=== PATIENT | female | born 1950 | race Caucasian/White ===

== ENCOUNTER 2022-03-20 07:29 | Emergency (ER) | payer MEDICARE, BC ==
--- NOTE | 2022-03-20 08:08 | ED Physician Documentation ---
PD HPI HEAD INJURY - Stated complaint Stated Complaint: HEAD INJ - Chief complaint Chief Complaint: Trauma Hd/Nk - History obtained from History obtained from: Patient, Family - History of Present Illness Mechanism of head injury: Fell Where head injury occurred: [place] Timing - onset: Today Location of injury: Left, Front Quality of pain: Pain Associated symptoms: AMS. No: LOC, Amnesia, Nausea / vomiting, Neck pain, Paresthesias, Seizures, Ear drainage, Nasal drainage Symptoms improve with: Rest Symptoms worsen with: Palpation Contributing factors: No: Anticoagulated, Intoxicated Similar symptoms before: Diagnosis (laceration) Recently seen: Not recently seen - Additional information Additional information: 72-year-old female with a history of hypertension who is on lisinopril and hydrochlorothiazide has had a fall this morning while she was walking her dog and playing a video game on her telephone. She tripped and fell forward striking the left side of her forehead. Her was with her and states that he felt that she was a little bit disoriented for a bit right when this happened. The patient denies any disorientation now and denies any nausea, difficulty concentrating, headache or dizziness. She has had a similar laceration to the left side of her forehead after tripping over her dog a number of years ago. Review of Systems Constitutional: denies: Fever Eyes: denies: Decreased vision Ears: denies: Ear pain Nose: denies: Congestion Throat: denies: Sore throat Respiratory: denies: Cough GI: denies: Nausea, Vomiting, Diarrhea PD PAST MEDICAL HISTORY - Allergies Allergies/Adverse Reactions: Allergies Allergy/AdvReac Type Severity Reaction Status Date / Time No Known Drug Allergies Allergy Verified 03/20/22 07:40 PD ED PE NORMAL - Vitals Vital signs reviewed: Yes - General General: Alert and oriented X 3, No acute distress, Well developed/nourished - HEENT HEENT: PERRL, EOMI, Other (4 cm laceration above the left eye in the forehead without involvement of deeper structures and no foreign material in the wound.) - Neck Neck: Supple, no meningeal sign, No bony TTP - Respiratory Respiratory: No respiratory distress - Derm Derm: Normal color, Warm and dry, No rash - Extremities Extremities: No deformity, No edema - Neuro Neuro: Alert and oriented X 3, tombstone erector 2-12 intact, No motor deficit, No sensory deficit, Normal speech Eye Opening: Spontaneous Motor: Obeys Commands Verbal: Oriented GCS Score: 15 - Psych Psych: Normal mood, Normal affect Results - Vitals Vitals: Vital Signs - 24 hr 03/20/22 07:31 Temperature 36 C L Heart Rate 70 Respiratory 14 Rate Blood Pressure 129/71 O2 Saturation 100 Oxygen O2 Source Room air Procedures - Laceration (location) forehead Length in cm: 4 Wound type: Linear, Clean Neurovascular status: Sensory intact, Motor intact, Vascular intact Anesthesia: Lidocaine 1% Wound preparation: Hibiclens, Irrigated copiously NS, Wound explored, To the base Skin layer closure: Nylon, Interrupted, Size #-0 - enter number (5-0), Sutures - enter # (8) Other: Patient tolerated well, Neurovascular intact, Dressing applied, Tetanus UTD (2016) PD MEDICAL DECISION MAKING - ED course Complexity details: considered differential, d/w patient, d/w family ED course: 72-year-old Ela Ramírez with a laceration above her left eye and a mild concussion has repair of the laceration and will need to have sutures removed in about 5 days. Departure - Departure Disposition: 01 Home, Self Care Clinical Impression: Concussion Qualifiers: Encounter type: initial encounter Loss of consciousness presence/duration: without LOC Qualified Code(s): S06.0X0A - Concussion without loss of consciousness, initial encounter Forehead laceration Qualifiers: Encounter type: initial encounter Qualified Code(s): S01.81XA - Laceration without foreign body of other part of head, initial encounter Condition: Stable Instructions: ED Concussion, ED Laceration Facial Sutr Tape Follow-Up: Kareem Sanchez ARNP [Primary Care Provider] - Comments: Ela, today it looks like you have had a mild concussion and we are expecting of complete recovery in regards to the concussion. The laceration will need to have sutures removed in about 5 days.
[2022-03-20] MEDS: lidocaine 1% 20 ML MDV SUBQ ONE (08:18)
[2022-03-20 09:26] VITALS: BP 115/67
== END 2022-03-20 09:24 | disposition home or self-care (01) ==
LOC: ED 07:29
DX: S01.81XA Laceration without foreign body of other part of head, initial encounter (principal); S06.0X0A Concussion without loss of consciousness, initial encounter; W01.10XA Fall on same level from slipping, tripping and stumbling with subsequent striking against unspecified object, initial encounter; Y93.K1 Activity, walking an animal; Y92.830 Public park as the place of occurrence of the external cause
CPT/HCPCS: 12013; 99281

== ENCOUNTER 2022-12-24 10:04 | Observation (INO) | payer MEDICARE, BC ==
--- OUTSIDE RECORDS SUMMARY | 2022-12-24 10:53 | EXTERNAL MEDICAL SUMMARY RPT | Continuity of Care Document ---
:1950 Author Organization [facility] Address [address] [place] [address] Phone Care Team Providers Name Role Phone Kareem Sanchez Unavailable Unavailable Allergies No information. Encounters No information. Functional Status No information. Immunizations No information. 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 Results/Labs test date author facility value unit interpret ation Result panel 1 (unknown) (no date) (unknown[facility] Result panel 2 (unknown) (no date) (unknown[facility]) Result panel 3 (unknown) (no date) (unknown[facility]) Result panel 4 (unknown) (no date) (unknown[facility]) Result panel 5 (unknown) (no date) (unknown[facility]) Result panel 6 (unknown) (no date) (unknown[facility]) Result panel 7 (unknown) (no date) (unknown[facility]) Result panel 8 (unknown) (no date) (unknown[facility]) Result panel 9 (unknown) (no date) (unknown[facility]) Result panel 10 (unknown) (no date) (unknown[facility]) Result panel 11 (unknown) (no date) (unknown[facility]) Result panel 12 (unknown) (no date) (unknown[facility]) Result panel 13 (unknown) (no date) (unknown[facility]) Result panel 14 (unknown) (no date) (unknown[facility]) Result panel 15 (unknown) (no date) (unknown[facility]) Result panel 16 (unknown) (no date) (unknown[facility]) Result panel 17 (unknown) (no date) (unknown[facility]) Result panel 18 (unknown) (no date) (unknown[facility]) Result panel 19 (unknown) (no date) (unknown[facility]) Result panel 20 (unknown) (no date) (unknown[facility]) Result panel 21 (unknown) (no date) (unknown[facility]) Result panel 22 (unknown) (no date) (unknown[facility]) Result panel 23 (unknown) (no date) (unknown[facility] Result panel 24 (unknown) (no date) (unknown) (unknown) 12.6 % (unkn own) (unknown) (no date) (unknown) (unknown) 13.0 g/dl (unkn own) (unknown) (no date) (unknown) (unknown) 286 x10 3/ul (unkn own) (unknown) (no date) (unknown) (unknown) 3.8 x10 3/ul (unkn own) (unknown) (no date) (unknown) (unknown) 31.4 pg (unkn own) (unknown) (no date) (unknown) (unknown) 33.9 % (unkn own) (unknown) (no date) (unknown) (unknown) 38.3 % (unkn own) (unknown) (no date) (unknown) (unknown) 4.12 x10 6/ul (unkn own) (unknown) (no date) (unknown) (unknown) 92.8 fl (unkn own) Result panel 25 (unknown) (no date) (unknown) (unknown) > 60 ml/min (unkn own) (unknown) (no date) (unknown) (unknown) > 60 ml/min (unkn own) (unknown) (no date) (unknown) (unknown) 0.67 mg/dl (unkn own) (unknown) (no date) (unknown) (unknown) 1.3 mg/dl (unkn own) (unknown) (no date) (unknown) (unknown) 1.5 (units unknown) (unknown) (unknown) (no date) (unknown) (unknown) 100 mmol/l (unkn own) (unknown) (no date) (unknown) (unknown) 137 mmol/l (unkn own) (unknown) (no date) (unknown) (unknown) 156 mg/dl (unkn own) (unknown) (no date) (unknown) (unknown) 156 mg/dl (unkn own) (unknown) (no date) (unknown) (unknown) 18 mg/dl (unkn own) (unknown) (no date) (unknown) (unknown) 2.8 g/dl (unkn own) (unknown) (no date) (unknown) (unknown) 26.9 (units unknown) (unknown) (unknown) (no date) (unknown) (unknown) 31 mmol/l (unkn own) (unknown) (no date) (unknown) (unknown) 35 iu/l (unkn own) (unknown) (no date) (unknown) (unknown) 36 iu/l (unkn own) (unknown) (no date) (unknown) (unknown) 4.0 mmol/l (unkn own) (unknown) (no date) (unknown) (unknown) 4.3 g/dl (unkn own) (unknown) (no date) (unknown) (unknown) 45 u/l (unkn own) (unknown) (no date) (unknown) (unknown) 61 mg/dl (unkn own) (unknown) (no date) (unknown) (unknown) 61 mg/dl (unkn own) (unknown) (no date) (unknown) (unknown) 67 mg/dl (unkn own) (unknown) (no date) (unknown) (unknown) 67 mg/dl (unkn own) (unknown) (no date) (unknown) (unknown) 7.1 g/dl (unkn own) (unknown) (no date) (unknown) (unknown) 82 mg/dl (unkn own) (unknown) (no date) (unknown) (unknown) 82 mg/dl (unkn own) (unknown) (no date) (unknown) (unknown) 87 mg/dl (unkn own) (unknown) (no date) (unknown) (unknown) 87 mg/dl (unkn own) (unknown) (no date) (unknown) (unknown) 9.3 mg/dl (unkn own) Result panel 26 (unknown) (no date) (unknown) (unknown) 0.80 uiu/ml (unkn own) Result panel 27 (unknown) (no (unknown) (unknown) (no value) (units (unk nown) date) unknown) (unknown) (no (unknown) (unknown) [id number] (units (unkn own) date) unknown) (unknown) (no (unknown) (unknown) 09/01/22 (units (unkno wn) date) unknown) (unknown) (no (unknown) (unknown) 72-year-old (units (un known) date) female presents unknown) for annual visit to follow-up on lab work and (unknown) (no (unknown) (unknown) Age/Sex: 72 / F (units (unknown) date) Date of Service: unknown) (unknown) (no (unknown) (unknown) Allergies (units (unkn own) date) unknown) (unknown) (no (unknown) (unknown) [place], [place] (units ( unknown) date) [id number] unknown) (unknown) (no (unknown) (unknown) Anesthesia (units (unk nown) date) unknown) (unknown) (no (unknown) (unknown) Asthma (units (unkno wn) date) unknown) (unknown) (no (unknown) (unknown) Attending Dr: (units ( unknown) date) Kareem ERIC unknown) (unknown) (no (unknown) (unknown) Brother Age: 64 (units (unknown) date) Hypertension unknown) (unknown) (no (unknown) (unknown) Brother Age: 69 (units (unknown) date) Alcoholic unknown) (unknown) (no (unknown) (unknown) Chicken pox (units (un known) date) (-1960) unknown) (unknown) (no (unknown) (unknown) Chief Complaint (units (unknown) date) unknown) (unknown) (no (unknown) (unknown) Chief Complaint: (units (unknown) date) Follow-up lab unknown) work/chronic conditions (unknown) (no (unknown) (unknown) : 1950 (units (unknown) date) Acct:[id number] unknown) (unknown) (no (unknown) (unknown) Dept at (units (unkno wn) date) . unknown) (unknown) (no (unknown) (unknown) Details: (units (unkno wn) date) unknown) (unknown) (no (unknown) (unknown) Documented By: (units (unknown) date) Kareem Sanchez unknown) 12/01/22 0743 (unknown) (no (unknown) (unknown) Draft (units (unkno wn) date) unknown) (unknown) (no (unknown) (unknown) Dyslipidemia (units (u nknown) date) unknown) (unknown) (no (unknown) (unknown) Family History (units (unknown) date) (Reviewed 11/26/21 unknown) @ 10:48 by JEANETH Calvin) (unknown) (no (unknown) (unknown) Family Practice (units (unknown) date) Office Visit unknown) (unknown) (no (unknown) (unknown) Father (units (unknown) date) Cancer unknown) (unknown) (no (unknown) (unknown) [facility]) (unknown) (no (unknown) (unknown) Fractures (units (unkn own) date) unknown) (unknown) (no (unknown) (unknown) 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 (units (unkno wn) date) unknown) (unknown) (no (unknown) (unknown) Grandfather (units (un known) date) Heart unknown) disease (unknown) (no (unknown) (unknown) Grandmother (units (un known) date) Heart unknown) disease (unknown) (no (unknown) (unknown) HPI (units (unkno wn) date) unknown) (unknown) (no (unknown) (unknown) Heart disease (units ( unknown) date) unknown) (unknown) (no (unknown) (unknown) High cholesterol (units (unknown) date) unknown) (unknown) (no (unknown) (unknown) History of (units (unk nown) date) tonsillectomy unknown) (-1953) (unknown) (no (unknown) (unknown) Hyperlipidemia (units (unknown) date) unknown) (unknown) (no (unknown) (unknown) Hypertension (units (u nknown) date) () unknown) (unknown) (no (unknown) (unknown) Hypertension (units (u nknown) date) unknown) (unknown) (no (unknown) (unknown) Hyperthyroidism (units (unknown) date) unknown) (unknown) (no (unknown) (unknown) Hypochondria (units (u nknown) date) unknown) (unknown) (no (unknown) (unknown) Intake (units (unkno wn) date) unknown) (unknown) (no (unknown) (unknown) Last Menstural (units (unknown) date) Cycle + Details unknown) (unknown) (no (unknown) (unknown) Loc: [facility] (units (unkno wn) date) unknown) (unknown) (no (unknown) (unknown) [facility] (-1960) (units (unknown) date) unknown) (unknown) (no (unknown) (unknown) Medical History (units (unknown) date) (Updated 11/26/21 unknown) @ 10:52 by JEANETH Calvin) (unknown) (no (unknown) (unknown) Mother (units (unknown) date) Diabetes mellitus unknown) (unknown) (no (unknown) (unknown) NEEDS LABS (units (unk nown) date) ORDERED AND unknown) COMPLETED. DUE FOR MAMMOGRAM AND COLORECTAL CANCER (unknown) (no (unknown) (unknown) Osteopenia (units (unk nown) date) unknown) (unknown) (no (unknown) (unknown) Osteoporosis (units (u nknown) date) () unknown) (unknown) (no (unknown) (unknown) Other Menstrual (units (unknown) date) Period: unknown) Postmenopausal (unknown) (no (unknown) (unknown) Ovarian cyst (units (u nknown) date) () unknown) (unknown) (no (unknown) (unknown) PFSH (units (unkno wn) date) unknown) (unknown) (no (unknown) (unknown) Patient completed (units (unknown) date) COVID-19 vaccine unknown) series and booster as well as her yearly flu (unknown) (no (unknown) (unknown) Patient is (units (unk nown) date) up-to-date on unknown) mammogram. She declines colonoscopy but does agree to (unknown) (no (unknown) (unknown) Patient reports (units (unknown) date) that she has been unknown) doing well. She is staying active working in (unknown) (no (unknown) (unknown) Patient: (units (unkno wn) date) Ela Ramírez unknown) MR#: M (unknown) (no (unknown) (unknown) Reason For Visit (units (unknown) date) unknown) (unknown) (no (unknown) (unknown) SCREENING. SHE (units (unknown) date) NEVER GOT HER DEXA unknown) SCAN DONE ORDERED LAST YEAR. (unknown) (no (unknown) (unknown) Signed By: (units (unk nown) date) unknown) (unknown) (no (unknown) (unknown) Sister Age: 54 (units (unknown) date) History of unknown) hysterectomy (unknown) (no (unknown) (unknown) Sister Age: 65 (units (unknown) date) History of unknown) hysterectomy (unknown) (no (unknown) (unknown) Smoking Status: (units (unknown) date) Never smoker unknown) (unknown) (no (unknown) (unknown) Status post knee (units (unknown) date) surgery (02/22/06) unknown) (unknown) (no (unknown) (unknown) Status post knee (units (unknown) date) surgery (10/07/07) unknown) (unknown) (no (unknown) (unknown) Status post (units (un known) date) ovarian cystectomy unknown) (-1974) (unknown) (no (unknown) (unknown) Status post tubal (units (unknown) date) ligation (-1982) unknown) (unknown) (no (unknown) (unknown) Stroke (units (unkno wn) date) unknown) (unknown) (no (unknown) (unknown) Surgical History (units (unknown) date) (Reviewed 11/26/21 unknown) @ 10:48 by JEANETH Calvin) (unknown) (no (unknown) (unknown) This note may (units ( unknown) date) have been all or unknown) partially generated using voice recognition (unknown) (no (unknown) (unknown) Tinnitus (-2011) (units (unknown) date) unknown) (unknown) (no (unknown) (unknown) Tobacco + (units (unkn own) date) Substance Use unknown) (unknown) (no (unknown) (unknown) Tobacco Status (units (unknown) date) unknown) (unknown) (no (unknown) (unknown) Visit Reasons: (units (unknown) date) Annual physical unknown) (unknown) (no (unknown) (unknown) We saw the (units (unk nown) date) patient last about unknown) 1 year ago. At that time labs and blood pressure (unknown) (no (unknown) (unknown) chronic (units (unkno wn) date) conditions/update unknown) medications. She has not had any recent lab work. (unknown) (no (unknown) (unknown) fairly healthy (units (unknown) date) diet overall. She unknown) underwent cataract surgery bilaterally over (unknown) (no (unknown) (unknown) fit test. She has (units (unknown) date) a history of unknown) osteopenia, last DEXA was in 2018. (unknown) (no (unknown) (unknown) have occurred. If (units (unknown) date) there are any unknown) questions, please contact the Medical Records (unknown) (no (unknown) (unknown) her yd and doing (units (unknown) date) a lot of walking unknown) in the park. She reports that she eats a (unknown) (no (unknown) (unknown) may occur. (units (unk nown) date) Occasional unknown) wrong-word or 'sound-alike' substitutions may have (unknown) (no (unknown) (unknown) occasionally; she (units (unknown) date) uses a THC balm as unknown) needed which helps this. (unknown) (no (unknown) (unknown) occurred due to (units (unknown) date) the inherent unknown) limitations of voice recognition software. Please (unknown) (no (unknown) (unknown) penicillin G (units (u nknown) date) [PENICILLIN G] unknown) Allergy (Unknown, Verified 11/26/21 09:56) (unknown) (no (unknown) (unknown) read the note (units ( unknown) date) carefully and unknown) recognize, using context, where these substitutions (unknown) (no (unknown) (unknown) software. 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 Her left knee pain returns (unknown) (no (unknown) (unknown) vaccine. (units (unkno wn) date) unknown) (unknown) (no (unknown) (unknown) were stable and (units (unknown) date) we maintained her unknown) regimen as it was. Result panel 28 (unknown) (no (unknown) (unknown) (no value) (units (unk nown) date) unknown) (unknown) (no (unknown) (unknown) (PF)) 0.5 ml IM (units (unknown) date) ONCE #1 ea unknown) 11/26/21 [Rx Confirmed 12/01/22] (unknown) (no (unknown) (unknown) .COMPLEX #90 tabs (units (unknown) date) 08/26/22 [Rx unknown) Confirmed 12/01/22] (unknown) (no (unknown) (unknown) [id number] (units (unkn own) date) unknown) (unknown) (no (unknown) (unknown) 12/01/22 (units (unkno wn) date) unknown) (unknown) (no (unknown) (unknown) 12/01/22] (units (unkn own) date) unknown) (unknown) (no (unknown) (unknown) 11:13 (units (unkno wn) date) unknown) (unknown) (no (unknown) (unknown) 72 yo female (units (u nknown) date) presents today for unknown) annual Medical Well[facility]. (unknown) (no (unknown) (unknown) 72-year-old (units (un known) date) female presents unknown) for annual visit to follow-up on lab work and (unknown) (no (unknown) (unknown) Age/Sex: 72 / F (units (unknown) date) Date of Service: unknown) (unknown) (no (unknown) (unknown) Allergies (units (unkn own) date) unknown) (unknown) (no (unknown) (unknown) [place], [place] (units ( unknown) date) [id number] unknown) (unknown) (no (unknown) (unknown) Anesthesia (units (unk nown) date) unknown) (unknown) (no (unknown) (unknown) Asthma (units (unkno wn) date) unknown) (unknown) (no (unknown) (unknown) Attending Dr: (units ( unknown) date) Kareem ERIC unknown) (unknown) (no (unknown) (unknown) BMI 22.8 (units (unkno wn) date) unknown) (unknown) (no (unknown) (unknown) BP 120/80 (units (unkn own) date) unknown) (unknown) (no (unknown) (unknown) Blood Pressure (units (unknown) date) Location Lt unknown) brachial (unknown) (no (unknown) (unknown) Brother Age: 64 (units (unknown) date) Hypertension unknown) (unknown) (no (unknown) (unknown) Brother Age: 69 (units (unknown) date) Alcoholic unknown) (unknown) (no (unknown) (unknown) Chicken pox (units (un known) date) (-1960) unknown) (unknown) (no (unknown) (unknown) Chief Complaint (units (unknown) date) unknown) (unknown) (no (unknown) (unknown) Chief Complaint: (units (unknown) date) Follow-up lab unknown) work/chronic conditions (unknown) (no (unknown) (unknown) : 1950 (units (unknown) date) Acct:[id number] unknown) (unknown) (no (unknown) (unknown) Dept at (units (unkno wn) date) . unknown) (unknown) (no (unknown) (unknown) Details: (units (unkno wn) date) unknown) (unknown) (no (unknown) (unknown) Documented By: (units (unknown) date) Kareem Sanchez unknown) 12/01/22 0743 (unknown) (no (unknown) (unknown) Draft (units (unkno wn) date) unknown) (unknown) (no (unknown) (unknown) Dyslipidemia (units (u nknown) date) unknown) (unknown) (no (unknown) (unknown) Family History (units (unknown) date) (Reviewed 11/26/21 unknown) @ 10:48 by JEANETH Calvin) (unknown) (no (unknown) (unknown) Family Practice (units (unknown) date) Office Visit unknown) (unknown) (no (unknown) (unknown) Father (units (unknown) date) Cancer unknown) (unknown) (no (unknown) (unknown) [facility] unknown) (unknown) (no (unknown) (unknown) Fractures (units (unkn own) date) unknown) (unknown) (no (unknown) (unknown) GI UPSET (units (unkno wn) date) unknown) (unknown) (no (unknown) (unknown) Grandfather (units (un known) date) Heart unknown) disease (unknown) (no (unknown) (unknown) Grandmother (units (un known) date) Heart unknown) disease (unknown) (no (unknown) (unknown) HPI (units (unkno wn) date) unknown) (unknown) (no (unknown) (unknown) Heart disease (units ( unknown) date) unknown) (unknown) (no (unknown) (unknown) Height 5 ft 6.5 (units (unknown) date) in unknown) (unknown) (no (unknown) (unknown) High cholesterol (units (unknown) date) unknown) (unknown) (no (unknown) (unknown) History of (units (unk nown) date) tonsillectomy unknown) (-1953) (unknown) (no (unknown) (unknown) Hyperlipidemia (units (unknown) date) unknown) (unknown) (no (unknown) (unknown) Hypertension (units (u nknown) date) (-1977) unknown) (unknown) (no (unknown) (unknown) Hypertension (units (u nknown) date) unknown) (unknown) (no (unknown) (unknown) Hyperthyroidism (units (unknown) date) unknown) (unknown) (no (unknown) (unknown) Hypochondria (units (u nknown) date) unknown) (unknown) (no (unknown) (unknown) Intake Note: (units (u nknown) date) unknown) (unknown) (no (unknown) (unknown) Intake performed (units (unknown) date) by: Sara Meyer unknown) (unknown) (no (unknown) (unknown) Intake (units (unkno wn) date) unknown) (unknown) (no (unknown) (unknown) Intake- Clincial (units (unknown) date) 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 unknown) (unknown) (no (unknown) (unknown) Last Menstural (units (unknown) date) Cycle + Details unknown) (unknown) (no (unknown) (unknown) Loc: [facility] (units (unkno wn) date) unknown) (unknown) (no (unknown) (unknown) [facility] (-1960) (units (unknown) date) unknown) (unknown) (no (unknown) (unknown) Medical History (units (unknown) date) (Updated 11/26/21 unknown) @ 10:52 by JEANETH Calvin) (unknown) (no (unknown) (unknown) Medications (units (un known) date) unknown) (unknown) (no (unknown) (unknown) Mother (units (unknown) date) Diabetes mellitus unknown) (unknown) (no (unknown) (unknown) NEEDS LABS (units (unk nown) date) ORDERED AND unknown) COMPLETED. DUE FOR MAMMOGRAM AND COLORECTAL CANCER (unknown) (no (unknown) (unknown) Osteopenia (units (unk nown) date) unknown) (unknown) (no (unknown) (unknown) Osteoporosis (units (u nknown) date) () unknown) (unknown) (no (unknown) (unknown) Other Menstrual (units (unknown) date) Period: unknown) Postmenopausal (unknown) (no (unknown) (unknown) Ovarian cyst (units (u nknown) date) (-1975) unknown) (unknown) (no (unknown) (unknown) Oxygen Delivery (units (unknown) date) Method room air unknown) (unknown) (no (unknown) (unknown) PFSH (units (unkno wn) date) unknown) (unknown) (no (unknown) (unknown) Patient completed (units (unknown) date) COVID-19 vaccine unknown) series and booster as well as her yearly flu (unknown) (no (unknown) (unknown) Patient is (units (unk nown) date) up-to-date on unknown) mammogram. She declines colonoscopy but does agree to (unknown) (no (unknown) (unknown) Patient reports (units (unknown) date) that she has been unknown) doing well. She is staying active working in (unknown) (no (unknown) (unknown) Patient: (units (unkno wn) date) Ela Ramírez unknown) MR#: M (unknown) (no (unknown) (unknown) Position Sitting (units (unknown) date) unknown) (unknown) (no (unknown) (unknown) Pulse 66 (units (unkno wn) date) unknown) (unknown) (no (unknown) (unknown) Pulse Oximetry (units (unknown) date) (%) 99 unknown) (unknown) (no (unknown) (unknown) Pulse Source (units (u nknown) date) Monitor unknown) (unknown) (no (unknown) (unknown) Reason For Visit (units (unknown) date) unknown) (unknown) (no (unknown) (unknown) Respiration 16 (units (unknown) date) unknown) (unknown) (no (unknown) (unknown) SCREENING. SHE (units (unknown) date) NEVER GOT HER DEXA unknown) SCAN DONE ORDERED LAST YEAR. (unknown) (no (unknown) (unknown) Signed By: (units (unk nown) date) unknown) (unknown) (no (unknown) (unknown) Sister Age: 54 (units (unknown) date) History of unknown) hysterectomy (unknown) (no (unknown) (unknown) Sister Age: 65 (units (unknown) date) History of unknown) hysterectomy (unknown) (no (unknown) (unknown) Smoking Status: (units (unknown) date) Never smoker unknown) (unknown) (no (unknown) (unknown) Status post knee (units (unknown) date) surgery (02/22/06) unknown) (unknown) (no (unknown) (unknown) Status post knee (units (unknown) date) surgery (10/07/07) unknown) (unknown) (no (unknown) (unknown) Status post (units (un known) date) ovarian cystectomy unknown) (-1974) (unknown) (no (unknown) (unknown) Status post tubal (units (unknown) date) ligation () unknown) (unknown) (no (unknown) (unknown) Stroke (units (unkno wn) date) unknown) (unknown) (no (unknown) (unknown) Surgical History (units (unknown) date) (Reviewed 11/26/21 unknown) @ 10:48 by JEANETH Calvin) (unknown) (no (unknown) (unknown) This note may (units ( unknown) date) have been all or unknown) partially generated using voice recognition (unknown) (no (unknown) (unknown) Tinnitus (-2011) (units (unknown) date) unknown) (unknown) (no (unknown) (unknown) Tobacco + (units (unkn own) date) Substance Use unknown) (unknown) (no (unknown) (unknown) Tobacco Status (units (unknown) date) unknown) (unknown) (no (unknown) (unknown) Visit Reasons: (units (unknown) date) Annual physical unknown) (unknown) (no (unknown) (unknown) Vitals (units (unkno wn) date) unknown) (unknown) (no (unknown) (unknown) We saw the (units (unk nown) date) patient last about unknown) 1 year ago. At that time labs and blood pressure (unknown) (no (unknown) (unknown) Weight 144 lb (units ( unknown) date) unknown) (unknown) (no (unknown) (unknown) [Rx Confirmed (units ( unknown) date) 12/01/22] unknown) (unknown) (no (unknown) (unknown) atorvastatin 10 (units (unknown) date) mg tablet unknown) (Lipitor) 10 mg PO HS #90 tabs 08/26/22 [Rx Confirmed (unknown) (no (unknown) (unknown) chronic (units (unkno wn) date) conditions/update unknown) medications. She has not had any recent lab work. (unknown) (no (unknown) (unknown) fairly healthy (units (unknown) date) diet overall. She unknown) underwent cataract surgery bilaterally over (unknown) (no (unknown) (unknown) fit test. She has (units (unknown) date) a history of unknown) osteopenia, last DEXA was in 2018. (unknown) (no (unknown) (unknown) have occurred. If (units (unknown) date) there are any unknown) questions, please contact the Medical Records (unknown) (no (unknown) (unknown) her yd and doing (units (unknown) date) a lot of walking unknown) in the park. She reports that she eats a (unknown) (no (unknown) (unknown) levothyroxine 112 (units (unknown) date) mcg tablet unknown) (Synthroid) See Rx Instructions .Route .COMPLEX #90 (unknown) (no (unknown) (unknown) lisinopril 10 mg (units (unknown) date) tablet See Rx unknown) Instructions .Route .COMPLEX #90 tabs 11/17/22 (unknown) (no (unknown) (unknown) may occur. (units (unk nown) date) Occasional unknown) wrong-word or 'sound-alike' substitutions may have (unknown) (no (unknown) (unknown) occasionally; she (units (unknown) date) uses a THC balm as unknown) needed which helps this. (unknown) (no (unknown) (unknown) occurred due to (units (unknown) date) the inherent unknown) limitations of voice recognition software. Please (unknown) (no (unknown) (unknown) penicillin G (units (u nknown) date) [PENICILLIN G] unknown) Allergy (Unknown, Verified 12/01/22 11:12) (unknown) (no (unknown) (unknown) read the note (units ( unknown) date) carefully and unknown) recognize, using context, where these substitutions (unknown) (no (unknown) (unknown) software. 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 Her left knee pain returns (unknown) (no (unknown) (unknown) triamterene 75 (units (unknown) date) mg-hydrochlorothia unknown) zide 50 mg tablet See Rx Instructions .Route (unknown) (no (unknown) (unknown) vaccine. (units (unkno wn) date) unknown) (unknown) (no (unknown) (unknown) varicella-zoster (units (unknown) date) glycoE vacc-AS01B unknown) adj(PF) 50 mcg/0.5 mL IM susp, kit (Shingrix (unknown) (no (unknown) (unknown) were stable and (units (unknown) date) we maintained her unknown) regimen as it was. Result panel 29 (unknown) (no (unknown) (unknown) (no value) (units (unk nown) date) unknown) (unknown) (no (unknown) (unknown) (PF)) 0.5 ml IM (units (unknown) date) ONCE #1 ea unknown) 11/26/21 [Rx Confirmed 12/01/22] (unknown) (no (unknown) (unknown) .COMPLEX #90 tabs (units (unknown) date) 08/26/22 [Rx unknown) Confirmed 12/01/22] (unknown) (no (unknown) (unknown) [id number] (units (unkn own) date) unknown) (unknown) (no (unknown) (unknown) 12/01/22 (units (unkno wn) date) unknown) (unknown) (no (unknown) (unknown) 12/01/22] (units (unkn own) date) unknown) (unknown) (no (unknown) (unknown) 11:13 (units (unkno wn) date) unknown) (unknown) (no (unknown) (unknown) 72 yo female (units (u nknown) date) presents today for unknown) annual Medical Wellness. (unknown) (no (unknown) (unknown) 72-year-old (units (un known) date) female presents unknown) for annual visit to follow-up on lab work and (unknown) (no (unknown) (unknown) Age/Sex: 72 / F (units (unknown) date) Date of Service: unknown) (unknown) (no (unknown) (unknown) Allergies (units (unkn own) date) unknown) (unknown) (no (unknown) (unknown) [place], [place] (units ( unknown) date) [id number] unknown) (unknown) (no (unknown) (unknown) Anesthesia (units (unk nown) date) unknown) (unknown) (no (unknown) (unknown) Asthma (units (unkno wn) date) unknown) (unknown) (no (unknown) (unknown) Attending Dr: (units ( unknown) date) Kareem ERIC unknown) (unknown) (no (unknown) (unknown) BMI 22.8 (units (unkno wn) date) unknown) (unknown) (no (unknown) (unknown) BP 120/80 (units (unkn own) date) unknown) (unknown) (no (unknown) (unknown) Blood Pressure (units (unknown) date) Location Lt unknown) brachial (unknown) (no (unknown) (unknown) Brother Age: 64 (units (unknown) date) Hypertension unknown) (unknown) (no (unknown) (unknown) Brother Age: 69 (units (unknown) date) Alcoholic unknown) (unknown) (no (unknown) (unknown) Chicken pox (units (un known) date) (-1960) unknown) (unknown) (no (unknown) (unknown) Chief Complaint (units (unknown) date) unknown) (unknown) (no (unknown) (unknown) Chief Complaint: (units (unknown) date) Follow-up lab unknown) work/chronic conditions (unknown) (no (unknown) (unknown) : 1950 (units (unknown) date) Acct:[id number] unknown) (unknown) (no (unknown) (unknown) Dept at (units (unkno wn) date) . unknown) (unknown) (no (unknown) (unknown) Details: (units (unkno wn) date) unknown) (unknown) (no (unknown) (unknown) Documented By: (units (unknown) date) Kareem Sanchez unknown) 12/01/22 0743 (unknown) (no (unknown) (unknown) Draft (units (unkno wn) date) unknown) (unknown) (no (unknown) (unknown) Dyslipidemia (units (u nknown) date) unknown) (unknown) (no (unknown) (unknown) Family History (units (unknown) date) (Reviewed 11/26/21 unknown) @ 10:48 by JEANETH Calvin) (unknown) (no (unknown) (unknown) Family Practice (units (unknown) date) Office Visit unknown) (unknown) (no (unknown) (unknown) Father (units (unknown) date) Cancer unknown) (unknown) (no (unknown) (unknown) [facility]) (unknown) (no (unknown) (unknown) Fractures (units (unkn own) date) unknown) (unknown) (no (unknown) (unknown) GI UPSET (units (unkno wn) date) unknown) (unknown) (no (unknown) (unknown) Grandfather (units (un known) date) Heart unknown) disease (unknown) (no (unknown) (unknown) Grandmother (units (un known) date) Heart unknown) disease (unknown) (no (unknown) (unknown) HPI (units (unkno wn) date) unknown) (unknown) (no (unknown) (unknown) Heart disease (units ( unknown) date) unknown) (unknown) (no (unknown) (unknown) Height 168.91 cm (units (unknown) date) unknown) (unknown) (no (unknown) (unknown) High cholesterol (units (unknown) date) unknown) (unknown) (no (unknown) (unknown) History of (units (unk nown) date) tonsillectomy unknown) (-1953) (unknown) (no (unknown) (unknown) Hyperlipidemia (units (unknown) date) unknown) (unknown) (no (unknown) (unknown) Hypertension (units (u nknown) date) (-1977) unknown) (unknown) (no (unknown) (unknown) Hypertension (units (u nknown) date) unknown) (unknown) (no (unknown) (unknown) Hyperthyroidism (units (unknown) date) unknown) (unknown) (no (unknown) (unknown) Hypochondria (units (u nknown) date) unknown) (unknown) (no (unknown) (unknown) Intake Note: (units (u nknown) date) unknown) (unknown) (no (unknown) (unknown) Intake performed (units (unknown) date) by: Sara Meyer unknown) (unknown) (no (unknown) (unknown) Intake (units (unkno wn) date) unknown) (unknown) (no (unknown) (unknown) Intake- Clincial (units (unknown) date) Staff unknown) (unknown) (no (unknown) (unknown) Last Menstural (units (unknown) date) Cycle + Details unknown) (unknown) (no (unknown) (unknown) Loc: [facility] (units (unkno wn) date) unknown) (unknown) (no (unknown) (unknown) Measles (-1960) (units (unknown) date) unknown) (unknown) (no (unknown) (unknown) Medical History (units (unknown) date) (Updated 11/26/21 unknown) @ 10:52 by JEANETH Calvin) (unknown) (no (unknown) (unknown) Medications (units (un known) date) unknown) (unknown) (no (unknown) (unknown) Mother (units (unknown) date) Diabetes mellitus unknown) (unknown) (no (unknown) (unknown) NEEDS LABS (units (unk nown) date) ORDERED AND unknown) COMPLETED. DUE FOR MAMMOGRAM AND COLORECTAL CANCER (unknown) (no (unknown) (unknown) Osteopenia (units (unk nown) date) unknown) (unknown) (no (unknown) (unknown) Osteoporosis (units (u nknown) date) () unknown) (unknown) (no (unknown) (unknown) Other Menstrual (units (unknown) date) Period: unknown) Postmenopausal (unknown) (no (unknown) (unknown) Ovarian cyst (units (u nknown) date) (-1974) unknown) (unknown) (no (unknown) (unknown) Oxygen Delivery (units (unknown) date) Method room air unknown) (unknown) (no (unknown) (unknown) PFSH (units (unkno wn) date) unknown) (unknown) (no (unknown) (unknown) Patient completed (units (unknown) date) COVID-19 vaccine unknown) series and booster as well as her yearly flu (unknown) (no (unknown) (unknown) Patient is (units (unk nown) date) up-to-date on unknown) mammogram. She declines colonoscopy but does agree to (unknown) (no (unknown) (unknown) Patient reports (units (unknown) date) that she has been unknown) doing well. She is staying active working in (unknown) (no (unknown) (unknown) Patient: (units (unkno wn) date) Ela Ramírez unknown) MR#: M (unknown) (no (unknown) (unknown) Position Sitting (units (unknown) date) unknown) (unknown) (no (unknown) (unknown) Pulse 66 (units (unkno wn) date) unknown) (unknown) (no (unknown) (unknown) Pulse Oximetry (units (unknown) date) (%) 99 unknown) (unknown) (no (unknown) (unknown) Pulse Source (units (u nknown) date) Monitor unknown) (unknown) (no (unknown) (unknown) Reason For Visit (units (unknown) date) unknown) (unknown) (no (unknown) (unknown) Respiration 16 (units (unknown) date) unknown) (unknown) (no (unknown) (unknown) SCREENING. SHE (units (unknown) date) NEVER GOT HER DEXA unknown) SCAN DONE ORDERED LAST YEAR. (unknown) (no (unknown) (unknown) Signed By: (units (unk nown) date) unknown) (unknown) (no (unknown) (unknown) Sister Age: 54 (units (unknown) date) History of unknown) hysterectomy (unknown) (no (unknown) (unknown) Sister Age: 65 (units (unknown) date) History of unknown) hysterectomy (unknown) (no (unknown) (unknown) Smoking Status: (units (unknown) date) Never smoker unknown) (unknown) (no (unknown) (unknown) Status post knee (units (unknown) date) surgery (02/22/06) unknown) (unknown) (no (unknown) (unknown) Status post knee (units (unknown) date) surgery (10/07/07) unknown) (unknown) (no (unknown) (unknown) Status post (units (un known) date) ovarian cystectomy unknown) () (unknown) (no (unknown) (unknown) Status post tubal (units (unknown) date) ligation () unknown) (unknown) (no (unknown) (unknown) Stroke (units (unkno wn) date) unknown) (unknown) (no (unknown) (unknown) Surgical History (units (unknown) date) (Reviewed 11/26/21 unknown) @ 10:48 by JEANETH Calvin) (unknown) (no (unknown) (unknown) This note may (units ( unknown) date) have been all or unknown) partially generated using voice recognition (unknown) (no (unknown) (unknown) Tinnitus (-2011) (units (unknown) date) unknown) (unknown) (no (unknown) (unknown) Tobacco + (units (unkn own) date) Substance Use unknown) (unknown) (no (unknown) (unknown) Tobacco Status (units (unknown) date) unknown) (unknown) (no (unknown) (unknown) Visit Reasons: (units (unknown) date) Annual physical unknown) (unknown) (no (unknown) (unknown) Vitals (units (unkno wn) date) unknown) (unknown) (no (unknown) (unknown) We saw the (units (unk nown) date) patient last about unknown) 1 year ago. At that time labs and blood pressure (unknown) (no (unknown) (unknown) Weight 65.317 kg (units (unknown) date) unknown) (unknown) (no (unknown) (unknown) [Rx Confirmed (units ( unknown) date) 12/01/22] unknown) (unknown) (no (unknown) (unknown) atorvastatin 10 (units (unknown) date) mg tablet unknown) (Lipitor) 10 mg PO HS #90 tabs 08/26/22 [Rx Confirmed (unknown) (no (unknown) (unknown) chronic (units (unkno wn) date) conditions/update unknown) medications. She has not had any recent lab work. (unknown) (no (unknown) (unknown) fairly healthy (units (unknown) date) diet overall. She unknown) underwent cataract surgery bilaterally over (unknown) (no (unknown) (unknown) fit test. She has (units (unknown) date) a history of unknown) osteopenia, last DEXA was in 2018. (unknown) (no (unknown) (unknown) have occurred. If (units (unknown) date) there are any unknown) questions, please contact the Medical Records (unknown) (no (unknown) (unknown) her yd and doing (units (unknown) date) a lot of walking unknown) in the park. She reports that she eats a (unknown) (no (unknown) (unknown) levothyroxine 112 (units (unknown) date) mcg tablet unknown) (Synthroid) See Rx Instructions .Route .COMPLEX #90 (unknown) (no (unknown) (unknown) lisinopril 10 mg (units (unknown) date) tablet See Rx unknown) Instructions .Route .COMPLEX #90 tabs 11/17/22 (unknown) (no (unknown) (unknown) may occur. (units (unk nown) date) Occasional unknown) wrong-word or 'sound-alike' substitutions may have (unknown) (no (unknown) (unknown) new puppy (units (unkn own) date) dachsund. walking unknown) a lot on beach. (unknown) (no (unknown) (unknown) occasionally; she (units (unknown) date) uses a THC balm as unknown) needed which helps this. (unknown) (no (unknown) (unknown) occurred due to (units (unknown) date) the inherent unknown) limitations of voice recognition software. Please (unknown) (no (unknown) (unknown) penicillin G (units (u nknown) date) [PENICILLIN G] unknown) Allergy (Unknown, Verified 12/01/22 11:12) (unknown) (no (unknown) (unknown) read the note (units ( unknown) date) carefully and unknown) recognize, using context, where these substitutions (unknown) (no (unknown) (unknown) software. 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 Her left knee pain returns (unknown) (no (unknown) (unknown) triamterene 75 (units (unknown) date) mg-hydrochlorothia unknown) zide 50 mg tablet See Rx Instructions .Route (unknown) (no (unknown) (unknown) vaccine. (units (unkno wn) date) unknown) (unknown) (no (unknown) (unknown) varicella-zoster (units (unknown) date) glycoE vacc-AS01B unknown) adj(PF) 50 mcg/0.5 mL IM susp, kit (Shingrix (unknown) (no (unknown) (unknown) were stable and (units (unknown) date) we maintained her unknown) regimen as it was. Result panel 30 (unknown) (no (unknown) (unknown) (no value) (units (unk nown) date) unknown) (unknown) (no (unknown) (unknown) (PF)) 0.5 ml IM (units (unknown) date) ONCE #1 ea unknown) 11/26/21 [Rx Confirmed 12/01/22] (unknown) (no (unknown) (unknown) .COMPLEX #90 tabs (units (unknown) date) 08/26/22 [Rx unknown) Confirmed 12/01/22] (unknown) (no (unknown) (unknown) [id number] (units (unkn own) date) unknown) (unknown) (no (unknown) (unknown) 12/01/22 (units (unkno wn) date) unknown) (unknown) (no (unknown) (unknown) 12/01/22] (units (unkn own) date) unknown) (unknown) (no (unknown) (unknown) 11:13 (units (unkno wn) date) unknown) (unknown) (no (unknown) (unknown) 72 yo female (units (u nknown) date) presents today for unknown) annual Medical Wellness. (unknown) (no (unknown) (unknown) 72-year-old (units (un known) date) female presents unknown) for annual visit to follow-up on lab work and (unknown) (no (unknown) (unknown) Age/Sex: 72 / F (units (unknown) date) Date of Service: unknown) (unknown) (no (unknown) (unknown) Allergies (units (unkn own) date) unknown) (unknown) (no (unknown) (unknown) [place], [place] (units ( unknown) date) [id number] unknown) (unknown) (no (unknown) (unknown) Anesthesia (units (unk nown) date) unknown) (unknown) (no (unknown) (unknown) Asthma (units (unkno wn) date) unknown) (unknown) (no (unknown) (unknown) Attending Dr: (units ( unknown) date) Kareem ERIC unknown) (unknown) (no (unknown) (unknown) BMI 22.8 (units (unkno wn) date) unknown) (unknown) (no (unknown) (unknown) BP 120/80 (units (unkn own) date) unknown) (unknown) (no (unknown) (unknown) Blood Pressure (units (unknown) date) Location Lt unknown) brachial (unknown) (no (unknown) (unknown) Brother Age: 64 (units (unknown) date) Hypertension unknown) (unknown) (no (unknown) (unknown) Brother Age: 69 (units (unknown) date) Alcoholic unknown) (unknown) (no (unknown) (unknown) Chicken pox (units (un known) date) (-1959) unknown) (unknown) (no (unknown) (unknown) Chief Complaint (units (unknown) date) unknown) (unknown) (no (unknown) (unknown) Chief Complaint: (units (unknown) date) Follow-up lab unknown) work/chronic conditions (unknown) (no (unknown) (unknown) : 1950 (units (unknown) date) Acct:[id number] unknown) (unknown) (no (unknown) (unknown) DONE ORDERED (units (unknown) date) LAST YEAR. unknown) (unknown) (no (unknown) (unknown) DUE FOR MAMMOGRAM (units (unknown) date) AND COLORECTAL unknown) CANCER SCREENING. SHE NEVER GOT HER DEXA SCAN (unknown) (no (unknown) (unknown) Dept at (units (unkno wn) date) . unknown) (unknown) (no (unknown) (unknown) Details: (units (unkno wn) date) unknown) (unknown) (no (unknown) (unknown) Documented By: (units (unknown) date) Kareem Sanchez unknown) 12/01/22 0743 (unknown) (no (unknown) (unknown) Draft (units (unkno wn) date) unknown) (unknown) (no (unknown) (unknown) Dyslipidemia (units (u nknown) date) unknown) (unknown) (no (unknown) (unknown) Family History (units (unknown) date) (Reviewed 11/26/21 unknown) @ 10:48 by JEANETH Calvin) (unknown) (no (unknown) (unknown) Family Practice (units (unknown) date) Office Visit unknown) (unknown) (no (unknown) (unknown) Father (units (unknown) date) Cancer unknown) (unknown) (no (unknown) (unknown) [facility] unknown) (unknown) (no (unknown) (unknown) Fractures (units (unkn own) date) unknown) (unknown) (no (unknown) (unknown) GI UPSET (units (unkno wn) date) unknown) (unknown) (no (unknown) (unknown) Grandfather (units (un known) date) Heart unknown) disease (unknown) (no (unknown) (unknown) Grandmother (units (un known) date) Heart unknown) disease (unknown) (no (unknown) (unknown) HPI (units (unkno wn) date) unknown) (unknown) (no (unknown) (unknown) Heart disease (units ( unknown) date) unknown) (unknown) (no (unknown) (unknown) Height 168.91 cm (units (unknown) date) unknown) (unknown) (no (unknown) (unknown) High cholesterol (units (unknown) date) unknown) (unknown) (no (unknown) (unknown) History of (units (unk nown) date) tonsillectomy unknown) (-1953) (unknown) (no (unknown) (unknown) Hyperlipidemia (units (unknown) date) unknown) (unknown) (no (unknown) (unknown) Hypertension (units (u nknown) date) () unknown) (unknown) (no (unknown) (unknown) Hypertension (units (u nknown) date) unknown) (unknown) (no (unknown) (unknown) Hyperthyroidism (units (unknown) date) unknown) (unknown) (no (unknown) (unknown) Hypochondria (units (u nknown) date) unknown) (unknown) (no (unknown) (unknown) Intake Note: (units (u nknown) date) unknown) (unknown) (no (unknown) (unknown) Intake performed (units (unknown) date) by: Sidney,Sara L unknown) (unknown) (no (unknown) (unknown) Intake (units (unkno wn) date) unknown) (unknown) (no (unknown) (unknown) Intake- Clincial (units (unknown) date) Staff unknown) (unknown) (no (unknown) (unknown) Last Menstural (units (unknown) date) Cycle + Details unknown) (unknown) (no (unknown) (unknown) Loc: [facility] (units (unkno wn) date) unknown) (unknown) (no (unknown) (unknown) [facility] (-1960) (units (unknown) date) unknown) (unknown) (no (unknown) (unknown) Medical History (units (unknown) date) (Updated 11/26/21 unknown) @ 10:52 by JEANETH Calvin) (unknown) (no (unknown) (unknown) Medications (units (un known) date) unknown) (unknown) (no (unknown) (unknown) Mother (units (unknown) date) Diabetes mellitus unknown) (unknown) (no (unknown) (unknown) Osteopenia (units (unk nown) date) unknown) (unknown) (no (unknown) (unknown) Osteoporosis (units (u nknown) date) () unknown) (unknown) (no (unknown) (unknown) Other Menstrual (units (unknown) date) Period: unknown) Postmenopausal (unknown) (no (unknown) (unknown) Ovarian cyst (units (u nknown) date) () unknown) (unknown) (no (unknown) (unknown) Oxygen Delivery (units (unknown) date) Method room air unknown) (unknown) (no (unknown) (unknown) PFSH (units (unkno wn) date) unknown) (unknown) (no (unknown) (unknown) Patient completed (units (unknown) date) COVID-19 vaccine unknown) series and booster as well as her yearly flu (unknown) (no (unknown) (unknown) Patient is (units (unk nown) date) up-to-date on unknown) mammogram. She declines colonoscopy but does agree to (unknown) (no (unknown) (unknown) Patient reports (units (unknown) date) that she has been unknown) doing well. She is staying active working in (unknown) (no (unknown) (unknown) Patient: (units (unkno wn) date) Ela Ramírez unknown) MR#: M (unknown) (no (unknown) (unknown) Position Sitting (units (unknown) date) unknown) (unknown) (no (unknown) (unknown) Pulse 66 (units (unkno wn) date) unknown) (unknown) (no (unknown) (unknown) Pulse Oximetry (units (unknown) date) (%) 99 unknown) (unknown) (no (unknown) (unknown) Pulse Source (units (u nknown) date) Monitor unknown) (unknown) (no (unknown) (unknown) Reason For Visit (units (unknown) date) unknown) (unknown) (no (unknown) (unknown) Respiration 16 (units (unknown) date) unknown) (unknown) (no (unknown) (unknown) Signed By: (units (unk nown) date) unknown) (unknown) (no (unknown) (unknown) Sister Age: 54 (units (unknown) date) History of unknown) hysterectomy (unknown) (no (unknown) (unknown) Sister Age: 65 (units (unknown) date) History of unknown) hysterectomy (unknown) (no (unknown) (unknown) Smoking Status: (units (unknown) date) Never smoker unknown) (unknown) (no (unknown) (unknown) Status post knee (units (unknown) date) surgery (02/22/06) unknown) (unknown) (no (unknown) (unknown) Status post knee (units (unknown) date) surgery (10/07/07) unknown) (unknown) (no (unknown) (unknown) Status post (units (un known) date) ovarian cystectomy unknown) () (unknown) (no (unknown) (unknown) Status post tubal (units (unknown) date) ligation () unknown) (unknown) (no (unknown) (unknown) Stroke (units (unkno wn) date) unknown) (unknown) (no (unknown) (unknown) Surgical History (units (unknown) date) (Reviewed 11/26/21 unknown) @ 10:48 by JEANETH Calvin) (unknown) (no (unknown) (unknown) This note may (units ( unknown) date) have been all or unknown) partially generated using voice recognition (unknown) (no (unknown) (unknown) Tinnitus (-2012) (units (unknown) date) unknown) (unknown) (no (unknown) (unknown) Tobacco + (units (unkn own) date) Substance Use unknown) (unknown) (no (unknown) (unknown) Tobacco Status (units (unknown) date) unknown) (unknown) (no (unknown) (unknown) Visit Reasons: (units (unknown) date) Annual physical unknown) (unknown) (no (unknown) (unknown) Vitals (units (unkno wn) date) unknown) (unknown) (no (unknown) (unknown) We saw the (units (unk nown) date) patient last about unknown) 1 year ago. At that time labs and blood pressure (unknown) (no (unknown) (unknown) Weight 65.317 kg (units (unknown) date) unknown) (unknown) (no (unknown) (unknown) [Rx Confirmed (units ( unknown) date) 12/01/22] unknown) (unknown) (no (unknown) (unknown) atorvastatin 10 (units (unknown) date) mg tablet unknown) (Lipitor) 10 mg PO HS #90 tabs 08/26/22 [Rx Confirmed (unknown) (no (unknown) (unknown) chronic (units (unkno wn) date) conditions/update unknown) medications. She has not had any recent lab work. (unknown) (no (unknown) (unknown) fairly healthy (units (unknown) date) diet overall. She unknown) underwent cataract surgery bilaterally over (unknown) (no (unknown) (unknown) fit test. She has (units (unknown) date) a history of unknown) osteopenia, last DEXA was in 2018. (unknown) (no (unknown) (unknown) has a gentleman (units (unknown) date) friend. unknown) (unknown) (no (unknown) (unknown) have occurred. If (units (unknown) date) there are any unknown) questions, please contact the Medical Records (unknown) (no (unknown) (unknown) her yd and doing (units (unknown) date) a lot of walking unknown) in the park. She reports that she eats a (unknown) (no (unknown) (unknown) knee pain has (units ( unknown) date) been better d/t unknown) collagen supplement. (unknown) (no (unknown) (unknown) levothyroxine 112 (units (unknown) date) mcg tablet unknown) (Synthroid) See Rx Instructions .Route .COMPLEX #90 (unknown) (no (unknown) (unknown) lisinopril 10 mg (units (unknown) date) tablet See Rx unknown) Instructions .Route .COMPLEX #90 tabs 11/17/22 (unknown) (no (unknown) (unknown) may occur. (units (unk nown) date) Occasional unknown) wrong-word or 'sound-alike' substitutions may have (unknown) (no (unknown) (unknown) new puppy (units (unkn own) date) dachsund. walking unknown) a lot on beach. (unknown) (no (unknown) (unknown) occasionally; she (units (unknown) date) uses a THC balm as unknown) needed which helps this. (unknown) (no (unknown) (unknown) occurred due to (units (unknown) date) the inherent unknown) limitations of voice recognition software. Please (unknown) (no (unknown) (unknown) penicillin G (units (u nknown) date) [PENICILLIN G] unknown) Allergy (Unknown, Verified 12/01/22 11:12) (unknown) (no (unknown) (unknown) read the note (units ( unknown) date) carefully and unknown) recognize, using context, where these substitutions (unknown) (no (unknown) (unknown) software. 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 Her left knee pain returns (unknown) (no (unknown) (unknown) triamterene 75 (units (unknown) date) mg-hydrochlorothia unknown) zide 50 mg tablet See Rx Instructions .Route (unknown) (no (unknown) (unknown) vaccine. (units (unkno wn) date) unknown) (unknown) (no (unknown) (unknown) varicella-zoster (units (unknown) date) glycoE vacc-AS01B unknown) adj(PF) 50 mcg/0.5 mL IM susp, kit (Shingrix (unknown) (no (unknown) (unknown) were stable and (units (unknown) date) we maintained her unknown) regimen as it was. Result panel 31 (unknown) (no (unknown) (unknown) (no value) (units (unk nown) date) unknown) (unknown) (no (unknown) (unknown) (PF)) 0.5 ml IM (units (unknown) date) ONCE #1 ea unknown) 11/26/21 [Rx Confirmed 12/01/22] (unknown) (no (unknown) (unknown) .COMPLEX #90 tabs (units (unknown) date) 08/26/22 [Rx unknown) Confirmed 12/01/22] (unknown) (no (unknown) (unknown) [id number] (units (unkn own) date) unknown) (unknown) (no (unknown) (unknown) 12/01/22 (units (unkno wn) date) unknown) (unknown) (no (unknown) (unknown) 12/01/22] (units (unkn own) date) unknown) (unknown) (no (unknown) (unknown) 11:13 (units (unkno wn) date) unknown) (unknown) (no (unknown) (unknown) 72 yo female (units (u nknown) date) presents today for unknown) annual Medical Wellness. (unknown) (no (unknown) (unknown) 72-year-old (units (un known) date) female presents unknown) for annual visit to follow-up on lab work and (unknown) (no (unknown) (unknown) Age/Sex: 72 / F (units (unknown) date) Date of Service: unknown) (unknown) (no (unknown) (unknown) Allergies (units (unkn own) date) unknown) (unknown) (no (unknown) (unknown) [place], [place] (units ( unknown) date) [id number] unknown) (unknown) (no (unknown) (unknown) Anesthesia (units (unk nown) date) unknown) (unknown) (no (unknown) (unknown) Asthma (units (unkno wn) date) unknown) (unknown) (no (unknown) (unknown) Attending Dr: (units ( unknown) date) Kareem ERIC unknown) (unknown) (no (unknown) (unknown) BMI 22.8 (units (unkno wn) date) unknown) (unknown) (no (unknown) (unknown) BP 120/80 (units (unkn own) date) unknown) (unknown) (no (unknown) (unknown) Blood Pressure (units (unknown) date) Location Lt unknown) brachial (unknown) (no (unknown) (unknown) Brother Age: 64 (units (unknown) date) Hypertension unknown) (unknown) (no (unknown) (unknown) Brother Age: 69 (units (unknown) date) Alcoholic unknown) (unknown) (no (unknown) (unknown) Chicken pox (units (un known) date) (-1959) unknown) (unknown) (no (unknown) (unknown) Chief Complaint (units (unknown) date) unknown) (unknown) (no (unknown) (unknown) Chief Complaint: (units (unknown) date) Follow-up lab unknown) work/chronic conditions (unknown) (no (unknown) (unknown) : 1950 (units (unknown) date) Acct:[id number] unknown) (unknown) (no (unknown) (unknown) DONE ORDERED (units (unknown) date) LAST YEAR. unknown) (unknown) (no (unknown) (unknown) DUE FOR MAMMOGRAM (units (unknown) date) AND COLORECTAL unknown) CANCER SCREENING. SHE NEVER GOT HER DEXA SCAN (unknown) (no (unknown) (unknown) Dept at (units (unkno wn) date) . unknown) (unknown) (no (unknown) (unknown) Details: (units (unkno wn) date) unknown) (unknown) (no (unknown) (unknown) Documented By: (units (unknown) date) Kareem Sanchez unknown) 12/01/22 0743 (unknown) (no (unknown) (unknown) Draft (units (unkno wn) date) unknown) (unknown) (no (unknown) (unknown) Dyslipidemia (units (u nknown) date) unknown) (unknown) (no (unknown) (unknown) Family History (units (unknown) date) (Reviewed 11/26/21 unknown) @ 10:48 by JEANETH Calvin) (unknown) (no (unknown) (unknown) Family Practice (units (unknown) date) Office Visit unknown) (unknown) (no (unknown) (unknown) Father (units (unknown) date) Cancer unknown) (unknown) (no (unknown) (unknown) [facility]) (unknown) (no (unknown) (unknown) Fractures (units (unkn own) date) unknown) (unknown) (no (unknown) (unknown) GI UPSET (units (unkno wn) date) unknown) (unknown) (no (unknown) (unknown) Grandfather (units (un known) date) Heart unknown) disease (unknown) (no (unknown) (unknown) Grandmother (units (un known) date) Heart unknown) disease (unknown) (no (unknown) (unknown) HPI (units (unkno wn) date) unknown) (unknown) (no (unknown) (unknown) Heart disease (units ( unknown) date) unknown) (unknown) (no (unknown) (unknown) Height 168.91 cm (units (unknown) date) unknown) (unknown) (no (unknown) (unknown) High cholesterol (units (unknown) date) unknown) (unknown) (no (unknown) (unknown) History of (units (unk nown) date) tonsillectomy unknown) (-1953) (unknown) (no (unknown) (unknown) Hyperlipidemia (units (unknown) date) unknown) (unknown) (no (unknown) (unknown) Hypertension (units (u nknown) date) () unknown) (unknown) (no (unknown) (unknown) Hypertension (units (u nknown) date) unknown) (unknown) (no (unknown) (unknown) Hyperthyroidism (units (unknown) date) unknown) (unknown) (no (unknown) (unknown) Hypochondria (units (u nknown) date) unknown) (unknown) (no (unknown) (unknown) Intake Note: (units (u nknown) date) unknown) (unknown) (no (unknown) (unknown) Intake performed (units (unknown) date) by: Sara Meyer unknown) (unknown) (no (unknown) (unknown) Intake (units (unkno wn) date) unknown) (unknown) (no (unknown) (unknown) Intake- Clincial (units (unknown) date) Staff unknown) (unknown) (no (unknown) (unknown) Last Menstural (units (unknown) date) Cycle + Details unknown) (unknown) (no (unknown) (unknown) Loc: [facility] (units (unkno wn) date) unknown) (unknown) (no (unknown) (unknown) [facility] (-1960) (units (unknown) date) unknown) (unknown) (no (unknown) (unknown) Medical History (units (unknown) date) (Updated 11/26/21 unknown) @ 10:52 by JEANETH Calvin) (unknown) (no (unknown) (unknown) Medications (units (un known) date) unknown) (unknown) (no (unknown) (unknown) Mother (units (unknown) date) Diabetes mellitus unknown) (unknown) (no (unknown) (unknown) Osteopenia (units (unk nown) date) unknown) (unknown) (no (unknown) (unknown) Osteoporosis (units (u nknown) date) () unknown) (unknown) (no (unknown) (unknown) Other Menstrual (units (unknown) date) Period: unknown) Postmenopausal (unknown) (no (unknown) (unknown) Ovarian cyst (units (u nknown) date) () unknown) (unknown) (no (unknown) (unknown) Oxygen Delivery (units (unknown) date) Method room air unknown) (unknown) (no (unknown) (unknown) PFSH (units (unkno wn) date) unknown) (unknown) (no (unknown) (unknown) Patient completed (units (unknown) date) COVID-19 vaccine unknown) series and booster as well as her yearly flu (unknown) (no (unknown) (unknown) Patient is (units (unk nown) date) up-to-date on unknown) mammogram. She declines colonoscopy but does agree to (unknown) (no (unknown) (unknown) Patient reports (units (unknown) date) that she has been unknown) doing well. She is staying active working in (unknown) (no (unknown) (unknown) Patient: (units (unkno wn) date) Ela Ramírez L unknown) MR#: M (unknown) (no (unknown) (unknown) Position Sitting (units (unknown) date) unknown) (unknown) (no (unknown) (unknown) Pulse 66 (units (unkno wn) date) unknown) (unknown) (no (unknown) (unknown) Pulse Oximetry (units (unknown) date) (%) 99 unknown) (unknown) (no (unknown) (unknown) Pulse Source (units (u nknown) date) Monitor unknown) (unknown) (no (unknown) (unknown) Reason For Visit (units (unknown) date) unknown) (unknown) (no (unknown) (unknown) Respiration 16 (units (unknown) date) unknown) (unknown) (no (unknown) (unknown) Signed By: (units (unk nown) date) unknown) (unknown) (no (unknown) (unknown) Sister Age: 54 (units (unknown) date) History of unknown) hysterectomy (unknown) (no (unknown) (unknown) Sister Age: 65 (units (unknown) date) History of unknown) hysterectomy (unknown) (no (unknown) (unknown) Smoking Status: (units (unknown) date) Never smoker unknown) (unknown) (no (unknown) (unknown) Status post knee (units (unknown) date) surgery (02/22/06) unknown) (unknown) (no (unknown) (unknown) Status post knee (units (unknown) date) surgery (10/07/07) unknown) (unknown) (no (unknown) (unknown) Status post (units (un known) date) ovarian cystectomy unknown) (-1974) (unknown) (no (unknown) (unknown) Status post tubal (units (unknown) date) ligation () unknown) (unknown) (no (unknown) (unknown) Stroke (units (unkno wn) date) unknown) (unknown) (no (unknown) (unknown) Surgical History (units (unknown) date) (Reviewed 11/26/21 unknown) @ 10:48 by JEANETH Calvin) (unknown) (no (unknown) (unknown) This note may (units ( unknown) date) have been all or unknown) partially generated using voice recognition (unknown) (no (unknown) (unknown) Tinnitus (-2012) (units (unknown) date) unknown) (unknown) (no (unknown) (unknown) Tobacco + (units (unkn own) date) Substance Use unknown) (unknown) (no (unknown) (unknown) Tobacco Status (units (unknown) date) unknown) (unknown) (no (unknown) (unknown) Visit Reasons: (units (unknown) date) Annual physical unknown) (unknown) (no (unknown) (unknown) Vitals (units (unkno wn) date) unknown) (unknown) (no (unknown) (unknown) We saw the (units (unk nown) date) patient last about unknown) 1 year ago. At that time labs and blood pressure (unknown) (no (unknown) (unknown) Weight 65.317 kg (units (unknown) date) unknown) (unknown) (no (unknown) (unknown) [Rx Confirmed (units ( unknown) date) 12/01/22] unknown) (unknown) (no (unknown) (unknown) atorvastatin 10 (units (unknown) date) mg tablet unknown) (Lipitor) 10 mg PO HS #90 tabs 08/26/22 [Rx Confirmed (unknown) (no (unknown) (unknown) chronic (units (unkno wn) date) conditions/update unknown) medications. She has not had any recent lab work. (unknown) (no (unknown) (unknown) fairly healthy (units (unknown) date) diet overall. She unknown) underwent cataract surgery bilaterally over (unknown) (no (unknown) (unknown) fit test. She has (units (unknown) date) a history of unknown) osteopenia, last DEXA was in 2018. (unknown) (no (unknown) (unknown) has a gentleman (units (unknown) date) friend. unknown) (unknown) (no (unknown) (unknown) have occurred. If (units (unknown) date) there are any unknown) questions, please contact the Medical Records (unknown) (no (unknown) (unknown) her yd and doing (units (unknown) date) a lot of walking unknown) in the park. She reports that she eats a (unknown) (no (unknown) (unknown) knee pain has (units ( unknown) date) been better d/t unknown) collagen supplement. (unknown) (no (unknown) (unknown) labs reviewed, NO (units (unknown) date) changes needed. unknown) (unknown) (no (unknown) (unknown) levothyroxine 112 (units (unknown) date) mcg tablet unknown) (Synthroid) See Rx Instructions .Route .COMPLEX #90 (unknown) (no (unknown) (unknown) lisinopril 10 mg (units (unknown) date) tablet See Rx unknown) Instructions .Route .COMPLEX #90 tabs 11/17/22 (unknown) (no (unknown) (unknown) may occur. (units (unk nown) date) Occasional unknown) wrong-word or 'sound-alike' substitutions may have (unknown) (no (unknown) (unknown) new puppy (units (unkn own) date) dachsund. walking unknown) [place]. (unknown) (no (unknown) (unknown) occasionally; she (units (unknown) date) uses a THC balm as unknown) needed which helps this. (unknown) (no (unknown) (unknown) occurred due to (units (unknown) date) the inherent unknown) limitations of voice recognition software. Please (unknown) (no (unknown) (unknown) penicillin G (units (u nknown) date) [PENICILLIN G] unknown) Allergy (Unknown, Verified 12/01/22 11:12) (unknown) (no (unknown) (unknown) read the note (units ( unknown) date) carefully and unknown) recognize, using context, where these substitutions (unknown) (no (unknown) (unknown) software. 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 Her left knee pain returns (unknown) (no (unknown) (unknown) triamterene 75 (units (unknown) date) mg-hydrochlorothia unknown) zide 50 mg tablet See Rx Instructions .Route (unknown) (no (unknown) (unknown) vaccine. (units (unkno wn) date) unknown) (unknown) (no (unknown) (unknown) varicella-zoster (units (unknown) date) glycoE vacc-AS01B unknown) adj(PF) 50 mcg/0.5 mL IM susp, kit (Shingrix (unknown) (no (unknown) (unknown) were stable and (units (unknown) date) we maintained her unknown) regimen as it was. Result panel 32 (unknown) (no (unknown) (unknown) (no value) (units (unk nown) date) unknown) (unknown) (no (unknown) (unknown) (PF)) 0.5 ml IM (units (unknown) date) ONCE #1 ea unknown) 11/26/21 [Rx Confirmed 12/01/22] (unknown) (no (unknown) (unknown) .COMPLEX #90 tabs (units (unknown) date) 12/01/22 [Rx unknown) Confirmed 12/01/22] (unknown) (no (unknown) (unknown) [id number] (units (unkn own) date) unknown) (unknown) (no (unknown) (unknown) 12/01/22 (units (unkno wn) date) unknown) (unknown) (no (unknown) (unknown) 12/01/22] (units (unkn own) date) unknown) (unknown) (no (unknown) (unknown) 11:13 (units (unkno wn) date) unknown) (unknown) (no (unknown) (unknown) 72 yo female (units (u nknown) date) presents today for unknown) annual Medical Wellness. (unknown) (no (unknown) (unknown) 72-year-old (units (un known) date) female presents unknown) for annual visit to follow-up on lab work and (unknown) (no (unknown) (unknown) Age/Sex: 72 / F (units (unknown) date) Date of Service: unknown) (unknown) (no (unknown) (unknown) Allergies (units (unkn own) date) unknown) (unknown) (no (unknown) (unknown) IFEANYI [place]aur (units ( unknown) date) [id number] unknown) (unknown) (no (unknown) (unknown) Anesthesia (units (unk nown) date) unknown) (unknown) (no (unknown) (unknown) Assessment + Plan (units (unknown) date) unknown) (unknown) (no (unknown) (unknown) Asthma (units (unkno wn) date) unknown) (unknown) (no (unknown) (unknown) Attending Dr: (units ( unknown) date) Kareem ERIC unknown) (unknown) (no (unknown) (unknown) BMI 22.8 (units (unkno wn) date) unknown) (unknown) (no (unknown) (unknown) BP 120/80 (units (unkn own) date) unknown) (unknown) (no (unknown) (unknown) Blood Pressure (units (unknown) date) Location Lt unknown) brachial (unknown) (no (unknown) (unknown) Brother Age: 64 (units (unknown) date) Hypertension unknown) (unknown) (no (unknown) (unknown) Brother Age: 69 (units (unknown) date) Alcoholic unknown) (unknown) (no (unknown) (unknown) Changed (units (unkno wn) date) unknown) (unknown) (no (unknown) (unknown) Chicken pox (units (un known) date) (-1959) unknown) (unknown) (no (unknown) (unknown) Chief Complaint (units (unknown) date) unknown) (unknown) (no (unknown) (unknown) Chief Complaint: (units (unknown) date) Follow-up lab unknown) work/chronic conditions (unknown) (no (unknown) (unknown) : 1950 (units (unknown) date) Acct:[id number] unknown) (unknown) (no (unknown) (unknown) DONE ORDERED (units (unknown) date) LAST YEAR. unknown) (unknown) (no (unknown) (unknown) DUE FOR MAMMOGRAM (units (unknown) date) AND COLORECTAL unknown) CANCER SCREENING. SHE NEVER GOT HER DEXA SCAN (unknown) (no (unknown) (unknown) Dept at (units (unkno wn) date) . unknown) (unknown) (no (unknown) (unknown) Details: (units (unkno wn) date) unknown) (unknown) (no (unknown) (unknown) Documented By: (units (unknown) date) Kareem Sanchez unknown) 12/01/22 0743 (unknown) (no (unknown) (unknown) Draft (units (unkno wn) date) unknown) (unknown) (no (unknown) (unknown) Dyslipidemia (units (u nknown) date) unknown) (unknown) (no (unknown) (unknown) Family History (units (unknown) date) (Reviewed 11/26/21 unknown) @ 10:48 by JEANETH Calvin) (unknown) (no (unknown) (unknown) Family Practice (units (unknown) date) Office Visit unknown) (unknown) (no (unknown) (unknown) Father (units (unknown) date) Cancer unknown) (unknown) (no (unknown) (unknown) [facility]) (unknown) (no (unknown) (unknown) Fractures (units (unkn own) date) unknown) (unknown) (no (unknown) (unknown) From lisinopril (units (unknown) date) TAKE 1 TABLET unknown) DAILY 90 tabs 0RF (unknown) (no (unknown) (unknown) GI UPSET (units (unkno wn) date) unknown) (unknown) (no (unknown) (unknown) Grandfather (units (un known) date) Heart unknown) disease (unknown) (no (unknown) (unknown) Grandmother (units (un known) date) Heart unknown) disease (unknown) (no (unknown) (unknown) HPI (units (unkno wn) date) unknown) (unknown) (no (unknown) (unknown) Heart disease (units ( unknown) date) unknown) (unknown) (no (unknown) (unknown) Height 168.91 cm (units (unknown) date) unknown) (unknown) (no (unknown) (unknown) High cholesterol (units (unknown) date) unknown) (unknown) (no (unknown) (unknown) History of (units (unk nown) date) tonsillectomy unknown) (-1953) (unknown) (no (unknown) (unknown) Hyperlipidemia (units (unknown) date) unknown) (unknown) (no (unknown) (unknown) Hypertension (units (u nknown) date) () unknown) (unknown) (no (unknown) (unknown) Hypertension (units (u nknown) date) unknown) (unknown) (no (unknown) (unknown) Hyperthyroidism (units (unknown) date) unknown) (unknown) (no (unknown) (unknown) Hypochondria (units (u nknown) date) unknown) (unknown) (no (unknown) (unknown) Intake Note: (units (u nknown) date) unknown) (unknown) (no (unknown) (unknown) Intake performed (units (unknown) date) by: Sara Meyer unknown) (unknown) (no (unknown) (unknown) Intake (units (unkno wn) date) unknown) (unknown) (no (unknown) (unknown) Intake- Clincial (units (unknown) date) Staff unknown) (unknown) (no (unknown) (unknown) Last Menstural (units (unknown) date) Cycle + Details unknown) (unknown) (no (unknown) (unknown) Loc: [facility] (units (unkno wn) date) unknown) (unknown) (no (unknown) (unknown) [facility] (-1960) (units (unknown) date) unknown) (unknown) (no (unknown) (unknown) Medical History (units (unknown) date) (Updated 11/26/21 unknown) @ 10:52 by JEANETH Calvin) (unknown) (no (unknown) (unknown) Medications (units (un known) date) unknown) (unknown) (no (unknown) (unknown) Medications: (units (u nknown) date) unknown) (unknown) (no (unknown) (unknown) Mother (units (unknown) date) Diabetes mellitus unknown) (unknown) (no (unknown) (unknown) Osteopenia (units (unk nown) date) unknown) (unknown) (no (unknown) (unknown) Osteoporosis (units (u nknown) date) () unknown) (unknown) (no (unknown) (unknown) Other Menstrual (units (unknown) date) Period: unknown) Postmenopausal (unknown) (no (unknown) (unknown) Ovarian cyst (units (u nknown) date) () unknown) (unknown) (no (unknown) (unknown) Oxygen Delivery (units (unknown) date) Method room air unknown) (unknown) (no (unknown) (unknown) PFSH (units (unkno wn) date) unknown) (unknown) (no (unknown) (unknown) Patient completed (units (unknown) date) COVID-19 vaccine unknown) series and booster as well as her yearly flu (unknown) (no (unknown) (unknown) Patient is (units (unk nown) date) up-to-date on unknown) mammogram. She declines colonoscopy but does agree to (unknown) (no (unknown) (unknown) Patient reports (units (unknown) date) that she has been unknown) doing well. She is staying active working in (unknown) (no (unknown) (unknown) Patient: (units (unkno wn) date) Ela Ramírez unknown) MR#: M (unknown) (no (unknown) (unknown) Position Sitting (units (unknown) date) unknown) (unknown) (no (unknown) (unknown) Pulse 66 (units (unkno wn) date) unknown) (unknown) (no (unknown) (unknown) Pulse Oximetry (units (unknown) date) (%) 99 unknown) (unknown) (no (unknown) (unknown) Pulse Source (units (u nknown) date) Monitor unknown) (unknown) (no (unknown) (unknown) Reason For Visit (units (unknown) date) unknown) (unknown) (no (unknown) (unknown) Refilled (units (unkno wn) date) unknown) (unknown) (no (unknown) (unknown) Respiration 16 (units (unknown) date) unknown) (unknown) (no (unknown) (unknown) Signed By: (units (unk nown) date) unknown) (unknown) (no (unknown) (unknown) Sister Age: 54 (units (unknown) date) History of unknown) hysterectomy (unknown) (no (unknown) (unknown) Sister Age: 65 (units (unknown) date) History of unknown) hysterectomy (unknown) (no (unknown) (unknown) Smoking Status: (units (unknown) date) Never smoker unknown) (unknown) (no (unknown) (unknown) Status post knee (units (unknown) date) surgery (02/22/06) unknown) (unknown) (no (unknown) (unknown) Status post knee (units (unknown) date) surgery (10/07/07) unknown) (unknown) (no (unknown) (unknown) Status post (units (un known) date) ovarian cystectomy unknown) (-1974) (unknown) (no (unknown) (unknown) Status post tubal (units (unknown) date) ligation () unknown) (unknown) (no (unknown) (unknown) Stroke (units (unkno wn) date) unknown) (unknown) (no (unknown) (unknown) Surgical History (units (unknown) date) (Reviewed 11/26/21 unknown) @ 10:48 by JEANETH Calvin) (unknown) (no (unknown) (unknown) This note may (units ( unknown) date) have been all or unknown) partially generated using voice recognition (unknown) (no (unknown) (unknown) Tinnitus (-2011) (units (unknown) date) unknown) (unknown) (no (unknown) (unknown) To lisinopril 10 (units (unknown) date) mg PO DAILY 90 unknown) tabs 3RF (unknown) (no (unknown) (unknown) Tobacco + (units (unkn own) date) Substance Use unknown) (unknown) (no (unknown) (unknown) Tobacco Status (units (unknown) date) unknown) (unknown) (no (unknown) (unknown) Visit Reasons: (units (unknown) date) Annual physical unknown) (unknown) (no (unknown) (unknown) Vitals (units (unkno wn) date) unknown) (unknown) (no (unknown) (unknown) We saw the (units (unk nown) date) patient last about unknown) 1 year ago. At that time labs and blood pressure (unknown) (no (unknown) (unknown) Weight 65.317 kg (units (unknown) date) unknown) (unknown) (no (unknown) (unknown) atorvastatin (units (u nknown) date) (Lipitor) 10 mg PO unknown) HS 90 tabs 3RF (unknown) (no (unknown) (unknown) atorvastatin 10 (units (unknown) date) mg tablet unknown) (Lipitor) 10 mg PO HS #90 tabs 12/01/22 [Rx Confirmed (unknown) (no (unknown) (unknown) chronic (units (unkno wn) date) conditions/update unknown) medications. She has not had any recent lab work. (unknown) (no (unknown) (unknown) fairly healthy (units (unknown) date) diet overall. She unknown) underwent cataract surgery bilaterally over (unknown) (no (unknown) (unknown) fit test. She has (units (unknown) date) a history of unknown) osteopenia, last DEXA was in 2018. (unknown) (no (unknown) (unknown) has a gentleman (units (unknown) date) friend. unknown) (unknown) (no (unknown) (unknown) have occurred. If (units (unknown) date) there are any unknown) questions, please contact the Medical Records (unknown) (no (unknown) (unknown) her yd and doing (units (unknown) date) a lot of walking unknown) in the park. She reports that she eats a (unknown) (no (unknown) (unknown) knee pain has (units ( unknown) date) been better d/t unknown) collagen supplement. (unknown) (no (unknown) (unknown) labs reviewed, NO (units (unknown) date) changes needed. unknown) (unknown) (no (unknown) (unknown) levothyroxine (units ( unknown) date) (Synthroid) TAKE 1 unknown) TABLET DAILY 90 tabs 3RF (unknown) (no (unknown) (unknown) levothyroxine 112 (units (unknown) date) mcg tablet unknown) (Synthroid) See Rx Instructions .Route .COMPLEX #90 (unknown) (no (unknown) (unknown) lisinopril 10 mg (units (unknown) date) tablet 10 mg PO unknown) DAILY #90 tabs 12/01/22 [Rx Confirmed 12/01/22] (unknown) (no (unknown) (unknown) may occur. (units (unk nown) date) Occasional unknown) wrong-word or 'sound-alike' substitutions may have (unknown) (no (unknown) (unknown) new puppy (units (unkn own) date) dachsund. walking unknown) [place] lot on beach. (unknown) (no (unknown) (unknown) occasionally; she (units (unknown) date) uses a THC balm as unknown) needed which helps this. (unknown) (no (unknown) (unknown) occurred due to (units (unknown) date) the inherent unknown) limitations of voice recognition software. Please (unknown) (no (unknown) (unknown) penicillin G (units (u nknown) date) [PENICILLIN G] unknown) Allergy (Unknown, Verified 12/01/22 11:12) (unknown) (no (unknown) (unknown) read the note (units ( unknown) date) carefully and unknown) recognize, using context, where these substitutions (unknown) (no (unknown) (unknown) software. (units (unkn own) date) Although every unknown) effort is made to edit content, boiler/chiller operator errors (unknown) (no (unknown) (unknown) tabs 12/01/22 [Rx (units (unknown) date) Confirmed unknown) 12/01/22] (unknown) (no (unknown) (unknown) the summer and (units (unknown) date) states that this unknown) went well. Her left knee pain returns (unknown) (no (unknown) (unknown) triamterene 75 (units (unknown) date) mg-hydrochlorothia unknown) zide 50 mg tablet See Rx Instructions .Route (unknown) (no (unknown) (unknown) triamterene-hydro (units (unknown) date) chlorothiazid unknown) 75-50 mg TAKE 1 TABLET DAILY 90 tabs 3RF (unknown) (no (unknown) (unknown) vaccine. (units (unkno wn) date) unknown) (unknown) (no (unknown) (unknown) varicella-zoster (units (unknown) date) glycoE vacc-AS01B unknown) adj(PF) 50 mcg/0.5 mL IM susp, kit (Shingrix (unknown) (no (unknown) (unknown) were stable and (units (unknown) date) we maintained her unknown) regimen as it was. Result panel 33 (unknown) (no (unknown) (unknown) (no value) (units (unk nown) date) unknown) (unknown) (no (unknown) (unknown) (1) Osteopenia: (units (unknown) date) unknown) (unknown) (no (unknown) (unknown) (2) Colon cancer (units (unknown) date) screening: unknown) (unknown) (no (unknown) (unknown) (3) Dyslipidemia: (units (unknown) date) unknown) (unknown) (no (unknown) (unknown) (4) (units (unkno wn) date) Hypothyroidism: unknown) (unknown) (no (unknown) (unknown) (5) Essential (units ( unknown) date) hypertension: unknown) (unknown) (no (unknown) (unknown) (PF)) 0.5 ml IM (units (unknown) date) ONCE #1 ea unknown) 11/26/21 [Rx Confirmed 12/01/22] (unknown) (no (unknown) (unknown) .COMPLEX #90 tabs (units (unknown) date) 12/01/22 [Rx unknown) Confirmed 12/01/22] (unknown) (no (unknown) (unknown) [id number] (units (unkn own) date) unknown) (unknown) (no (unknown) (unknown) 12/01/22 (units (unkno wn) date) unknown) (unknown) (no (unknown) (unknown) 12/01/22] (units (unkn own) date) unknown) (unknown) (no (unknown) (unknown) 11:13 (units (unkno wn) date) unknown) (unknown) (no (unknown) (unknown) 72 yo female (units (u nknown) date) presents today for unknown) annual Medical Wellness. (unknown) (no (unknown) (unknown) 72-year-old (units (un known) date) female presents unknown) for annual visit to follow-up on lab work and (unknown) (no (unknown) (unknown) Age/Sex: 72 / F (units (unknown) date) Date of Service: unknown) (unknown) (no (unknown) (unknown) Allergies (units (unkn own) date) unknown) (unknown) (no (unknown) (unknown) [place] (units ( unknown) date) [id number] unknown) (unknown) (no (unknown) (unknown) Anesthesia (units (unk nown) date) unknown) (unknown) (no (unknown) (unknown) Assessment + Plan (units (unknown) date) unknown) (unknown) (no (unknown) (unknown) Asthma (units (unkno wn) date) unknown) (unknown) (no (unknown) (unknown) Attending Dr: (units ( unknown) date) Kareem ERIC unknown) (unknown) (no (unknown) (unknown) BMI 22.8 (units (unkno wn) date) unknown) (unknown) (no (unknown) (unknown) BP 120/80 (units (unkn own) date) unknown) (unknown) (no (unknown) (unknown) Blood Pressure (units (unknown) date) Location Lt unknown) brachial (unknown) (no (unknown) (unknown) Brother Age: 64 (units (unknown) date) Hypertension unknown) (unknown) (no (unknown) (unknown) Brother Age: 69 (units (unknown) date) Alcoholic unknown) (unknown) (no (unknown) (unknown) Changed (units (unkno wn) date) unknown) (unknown) (no (unknown) (unknown) Chicken pox (units (un known) date) (-1960) unknown) (unknown) (no (unknown) (unknown) Chief Complaint (units (unknown) date) unknown) (unknown) (no (unknown) (unknown) Chief Complaint: (units (unknown) date) Follow-up lab unknown) work/chronic conditions (unknown) (no (unknown) (unknown) : 1950 (units (unknown) date) Acct:[id number] unknown) (unknown) (no (unknown) (unknown) DONE ORDERED (units (unknown) date) LAST YEAR. unknown) (unknown) (no (unknown) (unknown) DUE FOR MAMMOGRAM (units (unknown) date) AND COLORECTAL unknown) CANCER SCREENING. SHE NEVER GOT HER DEXA SCAN (unknown) (no (unknown) (unknown) Dept at (units (unkno wn) date) . unknown) (unknown) (no (unknown) (unknown) Details: (units (unkno wn) date) unknown) (unknown) (no (unknown) (unknown) Documented By: (units (unknown) date) Kareem Sanchez unknown) 12/01/22 0743 (unknown) (no (unknown) (unknown) Draft (units (unkno wn) date) unknown) (unknown) (no (unknown) (unknown) Dyslipidemia (units (u nknown) date) unknown) (unknown) (no (unknown) (unknown) Dyslipidemia: (units ( unknown) date) Lipid profile unknown) favorable. Continue regimen and lifestyle (unknown) (no (unknown) (unknown) Family History (units (unknown) date) (Reviewed 11/26/21 unknown) @ 10:48 by JEANETH Calvin) (unknown) (no (unknown) (unknown) Family Practice (units (unknown) date) Office Visit unknown) (unknown) (no (unknown) (unknown) Father (units (unknown) date) Cancer unknown) (unknown) (no (unknown) (unknown) Fecal (units (unkno wn) date) Immunochemical unknown) Test 1 Week Z12.11 - Encounter for screening for malignant (unknown) (no (unknown) (unknown) [facility] unknown) (unknown) (no (unknown) (unknown) Fit test ordered (units (unknown) date) for colon cancer unknown) screening. Shingrix vaccine ordered. Patient (unknown) (no (unknown) (unknown) Fractures (units (unkn own) date) unknown) (unknown) (no (unknown) (unknown) From lisinopril (units (unknown) date) TAKE 1 TABLET unknown) DAILY 90 tabs 0RF (unknown) (no (unknown) (unknown) GI UPSET (units (unkno wn) date) unknown) (unknown) (no (unknown) (unknown) Grandfather (units (un known) date) Heart unknown) disease (unknown) (no (unknown) (unknown) Grandmother (units (un known) date) Heart unknown) disease (unknown) (no (unknown) (unknown) HPI (units (unkno wn) date) unknown) (unknown) (no (unknown) (unknown) Heart disease (units ( unknown) date) unknown) (unknown) (no (unknown) (unknown) Height 168.91 cm (units (unknown) date) unknown) (unknown) (no (unknown) (unknown) High cholesterol (units (unknown) date) unknown) (unknown) (no (unknown) (unknown) History of (units (unk nown) date) tonsillectomy unknown) (-1953) (unknown) (no (unknown) (unknown) Hyperlipidemia (units (unknown) date) unknown) (unknown) (no (unknown) (unknown) Hypertension (units (u nknown) date) () unknown) (unknown) (no (unknown) (unknown) Hypertension (units (u nknown) date) unknown) (unknown) (no (unknown) (unknown) Hypertension: (units ( unknown) date) Blood pressure unknown) excellent. Medication well tolerated. Continue (unknown) (no (unknown) (unknown) Hyperthyroidism (units (unknown) date) unknown) (unknown) (no (unknown) (unknown) Hypochondria (units (u nknown) date) unknown) (unknown) (no (unknown) (unknown) Hypothyroidism (units (unknown) date) type: unspecified unknown) Qualified Code(s): E03.9 (unknown) (no (unknown) (unknown) Hypothyroidism, (units (unknown) date) unspecified unknown) (unknown) (no (unknown) (unknown) Hypothyroidism: (units (unknown) date) TSH within normal unknown) limits. Continue current regimen. (unknown) (no (unknown) (unknown) Intake Note: (units (u nknown) date) unknown) (unknown) (no (unknown) (unknown) Intake performed (units (unknown) date) by: Sara Meyer unknown) (unknown) (no (unknown) (unknown) Intake (units (unkno wn) date) unknown) (unknown) (no (unknown) (unknown) Intake- Clincial (units (unknown) date) Staff unknown) (unknown) (no (unknown) (unknown) Lab work (units (unkno wn) date) otherwise unknown) unremarkable. Next routine lab work due in 1 year, fasting (unknown) (no (unknown) (unknown) Last Menstural (units (unknown) date) Cycle + Details unknown) (unknown) (no (unknown) (unknown) Loc: [facility] (units (unkno wn) date) unknown) (unknown) (no (unknown) (unknown) [place] (-1960) (units (unknown) date) unknown) (unknown) (no (unknown) (unknown) Medical History (units (unknown) date) (Updated 11/26/21 unknown) @ 10:52 by JEANETH Calvin) (unknown) (no (unknown) (unknown) Medications (units (un known) date) unknown) (unknown) (no (unknown) (unknown) Medications: (units (u nknown) date) unknown) (unknown) (no (unknown) (unknown) Mother (units (unknown) date) Diabetes mellitus unknown) (unknown) (no (unknown) (unknown) Orders (units (unkno wn) date) unknown) (unknown) (no (unknown) (unknown) Orders: (units (unkno wn) date) unknown) (unknown) (no (unknown) (unknown) Osteopenia (units (unk nown) date) location: unknown) unspecified Qualified Code(s): M85.80 - Other (unknown) (no (unknown) (unknown) Osteopenia (units (unk nown) date) unknown) (unknown) (no (unknown) (unknown) Osteopenia: We (units (unknown) date) will get updated unknown) DEXA scan. Will contact her with results and (unknown) (no (unknown) (unknown) Osteoporosis (units (u nknown) date) () unknown) (unknown) (no (unknown) (unknown) Other Menstrual (units (unknown) date) Period: unknown) Postmenopausal (unknown) (no (unknown) (unknown) Ovarian cyst (units (u nknown) date) () unknown) (unknown) (no (unknown) (unknown) Oxygen Delivery (units (unknown) date) Method room air unknown) (unknown) (no (unknown) (unknown) PFSH (units (unkno wn) date) unknown) (unknown) (no (unknown) (unknown) Patient completed (units (unknown) date) COVID-19 vaccine unknown) series and booster as well as her yearly flu (unknown) (no (unknown) (unknown) Patient is (units (unk n) date) up-to-date on unknown) mammogram. She declines colonoscopy but does agree to (unknown) (no (unknown) (unknown) Patient reports (units (unknown) date) that she has been unknown) doing well. She is staying active working in (unknown) (no (unknown) (unknown) Patient will (units (u nknown) date) schedule a visit unknown) for review of lab work, focused physical exam as (unknown) (no (unknown) (unknown) Patient: (units (o wn) date) Ela Ramírez unknown) MR#: [id number] (unknown) (no (unknown) (unknown) Plan (units (unkno wn) date) unknown) (unknown) (no (unknown) (unknown) Position Sitting (units (unknown) date) unknown) (unknown) (no (unknown) (unknown) Pulse 66 (units (unkno wn) date) unknown) (unknown) (no (unknown) (unknown) Pulse Oximetry (units (unknown) date) (%) 99 unknown) (unknown) (no (unknown) (unknown) Pulse Source (units (u nknown) date) Monitor unknown) (unknown) (no (unknown) (unknown) Qualifiers: (units (un known) date) unknown) (unknown) (no (unknown) (unknown) Reason For Visit (units (unknown) date) unknown) (unknown) (no (unknown) (unknown) Refilled (units (unkno wn) date) unknown) (unknown) (no (unknown) (unknown) Respiration 16 (units (unknown) date) unknown) (unknown) (no (unknown) (unknown) Signed By: (units (unk nown) date) unknown) (unknown) (no (unknown) (unknown) Sister Age: 54 (units (unknown) date) History of unknown) hysterectomy (unknown) (no (unknown) (unknown) Sister Age: 65 (units (unknown) date) History of unknown) hysterectomy (unknown) (no (unknown) (unknown) Smoking Status: (units (unknown) date) Never smoker unknown) (unknown) (no (unknown) (unknown) Status post knee (units (unknown) date) surgery (02/22/06) unknown) (unknown) (no (unknown) (unknown) Status post knee (units (unknown) date) surgery (10/07/07) unknown) (unknown) (no (unknown) (unknown) Status post (units (un known) date) ovarian cystectomy unknown) (-1974) (unknown) (no (unknown) (unknown) Status post tubal (units (unknown) date) ligation () unknown) (unknown) (no (unknown) (unknown) Status: Acute (units ( unknown) date) unknown) (unknown) (no (unknown) (unknown) Status: None (units (u nknown) date) unknown) (unknown) (no (unknown) (unknown) Stroke (units (unkno wn) date) unknown) (unknown) (no (unknown) (unknown) Surgical History (units (unknown) date) (Reviewed 11/26/21 unknown) @ 10:48 by JEANETH Calvin) (unknown) (no (unknown) (unknown) This note may (units ( unknown) date) have been all or unknown) partially generated using voice recognition (unknown) (no (unknown) (unknown) Tinnitus (-2011) (units (unknown) date) unknown) (unknown) (no (unknown) (unknown) To lisinopril 10 (units (unknown) date) mg PO DAILY 90 unknown) tabs 3RF (unknown) (no (unknown) (unknown) Tobacco + (units (unkn own) date) Substance Use unknown) (unknown) (no (unknown) (unknown) Tobacco Status (units (unknown) date) unknown) (unknown) (no (unknown) (unknown) Visit Reasons: (units (unknown) date) Annual physical unknown) (unknown) (no (unknown) (unknown) Vitals (units (unkno wn) date) unknown) (unknown) (no (unknown) (unknown) We saw the (units (unk nown) date) patient last about unknown) 1 year ago. At that time labs and blood pressure (unknown) (no (unknown) (unknown) Weight 65.317 kg (units (unknown) date) unknown) (unknown) (no (unknown) (unknown) XR DEXA axial (units (u nknown) date) skeleton 1 Week unknown) M85.80 - Other specified disorders of bone density (unknown) (no (unknown) (unknown) and structure, (units (unknown) date) unspecified site unknown) (unknown) (no (unknown) (unknown) appropriate, and (units (unknown) date) follow-up on unknown) chronic conditions/medicat ion review shortly after (unknown) (no (unknown) (unknown) atorvastatin (units (u nknown) date) (Lipitor) 10 mg PO unknown) HS 90 tabs 3RF (unknown) (no (unknown) (unknown) atorvastatin 10 (units (unknown) date) mg tablet unknown) (Lipitor) 10 mg PO HS #90 tabs 12/01/22 [Rx Confirmed (unknown) (no (unknown) (unknown) chronic (units (unkno wn) date) conditions/update unknown) medications. She has not had any recent lab work. (unknown) (no (unknown) (unknown) does not want (units ( unknown) date) shingrix. unknown) (unknown) (no (unknown) (unknown) fairly healthy (units (unknown) date) diet overall. She unknown) underwent cataract surgery bilaterally over (unknown) (no (unknown) (unknown) fit test. She has (units (unknown) date) a history of unknown) osteopenia, last DEXA was in 2018. (unknown) (no (unknown) (unknown) has a gentleman (units (unknown) date) friend. unknown) (unknown) (no (unknown) (unknown) has had Pneumovax (units (unknown) date) 13 and Pneumovax unknown) 23 vaccines completed. (unknown) (no (unknown) (unknown) have occurred. If (units (unknown) date) there are any unknown) questions, please contact the Medical Records (unknown) (no (unknown) (unknown) her yd and doing (units (unknown) date) a lot of walking unknown) in the park. She reports that she eats a (unknown) (no (unknown) (unknown) knee pain has (units ( unknown) date) been better d/t unknown) collagen supplement. (unknown) (no (unknown) (unknown) lab work is done. (units (unknown) date) unknown) (unknown) (no (unknown) (unknown) labs reviewed, NO (units (unknown) date) changes needed. unknown) (unknown) (no (unknown) (unknown) labs which will (units (unknown) date) be: CBC with no unknown) diff, TSH with reflex free T4, lipids, CMP. (unknown) (no (unknown) (unknown) levothyroxine (units ( unknown) date) (Synthroid) TAKE 1 unknown) TABLET DAILY 90 tabs 3RF (unknown) (no (unknown) (unknown) levothyroxine 112 (units (unknown) date) mcg tablet unknown) (Synthroid) See Rx Instructions .Route .COMPLEX #90 (unknown) (no (unknown) (unknown) lisinopril 10 mg (units (unknown) date) tablet 10 mg PO unknown) DAILY #90 tabs 12/01/22 [Rx Confirmed 12/01/22] (unknown) (no (unknown) (unknown) may occur. (units (unk nown) date) Occasional unknown) wrong-word or 'sound-alike' substitutions may have (unknown) (no (unknown) (unknown) measures. (units (unkn own) date) unknown) (unknown) (no (unknown) (unknown) neoplasm of colon (units (unknown) date) unknown) (unknown) (no (unknown) (unknown) new puppy (units (unkn own) date) dachsund. walking unknown) a lot on beach. (unknown) (no (unknown) (unknown) occasionally; she (units (unknown) date) uses a THC balm as unknown) needed which helps this. (unknown) (no (unknown) (unknown) occurred due to (units (unknown) date) the inherent unknown) limitations of voice recognition software. Please (unknown) (no (unknown) (unknown) penicillin G (units (u nknown) date) [PENICILLIN G] unknown) Allergy (Unknown, Verified 12/01/22 11:12) (unknown) (no (unknown) (unknown) read the note (units ( unknown) date) carefully and unknown) recognize, using context, where these substitutions (unknown) (no (unknown) (unknown) recommendations, (units (unknown) date) including unknown) potentially scheduling her for a visit to review (unknown) (no (unknown) (unknown) results in detail (units (unknown) date) if indicated. unknown) (unknown) (no (unknown) (unknown) same. (units (unkno wn) date) unknown) (unknown) (no (unknown) (unknown) software. (units (unkn own) date) Although every unknown) effort is made to edit content, boiler/chiller operator errors (unknown) (no (unknown) (unknown) specified (units (unkn own) date) disorders of bone unknown) density and structure, unspecified site (unknown) (no (unknown) (unknown) tabs 12/01/22 [Rx (units (unknown) date) Confirmed unknown) 12/01/22] (unknown) (no (unknown) (unknown) the summer and (units (unknown) date) states that this unknown) went well. Her left knee pain returns (unknown) (no (unknown) (unknown) triamterene 75 (units (unknown) date) mg-hydrochlorothia unknown) zide 50 mg tablet See Rx Instructions .Route (unknown) (no (unknown) (unknown) triamterene-hydro (units (unknown) date) chlorothiazid unknown) 75-50 mg TAKE 1 TABLET DAILY 90 tabs 3RF (unknown) (no (unknown) (unknown) vaccine. (units (unkno wn) date) unknown) (unknown) (no (unknown) (unknown) varicella-zoster (units (unknown) date) glycoE vacc-AS01B unknown) adj(PF) 50 mcg/0.5 mL IM susp, kit (Shingrix (unknown) (no (unknown) (unknown) were stable and (units (unknown) date) we maintained her unknown) regimen as it was. Result panel 34 (unknown) (no (unknown) (unknown) (no value) (units (unk nown) date) unknown) (unknown) (no (unknown) (unknown) (1) Osteopenia: (units (unknown) date) unknown) (unknown) (no (unknown) (unknown) (2) Colon cancer (units (unknown) date) screening: unknown) (unknown) (no (unknown) (unknown) (3) Dyslipidemia: (units (unknown) date) unknown) (unknown) (no (unknown) (unknown) (4) (units (unkno wn) date) Hypothyroidism: unknown) (unknown) (no (unknown) (unknown) (5) Essential (units ( unknown) date) hypertension: unknown) (unknown) (no (unknown) (unknown) (PF)) 0.5 ml IM (units (unknown) date) ONCE #1 ea unknown) 11/26/21 [Rx Confirmed 12/01/22] (unknown) (no (unknown) (unknown) .COMPLEX #90 tabs (units (unknown) date) 12/01/22 [Rx unknown) Confirmed 12/01/22] (unknown) (no (unknown) (unknown) [id number] (units (unkn own) date) unknown) (unknown) (no (unknown) (unknown) 12/01/22 (units (unkno wn) date) unknown) (unknown) (no (unknown) (unknown) 12/01/22] (units (unkn own) date) unknown) (unknown) (no (unknown) (unknown) 11:13 (units (unkno wn) date) unknown) (unknown) (no (unknown) (unknown) 72 yo female (units (u nknown) date) presents today for unknown) annual Medical Wellness. (unknown) (no (unknown) (unknown) 72-year-old (units (un known) date) female presents unknown) for annual visit to follow-up on lab work and (unknown) (no (unknown) (unknown) Age/Sex: 72 / F (units (unknown) date) Date of Service: unknown) (unknown) (no (unknown) (unknown) Allergies (units (unkn own) date) unknown) (unknown) (no (unknown) (unknown) [place], [place] (units ( unknown) date) [id number] unknown) (unknown) (no (unknown) (unknown) Anesthesia (units (unk nown) date) unknown) (unknown) (no (unknown) (unknown) Assessment + Plan (units (unknown) date) unknown) (unknown) (no (unknown) (unknown) Asthma (units (unkno wn) date) unknown) (unknown) (no (unknown) (unknown) Attending Dr: (units ( unknown) date) Kareem ERIC unknown) (unknown) (no (unknown) (unknown) BMI 22.8 (units (unkno wn) date) unknown) (unknown) (no (unknown) (unknown) BP 120/80 (units (unkn own) date) unknown) (unknown) (no (unknown) (unknown) Blood Pressure (units (unknown) date) Location Lt unknown) brachial (unknown) (no (unknown) (unknown) Brother Age: 64 (units (unknown) date) Hypertension unknown) (unknown) (no (unknown) (unknown) Brother Age: 69 (units (unknown) date) Alcoholic unknown) (unknown) (no (unknown) (unknown) Changed (units (unkno wn) date) unknown) (unknown) (no (unknown) (unknown) Chicken pox (units (un known) date) (-1959) unknown) (unknown) (no (unknown) (unknown) Chief Complaint (units (unknown) date) unknown) (unknown) (no (unknown) (unknown) Chief Complaint: (units (unknown) date) Follow-up lab unknown) work/chronic conditions (unknown) (no (unknown) (unknown) : 1950 (units (unknown) date) Acct:[id number] unknown) (unknown) (no (unknown) (unknown) DONE ORDERED (units (unknown) date) LAST YEAR. unknown) (unknown) (no (unknown) (unknown) DUE FOR MAMMOGRAM (units (unknown) date) AND COLORECTAL unknown) CANCER SCREENING. SHE NEVER GOT HER DEXA SCAN (unknown) (no (unknown) (unknown) Dept at (units (unkno wn) date) . unknown) (unknown) (no (unknown) (unknown) Details: (units (unkno wn) date) unknown) (unknown) (no (unknown) (unknown) Documented By: (units (unknown) date) Kareem Sanchez unknown) 12/01/22 0743 (unknown) (no (unknown) (unknown) Draft (units (unkno wn) date) unknown) (unknown) (no (unknown) (unknown) Dyslipidemia (units (u nknown) date) unknown) (unknown) (no (unknown) (unknown) Dyslipidemia: (units ( unknown) date) Lipid profile unknown) favorable. Continue regimen and lifestyle (unknown) (no (unknown) (unknown) Family History (units (unknown) date) (Reviewed 11/26/21 unknown) @ 10:48 by JEANETH Calvin) (unknown) (no (unknown) (unknown) Family Practice (units (unknown) date) Office Visit unknown) (unknown) (no (unknown) (unknown) Father (units (unknown) date) Cancer unknown) (unknown) (no (unknown) (unknown) Fecal (units (unkno wn) date) Immunochemical unknown) Test 1 Week Z12.11 - Encounter for screening for malignant (unknown) (no (unknown) (unknown) [facility] ([facility] date[facility] unknown) (unknown) (no (unknown) (unknown) Fit test ordered (units (unknown) date) for colon cancer unknown) screening. Shingrix vaccine ordered. Patient (unknown) (no (unknown) (unknown) Fractures (units (unkn own) date) unknown) (unknown) (no (unknown) (unknown) From lisinopril (units (unknown) date) TAKE 1 TABLET unknown) DAILY 90 tabs 0RF (unknown) (no (unknown) (unknown) GI UPSET (units (unkno wn) date) unknown) (unknown) (no (unknown) (unknown) Grandfather (units (un known) date) Heart unknown) disease (unknown) (no (unknown) (unknown) Grandmother (units (un known) date) Heart unknown) disease (unknown) (no (unknown) (unknown) HPI (units (unkno wn) date) unknown) (unknown) (no (unknown) (unknown) Heart disease (units ( unknown) date) unknown) (unknown) (no (unknown) (unknown) Height 168.91 cm (units (unknown) date) unknown) (unknown) (no (unknown) (unknown) High cholesterol (units (unknown) date) unknown) (unknown) (no (unknown) (unknown) History of (units (unk nown) date) tonsillectomy unknown) (-1953) (unknown) (no (unknown) (unknown) Hyperlipidemia (units (unknown) date) unknown) (unknown) (no (unknown) (unknown) Hypertension (units (u nknown) date) () unknown) (unknown) (no (unknown) (unknown) Hypertension (units (u nknown) date) unknown) (unknown) (no (unknown) (unknown) Hypertension: (units ( unknown) date) Blood pressure unknown) excellent. Medication well tolerated. Continue (unknown) (no (unknown) (unknown) Hyperthyroidism (units (unknown) date) unknown) (unknown) (no (unknown) (unknown) Hypochondria (units (u nknown) date) unknown) (unknown) (no (unknown) (unknown) Hypothyroidism (units (unknown) date) type: unspecified unknown) Qualified Code(s): E03.9 (unknown) (no (unknown) (unknown) Hypothyroidism, (units (unknown) date) unspecified unknown) (unknown) (no (unknown) (unknown) Hypothyroidism: (units (unknown) date) TSH within normal unknown) limits. Continue current regimen. (unknown) (no (unknown) (unknown) Intake Note: (units (u nknown) date) unknown) (unknown) (no (unknown) (unknown) Intake performed (units (unknown) date) by: Sara Meyer unknown) (unknown) (no (unknown) (unknown) Intake (units (unkno wn) date) unknown) (unknown) (no (unknown) (unknown) Intake- Clincial (units (unknown) date) Staff unknown) (unknown) (no (unknown) (unknown) Lab work (units (unkno wn) date) otherwise unknown) unremarkable. Next routine lab work due in 1 year, fasting (unknown) (no (unknown) (unknown) Last Menstural (units (unknown) date) Cycle + Details unknown) (unknown) (no (unknown) (unknown) Loc: [facility] (units (unkno wn) date) unknown) (unknown) (no (unknown) (unknown) [place] (-1960) (units (unknown) date) unknown) (unknown) (no (unknown) (unknown) Medical History (units (unknown) date) (Updated 11/26/21 unknown) @ 10:52 by JEANETH Calvin) (unknown) (no (unknown) (unknown) Medications (units (un known) date) unknown) (unknown) (no (unknown) (unknown) Medications: (units (u nknown) date) unknown) (unknown) (no (unknown) (unknown) Mother (units (unknown) date) Diabetes mellitus unknown) (unknown) (no (unknown) (unknown) NORMAL exxam (units (u nknown) date) today. unknown) (unknown) (no (unknown) (unknown) Orders (units (unkno wn) date) unknown) (unknown) (no (unknown) (unknown) Orders: (units (unkno wn) date) unknown) (unknown) (no (unknown) (unknown) Osteopenia (units (unk nown) date) location: unknown) unspecified Qualified Code(s): M85.80 - Other (unknown) (no (unknown) (unknown) Osteopenia (units (unk nown) date) unknown) (unknown) (no (unknown) (unknown) Osteopenia: We (units (unknown) date) will get updated unknown) DEXA scan. Will contact her with results and (unknown) (no (unknown) (unknown) Osteoporosis (units (u nknown) date) (-2009) unknown) (unknown) (no (unknown) (unknown) Other Menstrual (units (unknown) date) Period: unknown) Postmenopausal (unknown) (no (unknown) (unknown) Ovarian cyst (units (u nknown) date) (-1974) unknown) (unknown) (no (unknown) (unknown) Oxygen Delivery (units (unknown) date) Method room air unknown) (unknown) (no (unknown) (unknown) PFSH (units (unkno wn) date) unknown) (unknown) (no (unknown) (unknown) Patient completed (units (unknown) date) COVID-19 vaccine unknown) series and booster as well as her yearly flu (unknown) (no (unknown) (unknown) Patient is (units (unk nown) date) up-to-date on unknown) mammogram. She declines colonoscopy but does agree to (unknown) (no (unknown) (unknown) Patient reports (units (unknown) date) that she has been unknown) doing well. She is staying active working in (unknown) (no (unknown) (unknown) Patient will (units (u nknown) date) schedule a visit unknown) for review of lab work, focused physical exam as (unknown) (no (unknown) (unknown) Patient: (units (unkno wn) date) Ela Ramírez unknown) MR#: M (unknown) (no (unknown) (unknown) Plan (units (unkno wn) date) unknown) (unknown) (no (unknown) (unknown) Position Sitting (units (unknown) date) unknown) (unknown) (no (unknown) (unknown) Pulse 66 (units (unkno wn) date) unknown) (unknown) (no (unknown) (unknown) Pulse Oximetry (units (unknown) date) (%) 99 unknown) (unknown) (no (unknown) (unknown) Pulse Source (units (u nknown) date) Monitor unknown) (unknown) (no (unknown) (unknown) Qualifiers: (units (un known) date) unknown) (unknown) (no (unknown) (unknown) Reason For Visit (units (unknown) date) unknown) (unknown) (no (unknown) (unknown) Refilled (units (unkno wn) date) unknown) (unknown) (no (unknown) (unknown) Respiration 16 (units (unknown) date) unknown) (unknown) (no (unknown) (unknown) Signed By: (units (unk nown) date) unknown) (unknown) (no (unknown) (unknown) Sister Age: 54 (units (unknown) date) History of unknown) hysterectomy (unknown) (no (unknown) (unknown) Sister Age: 65 (units (unknown) date) History of unknown) hysterectomy (unknown) (no (unknown) (unknown) Smoking Status: (units (unknown) date) Never smoker unknown) (unknown) (no (unknown) (unknown) Status post knee (units (unknown) date) surgery (02/22/06) unknown) (unknown) (no (unknown) (unknown) Status post knee (units (unknown) date) surgery (10/07/07) unknown) (unknown) (no (unknown) (unknown) Status post (units (un known) date) ovarian cystectomy unknown) () (unknown) (no (unknown) (unknown) Status post tubal (units (unknown) date) ligation () unknown) (unknown) (no (unknown) (unknown) Status: Acute (units ( unknown) date) unknown) (unknown) (no (unknown) (unknown) Status: None (units (u nknown) date) unknown) (unknown) (no (unknown) (unknown) Stroke (units (unkno wn) date) unknown) (unknown) (no (unknown) (unknown) Surgical History (units (unknown) date) (Reviewed 11/26/21 unknown) @ 10:48 by JEANETH Calvin) (unknown) (no (unknown) (unknown) This note may (units ( unknown) date) have been all or unknown) partially generated using voice recognition (unknown) (no (unknown) (unknown) Tinnitus (-2011) (units (unknown) date) unknown) (unknown) (no (unknown) (unknown) To lisinopril 10 (units (unknown) date) mg PO DAILY 90 unknown) tabs 3RF (unknown) (no (unknown) (unknown) Tobacco + (units (unkn own) date) Substance Use unknown) (unknown) (no (unknown) (unknown) Tobacco Status (units (unknown) date) unknown) (unknown) (no (unknown) (unknown) Visit Reasons: (units (unknown) date) Annual physical unknown) (unknown) (no (unknown) (unknown) Vitals (units (unkno wn) date) unknown) (unknown) (no (unknown) (unknown) We saw the (units (unk nown) date) patient last about unknown) 1 year ago. At that time labs and blood pressure (unknown) (no (unknown) (unknown) Weight 65.317 kg (units (unknown) date) unknown) (unknown) (no (unknown) (unknown) XR DEXA axial (units (u nknown) date) skeleton 1 Week unknown) M85.80 - Other specified disorders of bone density (unknown) (no (unknown) (unknown) and structure, (units (unknown) date) unspecified site unknown) (unknown) (no (unknown) (unknown) appropriate, and (units (unknown) date) follow-up on unknown) chronic conditions/medicat ion review shortly after (unknown) (no (unknown) (unknown) atorvastatin (units (u nknown) date) (Lipitor) 10 mg PO unknown) HS 90 tabs 3RF (unknown) (no (unknown) (unknown) atorvastatin 10 (units (unknown) date) mg tablet unknown) (Lipitor) 10 mg PO HS #90 tabs 12/01/22 [Rx Confirmed (unknown) (no (unknown) (unknown) chronic (units (unkno wn) date) conditions/update unknown) medications. She has not had any recent lab work. (unknown) (no (unknown) (unknown) does not want (units ( unknown) date) shingrix. unknown) (unknown) (no (unknown) (unknown) fairly healthy (units (unknown) date) diet overall. She unknown) underwent cataract surgery bilaterally over (unknown) (no (unknown) (unknown) fit test. She has (units (unknown) date) a history of unknown) osteopenia, last DEXA was in 2018. (unknown) (no (unknown) (unknown) has a gentleman (units (unknown) date) friend. unknown) (unknown) (no (unknown) (unknown) has had Pneumovax (units (unknown) date) 13 and Pneumovax unknown) 23 vaccines completed. (unknown) (no (unknown) (unknown) have occurred. If (units (unknown) date) there are any unknown) questions, please contact the Medical Records (unknown) (no (unknown) (unknown) her yd and doing (units (unknown) date) a lot of walking unknown) in the park. She reports that she eats a (unknown) (no (unknown) (unknown) knee pain has (units ( unknown) date) been better d/t unknown) collagen supplement. (unknown) (no (unknown) (unknown) lab work is done. (units (unknown) date) unknown) (unknown) (no (unknown) (unknown) labs reviewed, NO (units (unknown) date) changes needed. unknown) (unknown) (no (unknown) (unknown) labs which will (units (unknown) date) be: CBC with no unknown) diff, TSH with reflex free T4, lipids, CMP. (unknown) (no (unknown) (unknown) levothyroxine (units ( unknown) date) (Synthroid) TAKE 1 unknown) TABLET DAILY 90 tabs 3RF (unknown) (no (unknown) (unknown) levothyroxine 112 (units (unknown) date) mcg tablet unknown) (Synthroid) See Rx Instructions .Route .COMPLEX #90 (unknown) (no (unknown) (unknown) lisinopril 10 mg (units (unknown) date) tablet 10 mg PO unknown) DAILY #90 tabs 12/01/22 [Rx Confirmed 12/01/22] (unknown) (no (unknown) (unknown) may occur. (units (unk nown) date) Occasional unknown) wrong-word or 'sound-alike' substitutions may have (unknown) (no (unknown) (unknown) measures. (units (unkn own) date) unknown) (unknown) (no (unknown) (unknown) neoplasm of colon (units (unknown) date) unknown) (unknown) (no (unknown) (unknown) new puppy (units (unkn own) date) dachsund. walking unknown) [place] beach. (unknown) (no (unknown) (unknown) occasionally; she (units (unknown) date) uses a THC balm as unknown) needed which helps this. (unknown) (no (unknown) (unknown) occurred due to (units (unknown) date) the inherent unknown) limitations of voice recognition software. Please (unknown) (no (unknown) (unknown) penicillin G (units (u nknown) date) [PENICILLIN G] unknown) Allergy (Unknown, Verified 12/01/22 11:12) (unknown) (no (unknown) (unknown) read the note (units ( unknown) date) carefully and unknown) recognize, using context, where these substitutions (unknown) (no (unknown) (unknown) recommendations, (units (unknown) date) including unknown) potentially scheduling her for a visit to review re (unknown) (no (unknown) (unknown) same. (units (unkno wn) date) unknown) (unknown) (no (unknown) (unknown) software. 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 unknown) (unknown) (no (unknown) (unknown) tabs 12/01/22 [Rx (units (unknown) date) Confirmed unknown) 12/01/22] (unknown) (no (unknown) (unknown) the summer and (units (unknown) date) states that this unknown) went well. Her left knee pain returns (unknown) (no (unknown) (unknown) triamterene 75 (units (unknown) date) mg-hydrochlorothia unknown) zide 50 mg tablet See Rx Instructions .Route (unknown) (no (unknown) (unknown) triamterene-hydro (units (unknown) date) chlorothiazid unknown) 75-50 mg TAKE 1 TABLET DAILY 90 tabs 3RF (unknown) (no (unknown) (unknown) vaccine. (units (unkno wn) date) unknown) (unknown) (no (unknown) (unknown) varicella-zoster (units (unknown) date) glycoE vacc-[id number] unknown) adj(PF) 50 mcg/0.5 mL IM susp, kit (Shingrix (unknown) (no (unknown) (unknown) waiting for last (units (unknown) date) covid booster unknown) since she had covid. (unknown) (no (unknown) (unknown) were stable and (units (unknown) date) we maintained her unknown) regimen as it was. Result panel 35 (unknown) (no (unknown) (unknown) (no value) (units (unk nown) date) unknown) (unknown) (no (unknown) (unknown) (1) Osteopenia: (units (unknown) date) unknown) (unknown) (no (unknown) (unknown) (2) Colon cancer (units (unknown) date) screening: unknown) (unknown) (no (unknown) (unknown) (3) Dyslipidemia: (units (unknown) date) unknown) (unknown) (no (unknown) (unknown) (4) (units (unkno wn) date) Hypothyroidism: unknown) (unknown) (no (unknown) (unknown) (5) Essential (units ( unknown) date) hypertension: unknown) (unknown) (no (unknown) (unknown) (PF)) 0.5 ml IM (units (unknown) date) ONCE #1 ea unknown) 11/26/21 [Rx Confirmed 12/01/22] (unknown) (no (unknown) (unknown) .COMPLEX #90 tabs (units (unknown) date) 12/01/22 [Rx unknown) Confirmed 12/01/22] (unknown) (no (unknown) (unknown) [id number] (units (unkn own) date) unknown) (unknown) (no (unknown) (unknown) 12/01/22 (units (unkno wn) date) unknown) (unknown) (no (unknown) (unknown) 12/01/22] (units (unkn own) date) unknown) (unknown) (no (unknown) (unknown) 11:13 (units (unkno wn) date) unknown) (unknown) (no (unknown) (unknown) 72 yo female (units (u nknown) date) presents today for unknown) annual Medical Wellness. (unknown) (no (unknown) (unknown) 72-year-old (units (un known) date) female presents unknown) for annual visit to follow-up on lab work and (unknown) (no (unknown) (unknown) Age/Sex: 72 / F (units (unknown) date) Date of Service: unknown) (unknown) (no (unknown) (unknown) Allergies (units (unkn own) date) unknown) (unknown) (no (unknown) (unknown) [place], [place] (units ( unknown) date) [id number] unknown) (unknown) (no (unknown) (unknown) Anesthesia (units (unk nown) date) unknown) (unknown) (no (unknown) (unknown) Assessment + Plan (units (unknown) date) unknown) (unknown) (no (unknown) (unknown) Asthma (units (unkno wn) date) unknown) (unknown) (no (unknown) (unknown) Attending Dr: (units ( unknown) date) Kareem ERIC unknown) (unknown) (no (unknown) (unknown) BMI 22.8 (units (unkno wn) date) unknown) (unknown) (no (unknown) (unknown) BP 120/80 (units (unkn own) date) unknown) (unknown) (no (unknown) (unknown) Blood Pressure (units (unknown) date) Location Lt unknown) brachial (unknown) (no (unknown) (unknown) Brother Age: 64 (units (unknown) date) Hypertension unknown) (unknown) (no (unknown) (unknown) Brother Age: 69 (units (unknown) date) Alcoholic unknown) (unknown) (no (unknown) (unknown) Changed (units (unkno wn) date) unknown) (unknown) (no (unknown) (unknown) Chicken pox (units (un known) date) (-1959) unknown) (unknown) (no (unknown) (unknown) Chief Complaint (units (unknown) date) unknown) (unknown) (no (unknown) (unknown) Chief Complaint: (units (unknown) date) Follow-up lab unknown) work/chronic conditions (unknown) (no (unknown) (unknown) : 1950 (units (unknown) date) Acct:[id number] unknown) (unknown) (no (unknown) (unknown) DONE ORDERED (units (unknown) date) LAST YEAR. unknown) (unknown) (no (unknown) (unknown) DUE FOR MAMMOGRAM (units (unknown) date) AND COLORECTAL unknown) CANCER SCREENING. SHE NEVER GOT HER DEXA SCAN (unknown) (no (unknown) (unknown) Denies any major (units (unknown) date) changes in her unknown) health since we saw her last.? States that her (unknown) (no (unknown) (unknown) Dept at (units (unkno wn) date) . unknown) (unknown) (no (unknown) (unknown) Details: (units (unkno wn) date) unknown) (unknown) (no (unknown) (unknown) Documented By: (units (unknown) date) Kareem Sanchez unknown) 12/01/22 0743 (unknown) (no (unknown) (unknown) Draft (units (unkno wn) date) unknown) (unknown) (no (unknown) (unknown) Dyslipidemia (units (u nknown) date) unknown) (unknown) (no (unknown) (unknown) Dyslipidemia: (units ( unknown) date) Lipid profile unknown) favorable. Continue regimen and lifestyle (unknown) (no (unknown) (unknown) Family History (units (unknown) date) (Reviewed 11/26/21 unknown) @ 10:48 by JEANETH Calvin) (unknown) (no (unknown) (unknown) Family Practice (units (unknown) date) Office Visit unknown) (unknown) (no (unknown) (unknown) Father (units (unknown) date) Cancer unknown) (unknown) (no (unknown) (unknown) Fecal (units (unkno wn) date) Immunochemical unknown) Test 1 Week Z12.11 - Encounter for screening for malignant (unknown) (no (unknown) (unknown) [facility]) (unknown) (no (unknown) (unknown) Fit test ordered (units (unknown) date) for colon cancer unknown) screening. Shingrix vaccine ordered. Patient (unknown) (no (unknown) (unknown) Fractures (units (unkn own) date) unknown) (unknown) (no (unknown) (unknown) From lisinopril (units (unknown) date) TAKE 1 TABLET unknown) DAILY 90 tabs 0RF (unknown) (no (unknown) (unknown) GI UPSET (units (unkno wn) date) unknown) (unknown) (no (unknown) (unknown) Grandfather (units (un known) date) Heart unknown) disease (unknown) (no (unknown) (unknown) Grandmother (units (un known) date) Heart unknown) disease (unknown) (no (unknown) (unknown) HPI (units (unkno wn) date) unknown) (unknown) (no (unknown) (unknown) Heart disease (units ( unknown) date) unknown) (unknown) (no (unknown) (unknown) Height 168.91 cm (units (unknown) date) unknown) (unknown) (no (unknown) (unknown) High cholesterol (units (unknown) date) unknown) (unknown) (no (unknown) (unknown) History of (units (unk nown) date) tonsillectomy unknown) (-1953) (unknown) (no (unknown) (unknown) Hyperlipidemia (units (unknown) date) unknown) (unknown) (no (unknown) (unknown) Hypertension (units (u nknown) date) (-1977) unknown) (unknown) (no (unknown) (unknown) Hypertension (units (u nknown) date) unknown) (unknown) (no (unknown) (unknown) Hypertension: (units ( unknown) date) Blood pressure unknown) excellent. Medication well tolerated. Continue (unknown) (no (unknown) (unknown) Hyperthyroidism (units (unknown) date) unknown) (unknown) (no (unknown) (unknown) Hypochondria (units (u nknown) date) unknown) (unknown) (no (unknown) (unknown) Hypothyroidism (units (unknown) date) type: unspecified unknown) Qualified Code(s): E03.9 (unknown) (no (unknown) (unknown) Hypothyroidism, (units (unknown) date) unspecified unknown) (unknown) (no (unknown) (unknown) Hypothyroidism: (units (unknown) date) TSH within normal unknown) limits. Continue current regimen. (unknown) (no (unknown) (unknown) Intake Note: (units (u nknown) date) unknown) (unknown) (no (unknown) (unknown) Intake performed (units (unknown) date) by: Sara Meyer unknown) (unknown) (no (unknown) (unknown) Intake (units (unkno wn) date) unknown) (unknown) (no (unknown) (unknown) Intake- Clincial (units (unknown) date) Staff unknown) (unknown) (no (unknown) (unknown) Lab work (units (unkno wn) date) otherwise unknown) unremarkable. Next routine lab work due in 1 year, fasting (unknown) (no (unknown) (unknown) Last Menstural (units (unknown) date) Cycle + Details unknown) (unknown) (no (unknown) (unknown) Loc: [facility] (units (unkno wn) date) unknown) (unknown) (no (unknown) (unknown) [facility] (-1960) (units (unknown) date) unknown) (unknown) (no (unknown) (unknown) Medical History (units (unknown) date) (Updated 11/26/21 unknown) @ 10:52 by JEANETH Calvin) (unknown) (no (unknown) (unknown) Medications (units (un known) date) unknown) (unknown) (no (unknown) (unknown) Medications: (units (u nknown) date) unknown) (unknown) (no (unknown) (unknown) Mother (units (unknown) date) Diabetes mellitus unknown) (unknown) (no (unknown) (unknown) NORMAL exxam (units (u nknown) date) today. unknown) (unknown) (no (unknown) (unknown) Orders (units (unkno wn) date) unknown) (unknown) (no (unknown) (unknown) Orders: (units (unkno wn) date) unknown) (unknown) (no (unknown) (unknown) Osteopenia (units (unk nown) date) location: unknown) unspecified Qualified Code(s): M85.80 - Other (unknown) (no (unknown) (unknown) Osteopenia (units (unk nown) date) unknown) (unknown) (no (unknown) (unknown) Osteopenia: We (units (unknown) date) will get updated unknown) DEXA scan. Will contact her with results and (unknown) (no (unknown) (unknown) Osteoporosis (units (u nknown) date) () unknown) (unknown) (no (unknown) (unknown) Other Menstrual (units (unknown) date) Period: unknown) Postmenopausal (unknown) (no (unknown) (unknown) Ovarian cyst (units (u nknown) date) () unknown) (unknown) (no (unknown) (unknown) Oxygen Delivery (units (unknown) date) Method room air unknown) (unknown) (no (unknown) (unknown) PFSH (units (unkno wn) date) unknown) (unknown) (no (unknown) (unknown) Patient completed (units (unknown) date) COVID-19 vaccine unknown) series and booster as well as her yearly flu (unknown) (no (unknown) (unknown) Patient is (units (unk nown) date) up-to-date on unknown) mammogram. She declines colonoscopy but does agree to (unknown) (no (unknown) (unknown) Patient tells me (units (unknown) date) that she is doing unknown) fairly well.? She has a gentleman friend with (unknown) (no (unknown) (unknown) Patient will (units (u nknown) date) schedule a visit unknown) for review of lab work, focused physical exam as (unknown) (no (unknown) (unknown) Patient: (units (unkno wn) date) Ela Ramírez unknown) MR#: M (unknown) (no (unknown) (unknown) Plan (units (unkno wn) date) unknown) (unknown) (no (unknown) (unknown) Position Sitting (units (unknown) date) unknown) (unknown) (no (unknown) (unknown) Pulse 66 (units (unkno wn) date) unknown) (unknown) (no (unknown) (unknown) Pulse Oximetry (units (unknown) date) (%) 99 unknown) (unknown) (no (unknown) (unknown) Pulse Source (units (u nknown) date) Monitor unknown) (unknown) (no (unknown) (unknown) Qualifiers: (units (un known) date) unknown) (unknown) (no (unknown) (unknown) Reason For Visit (units (unknown) date) unknown) (unknown) (no (unknown) (unknown) Refilled (units (unkno wn) date) unknown) (unknown) (no (unknown) (unknown) Respiration 16 (units (unknown) date) unknown) (unknown) (no (unknown) (unknown) Signed By: (units (unk nown) date) unknown) (unknown) (no (unknown) (unknown) Sister Age: 54 (units (unknown) date) History of unknown) hysterectomy (unknown) (no (unknown) (unknown) Sister Age: 65 (units (unknown) date) History of unknown) hysterectomy (unknown) (no (unknown) (unknown) Smoking Status: (units (unknown) date) Never smoker unknown) (unknown) (no (unknown) (unknown) Status post knee (units (unknown) date) surgery (02/22/06) unknown) (unknown) (no (unknown) (unknown) Status post knee (units (unknown) date) surgery (10/07/07) unknown) (unknown) (no (unknown) (unknown) Status post (units (un known) date) ovarian cystectomy unknown) () (unknown) (no (unknown) (unknown) Status post tubal (units (unknown) date) ligation () unknown) (unknown) (no (unknown) (unknown) Status: Acute (units ( unknown) date) unknown) (unknown) (no (unknown) (unknown) Status: None (units (u nknown) date) unknown) (unknown) (no (unknown) (unknown) Stroke (units (unkno wn) date) unknown) (unknown) (no (unknown) (unknown) Surgical History (units (unknown) date) (Reviewed 11/26/21 unknown) @ 10:48 by JEANETH Calvin) (unknown) (no (unknown) (unknown) This note may (units ( unknown) date) have been all or unknown) partially generated using voice recognition (unknown) (no (unknown) (unknown) Tinnitus (-2011) (units (unknown) date) unknown) (unknown) (no (unknown) (unknown) To lisinopril 10 (units (unknown) date) mg PO DAILY 90 unknown) tabs 3RF (unknown) (no (unknown) (unknown) Tobacco + (units (unkn own) date) Substance Use unknown) (unknown) (no (unknown) (unknown) Tobacco Status (units (unknown) date) unknown) (unknown) (no (unknown) (unknown) Visit Reasons: (units (unknown) date) Annual physical unknown) (unknown) (no (unknown) (unknown) Vitals (units (unkno wn) date) unknown) (unknown) (no (unknown) (unknown) We saw the (units (unk nown) date) patient last about unknown) 1 year ago. At that time labs and blood pressure (unknown) (no (unknown) (unknown) Weight 65.317 kg (units (unknown) date) unknown) (unknown) (no (unknown) (unknown) XR DEXA axial (units (u nknown) date) skeleton 1 Week unknown) M85.80 - Other specified disorders of bone density (unknown) (no (unknown) (unknown) and structure, (units (unknown) date) unspecified site unknown) (unknown) (no (unknown) (unknown) appropriate, and (units (unknown) date) follow-up on unknown) chronic conditions/medicat ion review shortly after (unknown) (no (unknown) (unknown) atorvastatin (units (u nknown) date) (Lipitor) 10 mg PO unknown) HS 90 tabs 3RF (unknown) (no (unknown) (unknown) atorvastatin 10 (units (unknown) date) mg tablet unknown) (Lipitor) 10 mg PO HS #90 tabs 12/01/22 [Rx Confirmed (unknown) (no (unknown) (unknown) chronic (units (unkno wn) date) conditions/update unknown) medications. She has not had any recent lab work. (unknown) (no (unknown) (unknown) does not want (units ( unknown) date) shingrix. unknown) (unknown) (no (unknown) (unknown) esults in detail (units (unknown) date) if indicated. unknown) (unknown) (no (unknown) (unknown) fit test. She has (units (unknown) date) a history of unknown) osteopenia, last DEXA was in 2018. (unknown) (no (unknown) (unknown) has a gentleman (units (unknown) date) friend. unknown) (unknown) (no (unknown) (unknown) has had Pneumovax (units (unknown) date) 13 and Pneumovax unknown) 23 vaccines completed. (unknown) (no (unknown) (unknown) have occurred. If (units (unknown) date) there are any unknown) questions, please contact the Medical Records (unknown) (no (unknown) (unknown) knee pain has (units ( unknown) date) been better d/t unknown) collagen supplement. (unknown) (no (unknown) (unknown) lab work is done. (units (unknown) date) unknown) (unknown) (no (unknown) (unknown) labs reviewed, NO (units (unknown) date) changes needed. unknown) (unknown) (no (unknown) (unknown) labs which will (units (unknown) date) be: CBC with no unknown) diff, TSH with reflex free T4, lipids, CMP. (unknown) (no (unknown) (unknown) left knee pain (units (unknown) date) seems to be doing unknown) better since she started taking a collagen (unknown) (no (unknown) (unknown) levothyroxine (units ( unknown) date) (Synthroid) TAKE 1 unknown) TABLET DAILY 90 tabs 3RF (unknown) (no (unknown) (unknown) levothyroxine 112 (units (unknown) date) mcg tablet unknown) (Synthroid) See Rx Instructions .Route .COMPLEX #90 (unknown) (no (unknown) (unknown) lisinopril 10 mg (units (unknown) date) tablet 10 mg PO unknown) DAILY #90 tabs 12/01/22 [Rx Confirmed 12/01/22] (unknown) (no (unknown) (unknown) may occur. (units (unk nown) date) Occasional unknown) wrong-word or 'sound-alike' substitutions may have (unknown) (no (unknown) (unknown) measures. (units (unkn own) date) unknown) (unknown) (no (unknown) (unknown) neoplasm of colon (units (unknown) date) unknown) (unknown) (no (unknown) (unknown) new puppy (units (unkn own) date) dachsund. walking unknown) [place]. (unknown) (no (unknown) (unknown) occurred due to (units (unknown) date) the inherent unknown) limitations of voice recognition software. Please (unknown) (no (unknown) (unknown) penicillin G (units (u nknown) date) [PENICILLIN G] unknown) Allergy (Unknown, Verified 12/01/22 11:12) (unknown) (no (unknown) (unknown) read the note (units ( unknown) date) carefully and unknown) recognize, using context, where these substitutions (unknown) (no (unknown) (unknown) recommendations, (units (unknown) date) including unknown) potentially scheduling her for a visit to review r (unknown) (no (unknown) (unknown) same. (units (unkno wn) date) unknown) (unknown) (no (unknown) (unknown) software. 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 (units (un known) date) unknown) (unknown) (no (unknown) (unknown) tabs 12/01/22 [Rx (units (unknown) date) Confirmed unknown) 12/01/22] (unknown) (no (unknown) (unknown) triamterene 75 (units (unknown) date) mg-hydrochlorothia unknown) zide 50 mg tablet See Rx Instructions .Route (unknown) (no (unknown) (unknown) triamterene-hydro (units (unknown) date) chlorothiazid unknown) 75-50 mg TAKE 1 TABLET DAILY 90 tabs 3RF (unknown) (no (unknown) (unknown) vaccine. (units (unkno wn) date) unknown) (unknown) (no (unknown) (unknown) varicella-zoster (units (unknown) date) glycoE vacc-[id number] unknown) adj(PF) 50 mcg/0.5 mL IM susp, kit (Shingrix (unknown) (no (unknown) (unknown) waiting for last (units (unknown) date) covid booster unknown) since she had covid. (unknown) (no (unknown) (unknown) walking on the (units (unknown) date) beach.? unknown) (unknown) (no (unknown) (unknown) were stable and (units (unknown) date) we maintained her unknown) regimen as it was. (unknown) (no (unknown) (unknown) whom she spends (units (unknown) date) time and she unknown) recently got a new puppy.? Spends a lot of time Result panel 36 (unknown) (no (unknown) (unknown) (no value) (units (unk nown) date) unknown) (unknown) (no (unknown) (unknown) (1) Dyslipidemia: (units (unknown) date) unknown) (unknown) (no (unknown) (unknown) (2) Osteopenia: (units (unknown) date) unknown) (unknown) (no (unknown) (unknown) (3) Colon cancer (units (unknown) date) screening: unknown) (unknown) (no (unknown) (unknown) (4) (units (unkno wn) date) Hypothyroidism: unknown) (unknown) (no (unknown) (unknown) (5) Essential (units ( unknown) date) hypertension: unknown) (unknown) (no (unknown) (unknown) (PF)) 0.5 ml IM (units (unknown) date) ONCE #1 ea unknown) 11/26/21 [Rx Confirmed 12/01/22] (unknown) (no (unknown) (unknown) .COMPLEX #90 tabs (units (unknown) date) 12/01/22 [Rx unknown) Confirmed 12/01/22] (unknown) (no (unknown) (unknown) [id number] (units (unkn own) date) unknown) (unknown) (no (unknown) (unknown) 12/01/22 (units (unkno wn) date) unknown) (unknown) (no (unknown) (unknown) 12/01/22] (units (unkn own) date) unknown) (unknown) (no (unknown) (unknown) 11:13 (units (unkno wn) date) unknown) (unknown) (no (unknown) (unknown) 72 yo female (units (u nknown) date) presents today for unknown) annual Medical [facility]. (unknown) (no (unknown) (unknown) 72-year-old (units (un known) date) female presents unknown) for annual visit to follow-up on lab work and (unknown) (no (unknown) (unknown) Affect: normal (units (unknown) date) affect unknown) (unknown) (no (unknown) (unknown) Age/Sex: 72 / F (units (unknown) date) Date of Service: unknown) (unknown) (no (unknown) (unknown) All systems (units (un known) date) reviewed + are unknown) unremarkable except as noted in HPI and below (unknown) (no (unknown) (unknown) Allergies (units (unkn own) date) unknown) (unknown) (no (unknown) (unknown) [place], [place] (units ( unknown) date) [id number] unknown) (unknown) (no (unknown) (unknown) Anesthesia (units (unk nown) date) unknown) (unknown) (no (unknown) (unknown) Appearance: (units (un known) date) grossly normal unknown) (unknown) (no (unknown) (unknown) Assessment + Plan (units (unknown) date) unknown) (unknown) (no (unknown) (unknown) Asthma (units (unkno wn) date) unknown) (unknown) (no (unknown) (unknown) Attending Dr: (units ( unknown) date) Kareem ERIC unknown) (unknown) (no (unknown) (unknown) Attitude: (units (unkn own) date) cooperative unknown) (unknown) (no (unknown) (unknown) Auscultation: (units ( unknown) date) clear to unknown) auscultation bilaterally (unknown) (no (unknown) (unknown) BMI 22.8 (units (unkno wn) date) unknown) (unknown) (no (unknown) (unknown) BP 120/80 (units (unkn own) date) unknown) (unknown) (no (unknown) (unknown) Blood Pressure (units (unknown) date) Location Lt unknown) brachial (unknown) (no (unknown) (unknown) Brother Age: 64 (units (unknown) date) Hypertension unknown) (unknown) (no (unknown) (unknown) Brother Age: 69 (units (unknown) date) Alcoholic unknown) (unknown) (no (unknown) (unknown) Cardio (units (unkno wn) date) unknown) (unknown) (no (unknown) (unknown) Carotids: no (units (u nknown) date) bruits unknown) (unknown) (no (unknown) (unknown) Changed (units (unkno wn) date) unknown) (unknown) (no (unknown) (unknown) Chicken pox (units (un known) date) (-1960) unknown) (unknown) (no (unknown) (unknown) Chief Complaint (units (unknown) date) unknown) (unknown) (no (unknown) (unknown) Chief Complaint: (units (unknown) date) Follow-up lab unknown) work/chronic conditions (unknown) (no (unknown) (unknown) Cognition: normal (units (unknown) date) cognition unknown) (unknown) (no (unknown) (unknown) Const (units (unkno wn) date) unknown) (unknown) (no (unknown) (unknown) : 1950 (units (unknown) date) Acct:[id number] unknown) (unknown) (no (unknown) (unknown) DONE ORDERED (units (unknown) date) LAST YEAR. unknown) (unknown) (no (unknown) (unknown) DUE FOR MAMMOGRAM (units (unknown) date) AND COLORECTAL unknown) CANCER SCREENING. SHE NEVER GOT HER DEXA SCAN (unknown) (no (unknown) (unknown) Denies any major (units (unknown) date) changes in her unknown) health since we saw her last.? States that her (unknown) (no (unknown) (unknown) Dept at (units (unkno wn) date) . unknown) (unknown) (no (unknown) (unknown) Details: (units (unkno wn) date) unknown) (unknown) (no (unknown) (unknown) Documented By: (units (unknown) date) Kareem Sanchez unknown) 12/01/22 0743 (unknown) (no (unknown) (unknown) Draft (units (unkno wn) date) unknown) (unknown) (no (unknown) (unknown) Dyslipidemia (units (u nknown) date) unknown) (unknown) (no (unknown) (unknown) Dyslipidemia: (units ( unknown) date) Lipid profile unknown) favorable. Continue regimen and lifestyle (unknown) (no (unknown) (unknown) Ears: hearing (units ( unknown) date) grossly normal unknown) bilaterally, TM's normal bilaterally and EAC's (unknown) (no (unknown) (unknown) Effort + (units (unkno wn) date) Inspection: normal unknown) respiratory effort (unknown) (no (unknown) (unknown) Exam (units (unkno wn) date) unknown) (unknown) (no (unknown) (unknown) Extrem (units (unkno wn) date) unknown) (unknown) (no (unknown) (unknown) Eyes (units (unkno wn) date) unknown) (unknown) (no (unknown) (unknown) Family History (units (unknown) date) (Reviewed 12/06/22 unknown) @ 11:31 by JEANETH Calvin) (unknown) (no (unknown) (unknown) Family Practice (units (unknown) date) Office Visit unknown) (unknown) (no (unknown) (unknown) Father (units (unknown) date) Cancer unknown) (unknown) (no (unknown) (unknown) Fecal (units (unkno wn) date) Immunochemical unknown) Test 1 Week Z12.11 - Encounter for screening for malignant (unknown) (no (unknown) (unknown) [facility]) (unknown) (no (unknown) (unknown) Fit test ordered (units (unknown) date) for colon cancer unknown) screening. Shingrix vaccine ordered. Patient (unknown) (no (unknown) (unknown) Fractures (units (unkn own) date) unknown) (unknown) (no (unknown) (unknown) From lisinopril (units (unknown) date) TAKE 1 TABLET unknown) DAILY 90 tabs 0RF (unknown) (no (unknown) (unknown) GI UPSET (units (unkno wn) date) unknown) (unknown) (no (unknown) (unknown) GI (units (unkno wn) date) unknown) (unknown) (no (unknown) (unknown) Gait: normal gait (units (unknown) date) unknown) (unknown) (no (unknown) (unknown) General: (units (unkno wn) date) appearance normal, unknown) both eyes and all related structures (unknown) (no (unknown) (unknown) General: (units (unkno wn) date) cooperative and no unknown) acute distress (unknown) (no (unknown) (unknown) General: no (units (un known) date) rashes or lesions unknown) noted, elasticity normal and turgor normal (unknown) (no (unknown) (unknown) General: normal (units (unknown) date) to inspection and unknown) no edema (unknown) (no (unknown) (unknown) General: patient (units (unknown) date) alert, patient unknown) awake, patient oriented x3, CN's II-XI intact (unknown) (no (unknown) (unknown) Grandfather (units (un known) date) Heart unknown) disease (unknown) (no (unknown) (unknown) Grandmother (units (un known) date) Heart unknown) disease (unknown) (no (unknown) (unknown) HENMT (units (unkno wn) date) unknown) (unknown) (no (unknown) (unknown) HPI (units (unkno wn) date) unknown) (unknown) (no (unknown) (unknown) Head: normal to (units (unknown) date) inspection, unknown) normocephalic and atraumatic (unknown) (no (unknown) (unknown) Heart Sounds: S1 (units (unknown) date) normal, S2 normal, unknown) normal S1 and S2 and no murmurs (unknown) (no (unknown) (unknown) Heart disease (units ( unknown) date) unknown) (unknown) (no (unknown) (unknown) Height 168.91 cm (units (unknown) date) unknown) (unknown) (no (unknown) (unknown) High cholesterol (units (unknown) date) unknown) (unknown) (no (unknown) (unknown) History of (units (unk nown) date) tonsillectomy unknown) (-1953) (unknown) (no (unknown) (unknown) Hyperlipidemia (units (unknown) date) unknown) (unknown) (no (unknown) (unknown) Hypertension (units (u nknown) date) (-1977) unknown) (unknown) (no (unknown) (unknown) Hypertension (units (u nknown) date) unknown) (unknown) (no (unknown) (unknown) Hypertension: (units ( unknown) date) Blood pressure unknown) excellent. Medication well tolerated. Continue (unknown) (no (unknown) (unknown) Hyperthyroidism (units (unknown) date) unknown) (unknown) (no (unknown) (unknown) Hypochondria (units (u nknown) date) unknown) (unknown) (no (unknown) (unknown) Hypothyroidism (units (unknown) date) type: unspecified unknown) Qualified Code(s): E03.9 (unknown) (no (unknown) (unknown) Hypothyroidism, (units (unknown) date) unspecified unknown) (unknown) (no (unknown) (unknown) Hypothyroidism: (units (unknown) date) TSH within normal unknown) limits. Continue current regimen. (unknown) (no (unknown) (unknown) Inspection: (units (un known) date) normal to unknown) inspection (unknown) (no (unknown) (unknown) Intake Note: (units (u nknown) date) unknown) (unknown) (no (unknown) (unknown) Intake performed (units (unknown) date) by: Sara Meyer unknown) (unknown) (no (unknown) (unknown) Intake (units (unkno wn) date) unknown) (unknown) (no (unknown) (unknown) Intake- Clincial (units (unknown) date) Staff unknown) (unknown) (no (unknown) (unknown) Judgment: (units (unkn own) date) judgment good unknown) (unknown) (no (unknown) (unknown) Lab work (units (unkno wn) date) otherwise unknown) unremarkable. Next routine lab work due in 1 year, fasting (unknown) (no (unknown) (unknown) Last Menstural (units (unknown) date) Cycle + Details unknown) (unknown) (no (unknown) (unknown) Loc: [facility] (units (unkno wn) date) unknown) (unknown) (no (unknown) (unknown) [place] (-1960) (units (unknown) date) unknown) (unknown) (no (unknown) (unknown) Medical History (units (unknown) date) (Reviewed 12/06/22 unknown) @ 11:31 by JEANETH Calvin) (unknown) (no (unknown) (unknown) Medications (units (un known) date) unknown) (unknown) (no (unknown) (unknown) Medications: (units (u nknown) date) unknown) (unknown) (no (unknown) (unknown) Mental Status: (units (unknown) date) mental status unknown) grossly normal (unknown) (no (unknown) (unknown) Mood: congruent (units (unknown) date) mood unknown) (unknown) (no (unknown) (unknown) Mother (units (unknown) date) Diabetes mellitus unknown) (unknown) (no (unknown) (unknown) Motor: muscle (units ( unknown) date) tone normal unknown) throughout (unknown) (no (unknown) (unknown) Mouth: oral (units (un known) date) mucosae normal and unknown) oropharynx normal (unknown) (no (unknown) (unknown) NORMAL exxam (units (u nknown) date) today. unknown) (unknown) (no (unknown) (unknown) Neck mass: No (units ( unknown) date) unknown) (unknown) (no (unknown) (unknown) Neck (units (unkno wn) date) unknown) (unknown) (no (unknown) (unknown) Neck: normal (units (u nknown) date) visual inspection unknown) and no lymphadenopathy (unknown) (no (unknown) (unknown) Neuro (units (unkno wn) date) unknown) (unknown) (no (unknown) (unknown) Nose: external (units (unknown) date) nose normal and unknown) nasal mucous membranes and turbinates normal (unknown) (no (unknown) (unknown) Orders (units (unkno wn) date) unknown) (unknown) (no (unknown) (unknown) Orders: (units (unkno wn) date) unknown) (unknown) (no (unknown) (unknown) Osteopenia (units (unk nown) date) location: unknown) unspecified Qualified Code(s): M85.80 - Other (unknown) (no (unknown) (unknown) Osteopenia (units (unk nown) date) unknown) (unknown) (no (unknown) (unknown) Osteopenia: We (units (unknown) date) will get updated unknown) DEXA scan. Will contact her with results and (unknown) (no (unknown) (unknown) Osteoporosis (units (u nknown) date) () unknown) (unknown) (no (unknown) (unknown) Other Menstrual (units (unknown) date) Period: unknown) Postmenopausal (unknown) (no (unknown) (unknown) Ovarian cyst (units (u nknown) date) () unknown) (unknown) (no (unknown) (unknown) Oxygen Delivery (units (unknown) date) Method room air unknown) (unknown) (no (unknown) (unknown) PFSH (units (unkno wn) date) unknown) (unknown) (no (unknown) (unknown) Palpation: soft, (units (unknown) date) no unknown) hepatosplenomegaly , no guarding, no hernias, no masses and (unknown) (no (unknown) (unknown) Patient completed (units (unknown) date) COVID-19 vaccine unknown) series and booster as well as her yearly flu (unknown) (no (unknown) (unknown) Patient is (units (unk nown) date) up-to-date on unknown) mammogram. She declines colonoscopy but does agree to (unknown) (no (unknown) (unknown) Patient tells me (units (unknown) date) that she is doing unknown) fairly well.? She has a gentleman friend with (unknown) (no (unknown) (unknown) Patient will (units (u nknown) date) schedule a visit unknown) for review of lab work, focused physical exam as (unknown) (no (unknown) (unknown) Patient: (units (unkno wn) date) Ela Ramírez L unknown) MR#: M (unknown) (no (unknown) (unknown) Percussion: (units (un known) date) normal to unknown) percussion (unknown) (no (unknown) (unknown) Plan (units (unkno wn) date) unknown) (unknown) (no (unknown) (unknown) Position Sitting (units (unknown) date) unknown) (unknown) (no (unknown) (unknown) Psych (units (unkno wn) date) unknown) (unknown) (no (unknown) (unknown) Pulse 66 (units (unkno wn) date) unknown) (unknown) (no (unknown) (unknown) Pulse Oximetry (units (unknown) date) (%) 99 unknown) (unknown) (no (unknown) (unknown) Pulse Source (units (u nknown) date) Monitor unknown) (unknown) (no (unknown) (unknown) Qualifiers: (units (un known) date) unknown) (unknown) (no (unknown) (unknown) ROS (units (unkno wn) date) unknown) (unknown) (no (unknown) (unknown) Rate: regular (units ( unknown) date) rate unknown) (unknown) (no (unknown) (unknown) Reason For Visit (units (unknown) date) unknown) (unknown) (no (unknown) (unknown) Refilled (units (unkno wn) date) unknown) (unknown) (no (unknown) (unknown) Resp (units (unkno wn) date) unknown) (unknown) (no (unknown) (unknown) Respiration 16 (units (unknown) date) unknown) (unknown) (no (unknown) (unknown) Rhythm: regular (units (unknown) date) rhythm unknown) (unknown) (no (unknown) (unknown) Sensory Exam: no (units (unknown) date) sensory deficits unknown) noted (unknown) (no (unknown) (unknown) Signed By: (units (unk nown) date) unknown) (unknown) (no (unknown) (unknown) Sister Age: 54 (units (unknown) date) History of unknown) hysterectomy (unknown) (no (unknown) (unknown) Sister Age: 65 (units (unknown) date) History of unknown) hysterectomy (unknown) (no (unknown) (unknown) Skin (units (unkno wn) date) unknown) (unknown) (no (unknown) (unknown) Smoking Status: (units (unknown) date) Never smoker unknown) (unknown) (no (unknown) (unknown) Speech: speech (units (unknown) date) normal unknown) (unknown) (no (unknown) (unknown) Status post knee (units (unknown) date) surgery (02/22/06) unknown) (unknown) (no (unknown) (unknown) Status post knee (units (unknown) date) surgery (10/07/07) unknown) (unknown) (no (unknown) (unknown) Status post (units (un known) date) ovarian cystectomy unknown) () (unknown) (no (unknown) (unknown) Status post tubal (units (unknown) date) ligation () unknown) (unknown) (no (unknown) (unknown) Status: Acute (units ( unknown) date) unknown) (unknown) (no (unknown) (unknown) Status: None (units (u nknown) date) unknown) (unknown) (no (unknown) (unknown) Stroke (units (unkno wn) date) unknown) (unknown) (no (unknown) (unknown) Surgical History (units (unknown) date) (Reviewed 12/06/22 unknown) @ 11:31 by JEANETH Calvin) (unknown) (no (unknown) (unknown) This note may (units ( unknown) date) have been all or unknown) partially generated using voice recognition (unknown) (no (unknown) (unknown) Thought Content: (units (unknown) date) normal unknown) (unknown) (no (unknown) (unknown) Thought Process: (units (unknown) date) normal unknown) (unknown) (no (unknown) (unknown) Throat: posterior (units (unknown) date) oropharynx normal unknown) (unknown) (no (unknown) (unknown) Thyroid: thyroid (units (unknown) date) normal unknown) (unknown) (no (unknown) (unknown) Tinnitus (-2011) (units (unknown) date) unknown) (unknown) (no (unknown) (unknown) To lisinopril 10 (units (unknown) date) mg PO DAILY 90 unknown) tabs 3RF (unknown) (no (unknown) (unknown) Tobacco + (units (unkn own) date) Substance Use unknown) (unknown) (no (unknown) (unknown) Tobacco Status (units (unknown) date) unknown) (unknown) (no (unknown) (unknown) Visit Reasons: (units (unknown) date) Annual physical unknown) (unknown) (no (unknown) (unknown) Vitals (units (unkno wn) date) unknown) (unknown) (no (unknown) (unknown) We saw the (units (unk nown) date) patient last about unknown) 1 year ago. At that time labs and blood pressure (unknown) (no (unknown) (unknown) Weight 65.317 kg (units (unknown) date) unknown) (unknown) (no (unknown) (unknown) XR DEXA axial (units (u nknown) date) skeleton 1 Week unknown) M85.80 - Other specified disorders of bone density (unknown) (no (unknown) (unknown) and structure, (units (unknown) date) unspecified site unknown) (unknown) (no (unknown) (unknown) appropriate, and (units (unknown) date) follow-up on unknown) chronic conditions/medicat ion review shortly after (unknown) (no (unknown) (unknown) atorvastatin (units (u nknown) date) (Lipitor) 10 mg PO unknown) HS 90 tabs 3RF (unknown) (no (unknown) (unknown) atorvastatin 10 (units (unknown) date) mg tablet unknown) (Lipitor) 10 mg PO HS #90 tabs 12/01/22 [Rx Confirmed (unknown) (no (unknown) (unknown) bilaterally (units (un known) date) (grossly) and deep unknown) tendon reflexes 2+ bilaterally (unknown) (no (unknown) (unknown) chronic (units (unkno wn) date) conditions/update unknown) medications. She has not had any recent lab work. (unknown) (no (unknown) (unknown) does not want (units ( unknown) date) shingrix. unknown) (unknown) (no (unknown) (unknown) fit test. She has (units (unknown) date) a history of unknown) osteopenia, last DEXA was in 2018. (unknown) (no (unknown) (unknown) has had Pneumovax (units (unknown) date) 13 and Pneumovax unknown) vaccines completed. (unknown) (no (unknown) (unknown) have occurred. If (units (unknown) date) there are any unknown) questions, please contact the Medical Records (unknown) (no (unknown) (unknown) lab work is done. (units (unknown) date) unknown) (unknown) (no (unknown) (unknown) labs reviewed, NO (units (unknown) date) changes needed. unknown) (unknown) (no (unknown) (unknown) labs which will (units (unknown) date) be: CBC with no unknown) diff, TSH with reflex free T4, lipids, CMP. (unknown) (no (unknown) (unknown) left knee pain (units (unknown) date) seems to be doing unknown) better since she started taking a collagen (unknown) (no (unknown) (unknown) levothyroxine (units ( unknown) date) (Synthroid) TAKE 1 unknown) TABLET DAILY 90 tabs 3RF (unknown) (no (unknown) (unknown) levothyroxine 112 (units (unknown) date) mcg tablet unknown) (Synthroid) See Rx Instructions .Route .COMPLEX #90 (unknown) (no (unknown) (unknown) lisinopril 10 mg (units (unknown) date) tablet 10 mg PO unknown) DAILY #90 tabs 12/01/22 [Rx Confirmed 12/01/22] (unknown) (no (unknown) (unknown) may occur. (units (unk nown) date) Occasional unknown) wrong-word or 'sound-alike' substitutions may have (unknown) (no (unknown) (unknown) measures. (units (unkn own) date) unknown) (unknown) (no (unknown) (unknown) neoplasm of colon (units (unknown) date) unknown) (unknown) (no (unknown) (unknown) nontender (units (unkn own) date) unknown) (unknown) (no (unknown) (unknown) normal (units (unkno wn) date) unknown) (unknown) (no (unknown) (unknown) occurred due to (units (unknown) date) the inherent unknown) limitations of voice recognition software. Please (unknown) (no (unknown) (unknown) penicillin G (units (u nknown) date) [PENICILLIN G] unknown) Allergy (Unknown, Verified 12/01/22 11:12) (unknown) (no (unknown) (unknown) read the note (units ( unknown) date) carefully and unknown) recognize, using context, where these substitutions (unknown) (no (unknown) (unknown) recommendations, (units (unknown) date) including unknown) potentially scheduling her for a visit to review (unknown) (no (unknown) (unknown) results in detail (units (unknown) date) if indicated. unknown) (unknown) (no (unknown) (unknown) same. (units (unkno wn) date) unknown) (unknown) (no (unknown) (unknown) software. 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 (units (un known) date) unknown) (unknown) (no (unknown) (unknown) tabs 12/01/22 [Rx (units (unknown) date) Confirmed unknown) 12/01/22] (unknown) (no (unknown) (unknown) triamterene 75 (units (unknown) date) mg-hydrochlorothia unknown) zide 50 mg tablet See Rx Instructions .Route (unknown) (no (unknown) (unknown) triamterene-hydro (units (unknown) date) chlorothiazid unknown) 75-50 mg TAKE 1 TABLET DAILY 90 tabs 3RF (unknown) (no (unknown) (unknown) vaccine. (units (unkno wn) date) unknown) (unknown) (no (unknown) (unknown) varicella-zoster (units (unknown) date) glycoE vacc-AS01B unknown) adj(PF) 50 mcg/0.5 mL IM susp, kit (Shingrix (unknown) (no (unknown) (unknown) waiting for last (units (unknown) date) covid booster unknown) since she had covid. (unknown) (no (unknown) (unknown) [place] date[place].? unknown) (unknown) (no (unknown) (unknown) were stable and (units (unknown) date) we maintained her unknown) regimen as it was. (unknown) (no (unknown) (unknown) whom she spends (units (unknown) date) time and she unknown) recently got a new puppy.? Spends a lot of time Result panel 37 (unknown) (no (unknown) (unknown) (no value) (units (unk nown) date) unknown) (unknown) (no (unknown) (unknown) (1) Dyslipidemia: (units (unknown) date) unknown) (unknown) (no (unknown) (unknown) (2) (units (unkno wn) date) Hypothyroidism: unknown) (unknown) (no (unknown) (unknown) (3) Essential (units ( unknown) date) hypertension: unknown) (unknown) (no (unknown) (unknown) (4) Osteopenia: (units (unknown) date) unknown) (unknown) (no (unknown) (unknown) (5) Colon cancer (units (unknown) date) screening: unknown) (unknown) (no (unknown) (unknown) (PF)) 0.5 ml IM (units (unknown) date) ONCE #1 ea unknown) 11/26/21 [Rx Confirmed 12/01/22] (unknown) (no (unknown) (unknown) .COMPLEX #90 tabs (units (unknown) date) 12/01/22 [Rx unknown) Confirmed 12/01/22] (unknown) (no (unknown) (unknown) [id number] (units (unkn own) date) unknown) (unknown) (no (unknown) (unknown) 12/01/22 (units (unkno wn) date) unknown) (unknown) (no (unknown) (unknown) 12/01/22] (units (unkn own) date) unknown) (unknown) (no (unknown) (unknown) 12/06/22 1141 (units ( unknown) date) unknown) (unknown) (no (unknown) (unknown) 11:13 (units (unkno wn) date) unknown) (unknown) (no (unknown) (unknown) 72 yo female (units (u nknown) date) presents today for unknown) annual [facility]. (unknown) (no (unknown) (unknown) 72-year-old (units (un known) date) female presents unknown) for annual visit to follow-up on lab work and (unknown) (no (unknown) (unknown) Affect: normal (units (unknown) date) affect unknown) (unknown) (no (unknown) (unknown) Age/Sex: 72 / F (units (unknown) date) Date of Service: unknown) (unknown) (no (unknown) (unknown) All systems (units (un known) date) reviewed + are unknown) unremarkable except as noted in HPI and below (unknown) (no (unknown) (unknown) Allergies (units (unkn own) date) unknown) (unknown) (no (unknown) (unknown) [place], [place] (units ( unknown) date) [id number] unknown) (unknown) (no (unknown) (unknown) Anesthesia (units (unk nown) date) unknown) (unknown) (no (unknown) (unknown) Appearance: (units (un known) date) grossly normal unknown) (unknown) (no (unknown) (unknown) Assessment + Plan (units (unknown) date) unknown) (unknown) (no (unknown) (unknown) Asthma (units (unkno wn) date) unknown) (unknown) (no (unknown) (unknown) Attending Dr: (units ( unknown) date) Kareem ERIC unknown) (unknown) (no (unknown) (unknown) Attitude: (units (unkn own) date) cooperative unknown) (unknown) (no (unknown) (unknown) Auscultation: (units ( unknown) date) clear to unknown) auscultation bilaterally (unknown) (no (unknown) (unknown) BMI 22.8 (units (unkno wn) date) unknown) (unknown) (no (unknown) (unknown) BP 120/80 (units (unkn own) date) unknown) (unknown) (no (unknown) (unknown) Blood Pressure (units (unknown) date) Location Lt unknown) brachial (unknown) (no (unknown) (unknown) Brother Age: 64 (units (unknown) date) Hypertension unknown) (unknown) (no (unknown) (unknown) Brother Age: 69 (units (unknown) date) Alcoholic unknown) (unknown) (no (unknown) (unknown) Cardio (units (unkno wn) date) unknown) (unknown) (no (unknown) (unknown) Carotids: no (units (u nknown) date) bruits unknown) (unknown) (no (unknown) (unknown) Changed (units (unkno wn) date) unknown) (unknown) (no (unknown) (unknown) Chicken pox (units (un known) date) (-1960) unknown) (unknown) (no (unknown) (unknown) Chief Complaint (units (unknown) date) unknown) (unknown) (no (unknown) (unknown) Chief Complaint: (units (unknown) date) Follow-up lab unknown) work/chronic conditions (unknown) (no (unknown) (unknown) Cognition: normal (units (unknown) date) cognition unknown) (unknown) (no (unknown) (unknown) Const (units (unkno wn) date) unknown) (unknown) (no (unknown) (unknown) Continue regimen. (units (unknown) date) unknown) (unknown) (no (unknown) (unknown) : 1950 (units (unknown) date) Acct:[id number] unknown) (unknown) (no (unknown) (unknown) Denies any major (units (unknown) date) changes in her unknown) health since we saw her last.? States that her (unknown) (no (unknown) (unknown) Dept at (units (unkno wn) date) . unknown) (unknown) (no (unknown) (unknown) Details: (units (unkno wn) date) unknown) (unknown) (no (unknown) (unknown) Documented By: (units (unknown) date) Kareem Sanchez unknown) 12/01/22 0743 (unknown) (no (unknown) (unknown) Due for mammogram (units (unknown) date) and is advised to unknown) schedule.? Declines colonoscopy but agrees (unknown) (no (unknown) (unknown) Dyslipidemia (units (u nknown) date) unknown) (unknown) (no (unknown) (unknown) Dyslipidemia:? (units (unknown) date) Lipid profile unknown) favorable, continue same.? (unknown) (no (unknown) (unknown) Ears: hearing (units ( unknown) date) grossly normal unknown) bilaterally, TM's normal bilaterally and EAC's (unknown) (no (unknown) (unknown) Effort + (units (unkno wn) date) Inspection: normal unknown) respiratory effort (unknown) (no (unknown) (unknown) Exam (units (unkno wn) date) unknown) (unknown) (no (unknown) (unknown) Extrem (units (unkno wn) date) unknown) (unknown) (no (unknown) (unknown) Eyes (units (unkno wn) date) unknown) (unknown) (no (unknown) (unknown) Family History (units (unknown) date) (Reviewed 12/06/22 unknown) @ 11:31 by JEANETH Calvin) (unknown) (no (unknown) (unknown) Family Practice (units (unknown) date) Office Visit unknown) (unknown) (no (unknown) (unknown) Father (units (unknown) date) Cancer unknown) (unknown) (no (unknown) (unknown) Fecal (units (unkno wn) date) Immunochemical unknown) Test 1 Week Z12.11 - Encounter for screening for malignant (unknown) (no (unknown) (unknown) [facility]) (unknown) (no (unknown) (unknown) Fractures (units (unkn own) date) unknown) (unknown) (no (unknown) (unknown) From lisinopril (units (unknown) date) TAKE 1 TABLET unknown) DAILY 90 tabs 0RF (unknown) (no (unknown) (unknown) GI UPSET (units (unkno wn) date) unknown) (unknown) (no (unknown) (unknown) GI (units (unkno wn) date) unknown) (unknown) (no (unknown) (unknown) Gait: normal gait (units (unknown) date) unknown) (unknown) (no (unknown) (unknown) General: (units (unkno wn) date) appearance normal, unknown) both eyes and all related structures (unknown) (no (unknown) (unknown) General: (units (unkno wn) date) cooperative and no unknown) acute distress (unknown) (no (unknown) (unknown) General: no (units (un known) date) rashes or lesions unknown) noted, elasticity normal and turgor normal (unknown) (no (unknown) (unknown) General: normal (units (unknown) date) to inspection and unknown) no edema (unknown) (no (unknown) (unknown) General: patient (units (unknown) date) alert, patient unknown) awake, patient oriented x3, CN's II-XI intact (unknown) (no (unknown) (unknown) Grandfather (units (un known) date) Heart unknown) disease (unknown) (no (unknown) (unknown) Grandmother (units (un known) date) Heart unknown) disease (unknown) (no (unknown) (unknown) HENMT (units (unkno wn) date) unknown) (unknown) (no (unknown) (unknown) HPI (units (unkno wn) date) unknown) (unknown) (no (unknown) (unknown) Head: normal to (units (unknown) date) inspection, unknown) normocephalic and atraumatic (unknown) (no (unknown) (unknown) Heart Sounds: S1 (units (unknown) date) normal, S2 normal, unknown) normal S1 and S2 and no murmurs (unknown) (no (unknown) (unknown) Heart disease (units ( unknown) date) unknown) (unknown) (no (unknown) (unknown) Height 168.91 cm (units (unknown) date) unknown) (unknown) (no (unknown) (unknown) High cholesterol (units (unknown) date) unknown) (unknown) (no (unknown) (unknown) History of (units (unk nown) date) tonsillectomy unknown) (-1953) (unknown) (no (unknown) (unknown) Hyperlipidemia (units (unknown) date) unknown) (unknown) (no (unknown) (unknown) Hypertension (units (u nknown) date) () unknown) (unknown) (no (unknown) (unknown) Hypertension (units (u nknown) date) unknown) (unknown) (no (unknown) (unknown) Hypertension:? (units (unknown) date) Blood pressure has unknown) generally been adequately controlled.? (unknown) (no (unknown) (unknown) Hyperthyroidism (units (unknown) date) unknown) (unknown) (no (unknown) (unknown) Hypochondria (units (u nknown) date) unknown) (unknown) (no (unknown) (unknown) Hypothyroidism (units (unknown) date) type: unspecified unknown) Qualified Code(s): E03.9 (unknown) (no (unknown) (unknown) Hypothyroidism, (units (unknown) date) unspecified unknown) (unknown) (no (unknown) (unknown) Hypothyroidism: (units (unknown) date) TSH normal, unknown) continue same.? (unknown) (no (unknown) (unknown) Inspection: (units (un known) date) normal to unknown) inspection (unknown) (no (unknown) (unknown) Intake Note: (units (u nknown) date) unknown) (unknown) (no (unknown) (unknown) Intake performed (units (unknown) date) by: Sara Meyer unknown) (unknown) (no (unknown) (unknown) Intake (units (unkno wn) date) unknown) (unknown) (no (unknown) (unknown) Intake- Clincial (units (unknown) date) Staff unknown) (unknown) (no (unknown) (unknown) Judgment: (units (unkn own) date) judgment good unknown) (unknown) (no (unknown) (unknown) Lab work (units (unkno wn) date) otherwise not unknown) highly remarkable.? ALT is minimally elevated, with high (unknown) (no (unknown) (unknown) Last Menstural (units (unknown) date) Cycle + Details unknown) (unknown) (no (unknown) (unknown) Loc: [facility] (units (unkno wn) date) unknown) (unknown) (no (unknown) (unknown) [place] (-1960) (units (unknown) date) unknown) (unknown) (no (unknown) (unknown) Medical History (units (unknown) date) (Reviewed 12/06/22 unknown) @ 11:31 by JEANETH Calvin) (unknown) (no (unknown) (unknown) Medications (units (un known) date) unknown) (unknown) (no (unknown) (unknown) Medications: (units (u nknown) date) unknown) (unknown) (no (unknown) (unknown) Mental Status: (units (unknown) date) mental status unknown) grossly normal (unknown) (no (unknown) (unknown) Mood: congruent (units (unknown) date) mood unknown) (unknown) (no (unknown) (unknown) Mother (units (unknown) date) Diabetes mellitus unknown) (unknown) (no (unknown) (unknown) Motor: muscle (units ( unknown) date) tone normal unknown) throughout (unknown) (no (unknown) (unknown) Mouth: oral (units (un known) date) mucosae normal and unknown) oropharynx normal (unknown) (no (unknown) (unknown) Neck mass: No (units ( unknown) date) unknown) (unknown) (no (unknown) (unknown) Neck (units (unkno wn) date) unknown) (unknown) (no (unknown) (unknown) Neck: normal (units (u nknown) date) visual inspection unknown) and no lymphadenopathy (unknown) (no (unknown) (unknown) Neuro (units (unkno wn) date) unknown) (unknown) (no (unknown) (unknown) Nose: external (units (unknown) date) nose normal and unknown) nasal mucous membranes and turbinates normal (unknown) (no (unknown) (unknown) Orders (units (unkno wn) date) unknown) (unknown) (no (unknown) (unknown) Orders: (units (unkno wn) date) unknown) (unknown) (no (unknown) (unknown) Osteopenia (units (unk nown) date) location: unknown) unspecified Qualified Code(s): M85.80 - Other (unknown) (no (unknown) (unknown) Osteopenia (units (unk nown) date) unknown) (unknown) (no (unknown) (unknown) Osteopenia:? DEXA (units (unknown) date) scan was ordered unknown) last year but she did not get this done; we (unknown) (no (unknown) (unknown) Osteoporosis (units (u nknown) date) () unknown) (unknown) (no (unknown) (unknown) Other Menstrual (units (unknown) date) Period: unknown) Postmenopausal (unknown) (no (unknown) (unknown) Ovarian cyst (units (u nknown) date) () unknown) (unknown) (no (unknown) (unknown) Oxygen Delivery (units (unknown) date) Method room air unknown) (unknown) (no (unknown) (unknown) PFSH (units (unkno wn) date) unknown) (unknown) (no (unknown) (unknown) Palpation: soft, (units (unknown) date) no unknown) hepatosplenomegaly , no guarding, no hernias, no masses and (unknown) (no (unknown) (unknown) Patient tells me (units (unknown) date) that she is doing unknown) fairly well.? She has a gentleman friend with (unknown) (no (unknown) (unknown) Patient: (units (unkno wn) date) Ela Ramírez L unknown) MR#: M (unknown) (no (unknown) (unknown) Percussion: (units (un known) date) normal to unknown) percussion (unknown) (no (unknown) (unknown) Plan (units (unkno wn) date) unknown) (unknown) (no (unknown) (unknown) Pneumovax 23 (units (u nknown) date) vaccines. unknown) (unknown) (no (unknown) (unknown) Position Sitting (units (unknown) date) unknown) (unknown) (no (unknown) (unknown) Psych (units (unkno wn) date) unknown) (unknown) (no (unknown) (unknown) Pulse 66 (units (unkno wn) date) unknown) (unknown) (no (unknown) (unknown) Pulse Oximetry (units (unknown) date) (%) 99 unknown) (unknown) (no (unknown) (unknown) Pulse Source (units (u nknown) date) Monitor unknown) (unknown) (no (unknown) (unknown) Qualifiers: (units (un known) date) unknown) (unknown) (no (unknown) (unknown) ROS (units (unkno wn) date) unknown) (unknown) (no (unknown) (unknown) Rate: regular (units ( unknown) date) rate unknown) (unknown) (no (unknown) (unknown) Reason For Visit (units (unknown) date) unknown) (unknown) (no (unknown) (unknown) Refilled (units (unkno wn) date) unknown) (unknown) (no (unknown) (unknown) Resp (units (unkno wn) date) unknown) (unknown) (no (unknown) (unknown) Respiration 16 (units (unknown) date) unknown) (unknown) (no (unknown) (unknown) Rhythm: regular (units (unknown) date) rhythm unknown) (unknown) (no (unknown) (unknown) Sensory Exam: no (units (unknown) date) sensory deficits unknown) noted (unknown) (no (unknown) (unknown) Signed By: (units (unk nown) date) <Electronically unknown) signed by Kareem Sanchez> (unknown) (no (unknown) (unknown) Signed (units (unkno wn) date) unknown) (unknown) (no (unknown) (unknown) Sister Age: 54 (units (unknown) date) History of unknown) hysterectomy (unknown) (no (unknown) (unknown) Sister Age: 65 (units (unknown) date) History of unknown) hysterectomy (unknown) (no (unknown) (unknown) Skin (units (unkno wn) date) unknown) (unknown) (no (unknown) (unknown) Smoking Status: (units (unknown) date) Never smoker unknown) (unknown) (no (unknown) (unknown) Speech: speech (units (unknown) date) normal unknown) (unknown) (no (unknown) (unknown) Status post knee (units (unknown) date) surgery (02/22/06) unknown) (unknown) (no (unknown) (unknown) Status post knee (units (unknown) date) surgery (10/07/07) unknown) (unknown) (no (unknown) (unknown) Status post (units (un known) date) ovarian cystectomy unknown) () (unknown) (no (unknown) (unknown) Status post tubal (units (unknown) date) ligation () unknown) (unknown) (no (unknown) (unknown) Status: Acute (units ( unknown) date) unknown) (unknown) (no (unknown) (unknown) Status: None (units (u nknown) date) unknown) (unknown) (no (unknown) (unknown) Stroke (units (unkno wn) date) unknown) (unknown) (no (unknown) (unknown) Surgical History (units (unknown) date) (Reviewed 12/06/22 unknown) @ 11:31 by JEANETH Calvin) (unknown) (no (unknown) (unknown) This note may (units ( unknown) date) have been all or unknown) partially generated using voice recognition (unknown) (no (unknown) (unknown) Thought Content: (units (unknown) date) normal unknown) (unknown) (no (unknown) (unknown) Thought Process: (units (unknown) date) normal unknown) (unknown) (no (unknown) (unknown) Throat: posterior (units (unknown) date) oropharynx normal unknown) (unknown) (no (unknown) (unknown) Thyroid: thyroid (units (unknown) date) normal unknown) (unknown) (no (unknown) (unknown) Tinnitus (-2011) (units (unknown) date) unknown) (unknown) (no (unknown) (unknown) To lisinopril 10 (units (unknown) date) mg PO DAILY 90 unknown) tabs 3RF (unknown) (no (unknown) (unknown) Tobacco + (units (unkn own) date) Substance Use unknown) (unknown) (no (unknown) (unknown) Tobacco Status (units (unknown) date) unknown) (unknown) (no (unknown) (unknown) Visit Reasons: (units (unknown) date) Annual physical unknown) (unknown) (no (unknown) (unknown) Vitals (units (unkno wn) date) unknown) (unknown) (no (unknown) (unknown) We saw the (units (unk nown) date) patient last about unknown) 1 year ago. At that time labs and blood pressure (unknown) (no (unknown) (unknown) Weight 65.317 kg (units (unknown) date) unknown) (unknown) (no (unknown) (unknown) XR DEXA axial (units (u nknown) date) skeleton 1 Week unknown) M85.80 - Other specified disorders of bone density (unknown) (no (unknown) (unknown) abnormality and (units (unknown) date) we will monitor unknown) with annual lab work next year.? Mildly (unknown) (no (unknown) (unknown) actually was ill (units (unknown) date) with COVID 19 and unknown) is waiting the proper period of time prior to (unknown) (no (unknown) (unknown) and follow-up on (units (unknown) date) chronic unknown) conditions/medicat ion review shortly after lab work is (unknown) (no (unknown) (unknown) and structure, (units (unknown) date) unspecified site unknown) (unknown) (no (unknown) (unknown) atorvastatin (units (u nknown) date) (Lipitor) 10 mg PO unknown) HS 90 tabs 3RF (unknown) (no (unknown) (unknown) atorvastatin 10 (units (unknown) date) mg tablet unknown) (Lipitor) 10 mg PO HS #90 tabs 12/01/22 [Rx Confirmed (unknown) (no (unknown) (unknown) bilaterally (units (un known) date) (grossly) and deep unknown) tendon reflexes 2+ bilaterally (unknown) (no (unknown) (unknown) chronic (units (unkno wn) date) conditions/update unknown) medications. She has not had any recent lab work. (unknown) (no (unknown) (unknown) decreased WBC (units ( unknown) date) stable.? Next unknown) routine lab work due in 1 year, fasting labs which (unknown) (no (unknown) (unknown) done. (units (unkno wn) date) unknown) (unknown) (no (unknown) (unknown) getting the (units (un known) date) booster.? She unknown) declines Shingrix vaccine.? Has had Pneumovax 13 and (unknown) (no (unknown) (unknown) have occurred. If (units (unknown) date) there are any unknown) questions, please contact the Medical Records (unknown) (no (unknown) (unknown) left knee pain (units (unknown) date) seems to be doing unknown) better since she started taking a collagen (unknown) (no (unknown) (unknown) levothyroxine (units ( unknown) date) (Synthroid) TAKE 1 unknown) TABLET DAILY 90 tabs 3RF (unknown) (no (unknown) (unknown) levothyroxine 112 (units (unknown) date) mcg tablet unknown) (Synthroid) See Rx Instructions .Route .COMPLEX #90 (unknown) (no (unknown) (unknown) lisinopril 10 mg (units (unknown) date) tablet 10 mg PO unknown) DAILY #90 tabs 12/01/22 [Rx Confirmed 12/01/22] (unknown) (no (unknown) (unknown) may occur. (units (unk nown) date) Occasional unknown) wrong-word or 'sound-alike' substitutions may have (unknown) (no (unknown) (unknown) neoplasm of colon (units (unknown) date) unknown) (unknown) (no (unknown) (unknown) nontender (units (unkn own) date) unknown) (unknown) (no (unknown) (unknown) normal AST which (units (unknown) date) she has not had in unknown) the past.? We discussed options and agreed (unknown) (no (unknown) (unknown) normal (units (unkno wn) date) unknown) (unknown) (no (unknown) (unknown) occurred due to (units (unknown) date) the inherent unknown) limitations of voice recognition software. Please (unknown) (no (unknown) (unknown) penicillin G (units (u nknown) date) [PENICILLIN G] unknown) Allergy (Unknown, Verified 12/01/22 11:12) (unknown) (no (unknown) (unknown) read the note (units ( unknown) date) carefully and unknown) recognize, using context, where these substitutions (unknown) (no (unknown) (unknown) schedule a visit (units (unknown) date) for review of lab unknown) work, focused physical exam as appropriate, (unknown) (no (unknown) (unknown) series and 1 (units (u nknown) date) booster.? She unknown) intends to get the 2nd COVID 19 booster but she (unknown) (no (unknown) (unknown) software. 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 (units (un known) date) unknown) (unknown) (no (unknown) (unknown) tabs 12/01/22 [Rx (units (unknown) date) Confirmed unknown) 12/01/22] (unknown) (no (unknown) (unknown) to fit test which (units (unknown) date) was ordered.? unknown) Patient completed primary COVID-19 vaccine (unknown) (no (unknown) (unknown) to hold off on (units (unknown) date) any action at this unknown) point given the minimal nature of the (unknown) (no (unknown) (unknown) triamterene 75 (units (unknown) date) mg-hydrochlorothia unknown) zide 50 mg tablet See Rx Instructions .Route (unknown) (no (unknown) (unknown) triamterene-hydro (units (unknown) date) chlorothiazid unknown) 75-50 mg TAKE 1 TABLET DAILY 90 tabs 3RF (unknown) (no (unknown) (unknown) varicella-zoster (units (unknown) date) glycoE vacc-AS01B unknown) adj(PF) 50 mcg/0.5 mL IM susp, kit (Shingrix (unknown) (no (unknown) (unknown) [place]units [place] date[place].? unknown) (unknown) (no (unknown) (unknown) were stable and (units (unknown) date) we maintained her unknown) regimen as it was. (unknown) (no (unknown) (unknown) whom she spends (units (unknown) date) time and she unknown) recently got a new puppy.? Spends a lot of time (unknown) (no (unknown) (unknown) will be:? CBC (units ( unknown) date) with no diff, TSH unknown) with reflex free T4, lipids, CMP.? Patient will (unknown) (no (unknown) (unknown) will reorder this (units (unknown) date) for her to get unknown) done this year.? Will contact her with results. Result panel 38 (unknown) (no (unknown) (unknown) (no value) (units (unk nown) date) unknown) (unknown) (no (unknown) (unknown) # Denotes (units (unkn own) date) dissimilar scan unknown) types or analysis methods (unknown) (no (unknown) (unknown) (-0.5%)# (units (unkno wn) date) unknown) (unknown) (no (unknown) (unknown) (-5.9%)# (units (unkno wn) date) unknown) (unknown) (no (unknown) (unknown) (-7.4%)# (units (unkno wn) date) unknown) (unknown) (no (unknown) (unknown) (1) FRAX(R) (units (un known) date) Version 3.08. unknown) Fracture probability calculated for an (unknown) (no (unknown) (unknown) *Denotes (units (unkno wn) date) significance at unknown) 95% confidence level, LSC for AP Spine (unknown) (no (unknown) (unknown) / 25%-50% (units (unkn own) date) unknown) (unknown) (no (unknown) (unknown) 12/22/2022 72 (units ( unknown) date) 0.799 -1.2 -0.064 unknown) (-7.4%)# -0.064 (unknown) (no (unknown) (unknown) 12/22/2022 72 (units ( unknown) date) 0.818 -1.0 -0.051 unknown) (-5.9%)# -0.051 (unknown) (no (unknown) (unknown) 12/22/2022 72 (units ( unknown) date) 0.988 -0.5 -0.005 unknown) (-0.5%)# -0.005 (unknown) (no (unknown) (unknown) 12/22/22 (units (unkno wn) date) unknown) (unknown) (no (unknown) (unknown) 04/30/2018 68 (units ( unknown) date) 0.863 -0.6 unknown) (unknown) (no (unknown) (unknown) 04/30/2018 68 (units ( unknown) date) 0.870 -0.6 unknown) (unknown) (no (unknown) (unknown) 04/30/2018 68 (units ( unknown) date) 0.993 -0.5 unknown) (unknown) (no (unknown) (unknown) 10-year Fracture (units (unknown) date) Risk(1): unknown) (unknown) (no (unknown) (unknown) [address] [place] [address] (units (unknown) date) unknown) (unknown) (no (unknown) (unknown) 15% of breast (units ( unknown) date) malignancies will unknown) not be visualized mammographically. In the (unknown) (no (unknown) (unknown) 4.2% and her 10 (units (unknown) date) year risk is 3.1%. unknown) According to the ACR, ACS, and NCCN (unknown) (no (unknown) (unknown) 05/05/2019 (units (unkn own) date) mammogram - [place]) Health. (unknown) (no (unknown) (unknown) = 0.022 g/cm2, (units (unknown) date) LSC for Total Hip unknown) = 0.027 g/cm2 (unknown) (no (unknown) (unknown) ACR BI-RADS (units (un known) date) Category 1: unknown) Negative 3341F (unknown) (no (unknown) (unknown) AP Spine (L1-L4) (units (unknown) date) unknown) (unknown) (no (unknown) (unknown) AP Spine(L1-L4) (units (unknown) date) 0.988 -0.5 1.7 unknown) Normal (unknown) (no (unknown) (unknown) Accession Number: (units (unknown) date) [id number] unknown) (unknown) (no (unknown) (unknown) Accession Number: (units (unknown) date) [id number] unknown) (unknown) (no (unknown) (unknown) Accession number: (units (unknown) date) [id number] unknown) (unknown) (no (unknown) (unknown) Age/Sex: 72 / F (units (unknown) date) Date of Service: unknown) (unknown) (no (unknown) (unknown) [place], [place] (units ( unknown) date) [id number] unknown) (unknown) (no (unknown) (unknown) Approximately (units ( unknown) date) unknown) (unknown) (no (unknown) (unknown) BILATERAL DIGITAL (units (unknown) date) SCREENING unknown) MAMMOGRAM 3D/2D WITH CAD: 12/22/2022 (unknown) (no (unknown) (unknown) Based on the [place] (units (unknown) date) [place] model (a unknown) risk assessment model) the patient's lifetime (unknown) (no (unknown) (unknown) Bone Density: (units ( unknown) date) unknown) (unknown) (no (unknown) (unknown) CLINICAL: Routine (units (unknown) date) screening. Family unknown) history of breast cancer. (unknown) (no (unknown) (unknown) Comparison is (units ( unknown) date) made to exams unknown) dated: 07/16/2021 mammogram, 07/11/2020 mammogram, (unknown) (no (unknown) (unknown) Current study was (units (unknown) date) also evaluated unknown) with a Computer Aided Detection (CAD) system. (unknown) (no (unknown) (unknown) : 1950 (units (unknown) date) Acct:[id number] unknown) (unknown) (no (unknown) (unknown) Date g/cm2 vs (units ( unknown) date) Baseline vs unknown) Previous (unknown) (no (unknown) (unknown) Dexa Report (units (un known) date) unknown) (unknown) (no (unknown) (unknown) Discussion: BONE (units (unknown) date) DENSITY IS LOW AT unknown) ONE OR MORE SKELETAL SITES. (unknown) (no (unknown) (unknown) Electronically (units (unknown) date) Signed By: Trace rosas) Nohemy Ibarra M.D. (unknown) (no (unknown) (unknown) Exam Date: December (units (unknown) date) 2022 unknown) (unknown) (no (unknown) (unknown) Femoral Neck (units (u nknown) date) (Left) 0.682 -1.5 unknown) 0.5 Osteopenia (unknown) (no (unknown) (unknown) Femoral Neck (units (u nknown) date) (Right) 0.628 -2.0 unknown) 0.0 Osteopenia (unknown) (no (unknown) (unknown) Femoral Neck (units (u nknown) date) T-score. The unknown) patient has an estimated ten-year (unknown) (no (unknown) (unknown) Follow-Up: (units (unk nown) date) Consider repeating unknown) this study in 2 to 3 years to (unknown) (no (unknown) (unknown) Hip Fracture 2.6% (units (unknown) date) unknown) (unknown) (no (unknown) (unknown) However, all (units (u nknown) date) treatment unknown) decisions require clinical judgment and (unknown) (no (unknown) (unknown) IMPRESSION: (units (un known) date) NEGATIVE unknown) (unknown) (no (unknown) (unknown) Impression: The (units (unknown) date) patient has low unknown) bone mass, based on the Right (unknown) (no (unknown) (unknown) Indication: (units (un known) date) postmenopausal; unknown) screening for osteoporosis; (unknown) (no (unknown) (unknown) [facility] (units (unknown) date) unknown) (unknown) (no (unknown) (unknown) Loc: RAD (units (unkno wn) date) unknown) (unknown) (no (unknown) (unknown) [id number] (units (unk nown) date) unknown) (unknown) (no (unknown) (unknown) Major (units (unkno wn) date) Osteoporotic unknown) Fracture 12% (unknown) (no (unknown) (unknown) Mammography (units (un known) date) Report unknown) (unknown) (no (unknown) (unknown) NOTE: For (units (unkn own) date) mammograms, a unknown) report in lay terms will be sent to the patient. (unknown) (no (unknown) (unknown) No significant (units (unknown) date) masses, unknown) calcifications, or other findings are seen in either (unknown) (no (unknown) (unknown) Normal (T-score (units (unknown) date) at or above -1.0), unknown) (unknown) (no (unknown) (unknown) Ordering (units (unkno wn) date) Provider: unknown) Kareem Sanchez (unknown) (no (unknown) (unknown) Osteopenia (units (unk nown) date) (T-score between unknown) -1.0 and -2.5), or (unknown) (no (unknown) (unknown) Osteoporosis (units (u nknown) date) (T-score at or unknown) below -2.5). (unknown) (no (unknown) (unknown) Patient: (units (unkno wn) date) Ela Ramírez L unknown) MR#: (unknown) (no (unknown) (unknown) Previous Exams: (units (unknown) date) unknown) (unknown) (no (unknown) (unknown) Procedure: MM (units ( unknown) date) screening mammo BI unknown) (unknown) (no (unknown) (unknown) Procedure: XR (units ( unknown) date) DEXA axial unknown) skeleton (unknown) (no (unknown) (unknown) Referring (units (unkn own) date) Provider: TRACIE, unknown) KAREEM (unknown) (no (unknown) (unknown) Region BMD (units (unk nown) date) T-score Z-score unknown) Classification (unknown) (no (unknown) (unknown) Region Exam Age (units (unknown) date) BMD T-score BMD unknown) Change BMD Change (unknown) (no (unknown) (unknown) Reported Risk (units ( unknown) date) Factors: unknown) (unknown) (no (unknown) (unknown) Reported by: Kathy (units (unknown) dateHanh Armendariz M.D. on unknown) 12/22/2022 10:48:00 AM. (unknown) (no (unknown) (unknown) Signed (units (unkno wn) date) unknown) (unknown) (no (unknown) (unknown) Study: Bone (units (un known) date) densitometry was unknown) performed. (unknown) (no (unknown) (unknown) The patient's (units ( unknown) date) 10-year risk of unknown) fracture as calculated by FRAX is (unknown) (no (unknown) (unknown) There are (units (unkn own) date) scattered areas of unknown) fibroglandular density in both breasts (category b (unknown) (no (unknown) (unknown) There has been no (units (unknown) date) significant unknown) interval change. (unknown) (no (unknown) (unknown) There is no (units (unk nown) date) mammographic unknown) evidence of malignancy. A 1 year screening mammogram is (unknown) (no (unknown) (unknown) This exam was (units ( unknown) date) interpreted at unknown) Station ID: [id number]. (unknown) (no (unknown) (unknown) This patient's (units (unknown) date) lowest T-score is unknown) low at one or more skeletal (unknown) (no (unknown) (unknown) Total Hip (Left) (units (unknown) date) 0.818 -1.0 0.6 unknown) Normal (unknown) (no (unknown) (unknown) Total Hip (Right) (units (unknown) date) 0.799 -1.2 0.5 unknown) Osteopenia (unknown) (no (unknown) (unknown) Total Hip Mean (units (unknown) date) 0.809 -1.1 0.6 unknown) Osteopenia (unknown) (no (unknown) (unknown) Total Hip(Left) (units (unknown) date) unknown) (unknown) (no (unknown) (unknown) Total Hip(Right) (units (unknown) date) unknown) (unknown) (no (unknown) (unknown) [place] (), (units (unknown) date) Neck BMD=0.628, unknown) BMI=23.2 (unknown) (no (unknown) (unknown) World Health (units (u nknown) date) Organization unknown) criteria for BMD impression (unknown) (no (unknown) (unknown) a palpable breast (units (unknown) date) mass, a negative unknown) mammogram must not discourage biopsy of a (unknown) (no (unknown) (unknown) and appropriate (units (unknown) date) weight-bearing unknown) exercise). (unknown) (no (unknown) (unknown) and (units (unkno wn) date) unknown) (unknown) (no (unknown) (unknown) annual breast MRI (units (unknown) date) exam along with unknown) mammogram is recommended if the patient's (unknown) (no (unknown) (unknown) aty/penrad:12/23/19 (units (unknown) date) 23 14:33:27 unknown) (unknown) (no (unknown) (unknown) breast. (units (unkno wn) date) unknown) (unknown) (no (unknown) (unknown) captured in the (units (unknown) date) FRAX model (e.g., unknown) frailty, falls, vitamin D (unknown) (no (unknown) (unknown) classify patients (units (unknown) date) as: unknown) (unknown) (no (unknown) (unknown) clinical (units (unkno wn) date) indication. unknown) (unknown) (no (unknown) (unknown) clinically (units (unk nown) date) unknown) (unknown) (no (unknown) (unknown) consideration of (units (unknown) date) individual patient unknown) factors, including patient (unknown) (no (unknown) (unknown) decline in bone (units (unknown) date) density) and unknown) possible under or overestimation (unknown) (no (unknown) (unknown) deficiency, (units (un known) date) increased bone unknown) turnover, interval significant (unknown) (no (unknown) (unknown) for ?low bone (units ( unknown) date) mass? (T-score unknown) between -1.0 and -2.5). (unknown) (no (unknown) (unknown) glandular (units (unkn own) date) tissue). unknown) (unknown) (no (unknown) (unknown) guidelines, an (units (unknown) date) unknown) (unknown) (no (unknown) (unknown) is 20% or (units (unkn own) date) greater. unknown) (unknown) (no (unknown) (unknown) less than the (units ( unknown) date) threshold where unknown) pharmacological therapy is (unknown) (no (unknown) (unknown) letter sent: (units (u nknown) date) Normal Exam unknown) (unknown) (no (unknown) (unknown) lifestyle (good (units (unknown) date) nutrition with unknown) adequate calcium and vitamin D, (unknown) (no (unknown) (unknown) lifetime risk (units ( unknown) date) unknown) (unknown) (no (unknown) (unknown) major fracture of (units (unknown) date) 12%, based on the unknown) WHO FRAX algorithm. No (unknown) (no (unknown) (unknown) management of (units ( unknown) date) unknown) (unknown) (no (unknown) (unknown) of fracture risk (units (unknown) date) by FRAX. The unknown) patient should follow a healthful (unknown) (no (unknown) (unknown) patient has (units (un known) date) received unknown) treatment. (unknown) (no (unknown) (unknown) preferences, (units (u nknown) date) comorbidities, unknown) previous drug use, risk factors not (unknown) (no (unknown) (unknown) reassess this (units ( unknown) date) patient's status, unknown) or sooner if there is some new (unknown) (no (unknown) (unknown) recommended by (units (unknown) date) the National unknown) Osteoporosis Foundation (NOF). (unknown) (no (unknown) (unknown) recommended. (units (u nknown) date) unknown) (unknown) (no (unknown) (unknown) risk is (units (unkno wn) date) unknown) (unknown) (no (unknown) (unknown) risk of hip (units (un known) date) fracture of 2.6% unknown) and an estimated ten-year risk of (unknown) (no (unknown) (unknown) significant bone (units (unknown) date) loss was observed. unknown) (unknown) (no (unknown) (unknown) sites. It meets (units (unknown) date) the World Health unknown) Organization's (WHO) criteria (unknown) (no (unknown) (unknown) suspicious (units (unk nown) date) lesion. unknown) (unknown) (no (unknown) (unknown) untreated (units (unkn own) date) patient. Fracture unknown) probability may be lower if the Result panel 39 (unknown) (no date) (unknown) (unknown) Positive (units (unkn own) unknown) (unknown) (no date) (unknown) (unknown) Positive (units 26737 -3 unknown) Result panel 40 (unknown) (no date) (unknown) (unknown) Positive (units (unkn own) unknown) (unknown) (no date) (unknown) (unknown) Positive (units (unkn own) unknown) Social History date description facility 2022-12-01 00:00 Never smoked tobacco (finding) [facility] Vital Signs date measurement value units 2022-12-01 00:00 BMI 22.8 kg/m2 2022-12-01 00:00 BP_diastolic 80 mmHg 2022-12-01 00:00 BP_systolic 120 mmHg 2022-12-01 00:00 heart_rate 66 /min 2022-12-01 00:00 height_metric 168.91 cm 2022-12-01 00:00 height_standard 66.5 in 2022-12-01 00:00 o2_saturation 99 % 2022-12-01 00:00 respiration_rate 16 /min 2022-12-01 00:00 weight_metric 65.31 kg 2022-12-01 00:00 weight_standard 143.98 lb
--- NOTE | 2022-12-24 11:25 | ED Physician Documentation ---
PD HPI ABD PAIN - Stated complaint Stated Complaint: ABD PX - Chief complaint Chief Complaint: Abd Pain - History obtained from History obtained from: Patient - History of Present Illness Timing - onset: How many days ago (5) Timing - duration: Days (5) Timing - details: Gradual onset, Still present Quality: Cramping, Aching, Pain Location: RLQ Radiation: No: Lower back, Right flank Improved by: Laying still Worsened by: Eating, Moving, Palpation. No: Breathing Associated symptoms: Nausea. No: Fever, Vomiting, Diarrhea, Constipation, Dysuria Similar symptoms before: Has not had sx before Recently seen: Clinic (went to Walk In clinic first and referred to ER.) Review of Systems Constitutional: denies: Fever, Chills Nose: denies: Rhinorrhea / runny nose, Congestion Throat: denies: Sore throat Respiratory: denies: Cough GI: reports: Abdominal Pain, Nausea. denies: Vomiting, Diarrhea : denies: Dysuria PD PAST MEDICAL HISTORY - Past Medical History Past Medical History: No Cardiovascular: None Respiratory: None Musculoskeletal: None - Past Surgical History Past Surgical History: No - Allergies Allergies/Adverse Reactions: Allergies Allergy/AdvReac Type Severity Reaction Status Date / Time Penicillins Allergy Rash Verified 12/24/22 10:15 - Social History Does the pt smoke?: No Smoking Status: Never smoker PD ED PE NORMAL - Vitals Vital signs reviewed: Yes - General General: Alert and oriented X 3, No acute distress, Well developed/nourished - Neck Neck: Supple, no meningeal sign, No adenopathy - Cardiac Cardiac: RRR, No murmur - Respiratory Respiratory: Clear bilaterally - Abdomen Abdomen: Normal bowel sounds, Soft, Non distended, No organomegaly, Other (The patient is focally tender in the quadrant with in the right lower quadrant with local guarding and some percussion tenderness. No CVA tenderness. The rest of the abdomen is nontender. Bowel sounds are diminished.) - Back Back: No CVA TTP - Derm Derm: Normal color, Warm and dry - Extremities Extremities: No edema, No calf tenderness / cord - Neuro Neuro: Alert and oriented X 3, No motor deficit, Normal speech Results - Vitals Vitals: Vital Signs - 24 hr 12/24/22 12/24/22 10:13 12:15 Temperature 36.7 C 36.8 C Heart Rate 82 68 Respiratory 20 15 Rate Blood Pressure 94/60 99/54 L O2 Saturation 100 100 Oxygen O2 Source Room air - Labs Labs: Laboratory Tests 12/24/22 12/24/22 12/24/22 12:28 12:35 12:35 WBC 10.8 RBC 4.10 L Hgb 12.8 Hct 38.1 MCV 92.9 MCH 31.2 H MCHC 33.6 RDW 11.9 L Plt Count 327 MPV 8.8 Neut # (Auto) 8.9 H Lymph # (Auto) 0.8 L [place] # (Auto) 0.9 Eos # (Auto) 0.1 Baso # (Auto) 0.1 Absolute Nucleated RBC 0.00 Nucleated RBC % 0.0 Sodium 137 Potassium 3.4 L Chloride 96 L Carbon Dioxide 28 Anion Gap 13.0 BUN 18 Creatinine 0.8 Estimated GFR (MDRD) 71 L Glucose 106 H Calcium 10.0 Total Bilirubin 1.2 H AST 27 ALT 39 Alkaline Phosphatase 51 Total Protein 7.8 Albumin 3.8 Globulin 4.0 Albumin/Globulin Ratio 1.0 Lipase 40 Urine Color YELLOW Urine Clarity CLEAR Urine pH 7.0 Ur Specific [place] 1.010 Urine Protein NEGATIVE Urine Glucose (UA) NEGATIVE Urine Ketones NEGATIVE Urine Occult Blood NEGATIVE Urine Nitrite NEGATIVE Urine Bilirubin NEGATIVE Urine Urobilinogen 0.2 (NORMAL) Ur Leukocyte Esterase TRACE H Urine RBC 0-5 Urine WBC 0-3 Ur Squamous Epith Cells FEW Squamous Urine Bacteria Rare Urine Casts 0-2 Hyaline Casts Urine Mucus Few Strands Ur Microscopic Review INDICATED Urine Culture Comments INDICATED PD Medical Decision Making - ED course Complexity details: reviewed results, considered differential, d/w patient Drug Therapy Requiring Monitoring for Toxicity: Patient was given IV fluids and also ketorolac for pain. She had a good improvement in her pain with this. With the findings of the appendicitis and abscess on CT, she was given IV antibiotics as well. Due to allergy to penicillin, I opted for Rocephin and metronidazole. Dr. Bruce for surgery was in concurrence with this. ED course: The patient had onset of right lower abdominal pain 5 days ago. She relates it to after lifting a bag of dog food but started not immediately but a few hours later. Is continued over the last 5 days with peak intensity last night and slightly improved today. However still hurting with activity and movement and eating. Went to the walk-in clinic and referred to the ER. She denies fever or chills. Mild nausea but no vomiting. Normal stools and no difficulty with urination. She did have localized tenderness in the right lower quadrant with some percussion and rebound locally. As such we did opt for a CT scan of the abdomen with concerns for appendicitis or diverticulitis or so as abscess or bleed. Also consideration for just muscular pain but she seems a little more tender. The patient's labs were fairly normal. We did obtain and I reviewed a CBC including white count. Obtained and reviewed were chemistry panel. Obtained and reviewed was a CT of the abdomen. I did see an area of inflammation and localized fluid collection in the right lower quadrant with a calcification concerning for appendicolith. CT reading and discussion with radiologist gave the same impression. The radiologist said that the fluid collection is easily accessible and he would be able to do a drainage tomorrow. Suggested admission with IV antibiotics to help start on the infection and radiologic drainage tomorrow. I talked with Dr. Bruce who is special education associate for surgery and reviewed the findings with him and he agreed to admit the patient to the hospital for said treatment. It talked with the patient and her about the findings and conveyed to them the rationale and reasoning for being hospitalized with IV antibiotics and drainage of the abscess and likely subsequent surgery in the near future once the infection is cleared. This would be easily prone to reinfection. Departure - Departure Disposition: 66 [facility] DC/[facility] Clinical Impression: Right lower quadrant abdominal pain, Appendicitis with peritoneal abscess Condition: Stable Record reviewed to determine appropriate education?: Yes
[2022-12-24] MEDS ORDERED: MORPHINE 2 MG/ML CARPUJECT IVP STA (12:18)
[2022-12-24] MEDS ORDERED: KETOROLAC 15 MG/ML VIAL IVP STA (12:18)
[2022-12-24 12:42] LABS: BASOPHILS # (AUTO) 0.1 10^3/uL (0.0-0.1); BASOPHILS % (AUTO) 0.6 %; EOSINOPHILS # (AUTO) 0.1 10^3/uL (0.0-0.7); EOSINOPHILS % (AUTO) 0.6 %; HCT - HEMATOCRIT 38.1 % (37.0-47.0); HGB - HEMOGLOBIN 12.8 g/dL (12.0-16.0); LYMPHOCYTES # (AUTO) 0.8 10^3/uL (1.5-3.5); LYMPHOCYTES % (AUTO) 7.2 %; MEAN CORPUSCULAR HEMOGLOBIN 31.2 pg (27.0-31.0); MEAN CORPUSCULAR HGB CONC 33.6 g/dL (32.0-36.0); MEAN CORPUSCULAR VOLUME 92.9 fL (81.0-99.0); MEAN PLATELET VOLUME 8.8 fL (7.9-10.8); MONOCYTES # (AUTO) 0.9 10^3/uL (0.0-1.0); MONOCYTES % (AUTO) 8.3 %; NEUTROPHILS # (AUTO) 8.9 10^3/uL (1.5-6.6); NEUTROPHILS % (AUTO) 82.7 %; PLT - PLATELET COUNT 327 10^3/uL (130-450); RED CELL DISTRIBUTION WIDTH 11.9 % (12.0-15.0); WHITE BLOOD COUNT 10.8 x10^3/uL (4.8-10.8)
[2022-12-24 12:54] LABS: ALBUMIN 3.8 g/dL (3.2-5.5); BILIRUBIN,TOTAL 1.2 mg/dL (0.2-1.0); CREATININE 0.8 mg/dL (0.4-1.0); POTASSIUM 3.4 mmol/L (3.5-5.0); TOTAL PROTEIN 7.8 g/dL (6.7-8.2)
[2022-12-24] MEDS ORDERED: iohexoL-300 100 ML VIAL ONE (13:01)
[2022-12-24 13:04] LABS: BILIRUBIN,URINE NEGATIVE (NEGATIVE); GLUCOSE, URINE (UA) NEGATIVE (NEGATIVE); KETONES,URINE (UA) NEGATIVE (NEGATIVE); LEUKOCYTE ESTERASE, URINE TRACE (NEGATIVE); NITRITE,URINE NEGATIVE (NEGATIVE); OCCULT BLOOD,URINE NEGATIVE (NEGATIVE); PROTEIN,URINE NEGATIVE (NEGATIVE); UROBILINOGEN,URINE 0.2 (NORMAL) E.U./dL (NORMAL)
[2022-12-24 13:05] LABS: CLARITY,URINE CLEAR (CLEAR)
[2022-12-24 13:17] LABS: BACTERIA,URINE Rare /HPF (None Seen); CASTS, URINE 0-2 Hyaline Casts /LPF; MUCUS,URINE Few Strands; RBC,URINE 0-5 /HPF (0-5); SQUAMOUS EPITHELIAL CELL,UR FEW Squamous (<= Few); WBC,URINE 0-3 /HPF (0-5)
[2022-12-24] MEDS ORDERED: iohexoL-300 100 ML VIAL IVP ONE (15:01)
--- NOTE | 2022-12-24 15:16 | CT Report ---
PROCEDURE: ABDOMEN/PELVIS W INDICATIONS: right abd pain CONTRAST: 100ml Omnipaque 300 TECHNIQUE: After the administration of contrast, 5 mm thick sections acquired from the diaphragms to the symphys is. 5 mm thick coronal and sagittal reformats were acquired. For radiation dose reduction, the foll owing was used: automated exposure control, adjustment of mA and/or kV according to patient size. COMPARISON: None. FINDINGS: Image quality: Excellent. ABDOMEN: Lung bases: Lung bases are clear. Heart size is normal. Solid organs: Liver and spleen are normal in size and enhancement. Gallbladder is normal. Biliary system is non dilated. Pancreas enhances normally. No adrenal nodules. Kidneys demonstrate normal size and enhancement, without hydronephrosis. Peritoneum and bowel: There is a 3.8 x 4.0 x 5.6 cm complex fluid and gas collection adjacent to the cecum, suspicious for an abscess. Appendix is not well seen but is thought to be sandwiched between the collection and cecum (series 6 image 21). Suspect a appendix: This at the base of the appendix. Bowel loops demonstrate normal caliber. There is a large amount stool in colon. There is a trace am ount of free fluid in the right paracolic gutter. No free air. Nodes and vessels: No retroperitoneal or mesenteric adenopathy by size criteria. Aorta and inferior vena cava are normal in size. Miscellaneous: No ventral hernias. PELVIS: Genitourinary: Bladder wall thickness is normal. Miscellaneous: No inguinal hernias or adenopathy. Bones: No suspicious bony lesions. No vertebral body compression fractures. IMPRESSION: 1. Suspect acute appendicitis with appendiceal perforation. It is difficult to definitively identifie d the appendix amid of inflammatory changes in the right lower quadrant.. A less likely diagnostic po ssibility is perforated right-sided diverticulitis. There is an abscess in the right lower quadrant a djacent to the cecum measuring 3.8 x 4.0 x 5.6 cm. The result was discussed with Dr. Bright in ER. Reviewed by: Luna Vitale MD on 12/24/2022 3:14 PM PST Approved by: Luna Vitale MD on 12/24/2022 3:14 PM PST Station ID: [id number]
[2022-12-24] MEDS ORDERED: cefTRIAXone 1 GM VIAL IVP STA (15:26)
[2022-12-24] MEDS ORDERED: metroNIDAZOLE 500 MG/100 ML 500 MG/100 ML BAG IV ONE (15:27)
[2022-12-24] MEDS ORDERED: SODIUM CHLORIDE FLUSH 0.9% 10 ML SYRINGE IVP PRN (16:32)
[2022-12-24] MEDS ORDERED: oxyCODONE 5 MG TABLET PO PRN (16:32)
[2022-12-24] MEDS ORDERED: ZOLPIDEM 5 MG TABLET PO PRN (16:32)
[2022-12-24] MEDS ORDERED: ONDANSETRON ODT 4 MG TABLET TL PRN (16:32)
[2022-12-24] MEDS ORDERED: HYDROmorphone 0.5 MG/0.5 ML SYRINGE IVP PRN (16:32)
[2022-12-24] MEDS ORDERED: ACETAMINOPHEN 325 MG TABLET PO PRN (16:32)
[2022-12-24] MEDS ORDERED: ONDANSETRON 4 MG/2 ML VIAL IVP PRN (16:32)
[2022-12-24] MEDS ORDERED: ATORVASTATIN 10 MG TABLET PO STA (16:40)
[2022-12-24] MEDS: SODIUM CHLORIDE FLUSH 0.9% 10 ML SYRINGE IVP SCH ×2 (17:29→23:48)
--- NOTE | 2022-12-24 17:33 | HISTORY & PHYSICAL EXAMINATION ---
Chief Complaint - Chief Complaint Chief Complaint: right lower abdominal pain History of Present Illness - History Obtained From Records Reviewed: yes History obtained from: pt Exam Limitations: none - History of Present Illness HPI Comment/Other: right lower quadrant pain x 5 days. tender more recently. feels well otherwise. ct scan 5 cm anterior right lower quadrant abscess adjacent to cecum and location appendix. she states she has had negative fit for colon cancer screening yearly. she is not interested in colonoscopy History - Past Medical History Cardiovascular: reports: None Respiratory: reports: None Musculoskeletal: reports: None MRSA Hx?: No Meds/Allgy - Home Medications Home Medications: Ambulatory Orders Medication Instructions Recorded Confirmed Atorvastatin [Lipitor] 10 mg PO HS 12/24/22 12/24/22 Levothyroxine Sodium [Synthroid] 112 mcg PO DAILY 12/24/22 12/24/22 Lisinopril [Zestril] 10 mg PO DAILY 12/24/22 12/24/22 Triamterene/Hydrochlorothiazid 1 each PO DAILY 12/24/22 12/24/22 [Maxzide 75 mg-50 mg Tablet] - Allergies Allergies/Adverse Reactions: Allergies Allergy/AdvReac Type Severity Reaction Status Date / Time Penicillins Allergy Rash Verified 12/24/22 10:15 Review of Systems - Other Findings Other Findings: 10 pt ros as above otherwise unremarkable Exam - Vital Signs Reviewed Vital Signs: Yes Vital Signs: Vital Signs x48h Temp Pulse Resp BP Pulse Ox 12/24/22 16:08 81 16 125/73 98 12/24/22 12:15 36.8 C 68 15 99/54 L 100 12/24/22 10:13 36.7 C 82 20 94/60 100 - Physical Exam General Appearance: positive: No acute distress, Alert Eyes Bilateral: positive: PERRL, EOMI ENT: positive: No signs of dehydration Neck: positive: No JVD, Trachea midline Respiratory: positive: No respiratory distress Cardiovascular: positive: Regular rate & rhythm Abdomen: positive: No distention, Tenderness (rlq tenderness. benign abdomen otherwise) Neurologic/Psychiatric: positive: Oriented x3 Conclusion/Plan - Problem List (1) Appendicitis with peritoneal abscess Conclusion/Plan: well defined walled off anterior abscess. IR has agreed to drain tomorrow. she has a benign abdominal exam. plan home after IR drain and close follow up. interval appendectomy recommended in 6 or more weeks - Lab Results Fish Bones: 03/08/23 12:35 12/24/22 12:35 - Diagnostic Imaging Results Diagnostic Imaging Results: positive: Read independently (walled off well defi tad anterior rlq abscess)
[2022-12-24] MEDS: D5.45NS W/20 MEQ KCL 1,000 ML IV SCH (19:04)
[2022-12-24] MEDS: cefTRIAXone 1 GM in SODIUM CHLORIDE 0.9% MINIBAG 100 ML IV SCH (21:48)
[2022-12-24] MEDS: metroNIDAZOLE 250 MG TABLET PO SCH (21:48)
[2022-12-25] MEDS: D5.45NS W/20 MEQ KCL 1,000 ML IV SCH (06:02)
[2022-12-25] MEDS: metroNIDAZOLE 250 MG TABLET PO SCH ×2 (06:02→14:09)
[2022-12-25] MEDS ORDERED: LEVOTHYROXINE 112 MCG TABLET PO SCH (07:00)
[2022-12-25 08:18] LABS: INR 1.2 (0.8-1.2); PT - PROTHROMBIN TIME 13.7 secs (9.9-12.6)
[2022-12-25] MEDS ORDERED: TRIAMT/HCTZ 37.5 MG/25 MG CAPSULE PO SCH (09:00)
[2022-12-25] MEDS ORDERED: lisinopriL 5 MG TABLET PO SCH (09:00)
[2022-12-25] MEDS: cefTRIAXone 1 GM in SODIUM CHLORIDE 0.9% MINIBAG 100 ML IV SCH (09:17)
[2022-12-25] MEDS: SODIUM CHLORIDE FLUSH 0.9% 10 ML SYRINGE IVP SCH (09:17)
[2022-12-25] MEDS ORDERED: LIDOCAINE-MPF 1% 5 ML VIAL ONE (11:08)
[2022-12-25] MEDS ORDERED: MIDAZOLAM 2 MG/2 ML VIAL ONE (11:17)
[2022-12-25] MEDS ORDERED: fentaNYL 100 MCG/2 ML VIAL ONE (11:17)
--- NOTE | 2022-12-25 11:20 | PHARMACY PROGRESS NOTE ---
- Best Possible Medication History Admit Date and Time: 12/24/22 4962 Processed by: Pharmacy Medication History completed: Yes Patient Interview: Completed Secondary Source(s): Insurance records As the person ultimately responsible for medication therapy, providers are able to order a medication from an existing home medication list in [facility] via the "Reconcile Routine" prior to Confirmation of that medication by ground support equipment fitter. Such practice is discouraged except when the physician, in their clinical judgment, deems that a medical need exists for a medication without regard to previous use.
[2022-12-25 14:04] VITALS: BP 93/58
--- NOTE | 2022-12-25 14:38 | Discharge Plan ---
Discharge Plan Problem Reviewed?: Yes Disposition: Home, Self Care Condition: Good Prescriptions: Ciprofloxacin HCl [Cipro] 500 mg PO BID 7 Days #14 tablet metroNIDAZOLE [Flagyl] 500 mg PO TID 7 Days #21 tablet Diet: Regular Activity Restrictions: No Restrictions Shower Restrictions: Yes (keep drain site dry) Driving Restrictions: No Health Concerns: abdominal abscess and ruptured appendix Plan of Treatment: drain catheter placed Assessment: doing well after drain placement Additional Instructions or Follow Up instructions: call the surgery office with any concerns call to make a follow up appointment in the surgery office [phone] No Smoking: If you smoke, Please STOP! Call for help.
--- NOTE | 2022-12-25 14:42 | DISCHARGE SUMMARY ---
"Discharge Summary Admit Date: 12/25/22 Discharge Date: 12/25/22 Discharging Provider: brandi cuellar Code Status: Attempt Resuscitation Discharge Facility Name: [facility] - DIAGNOSES Admission Diagnoses: ruptured appendix with abscess Discharge Diagnoses with Status of Each Condition: home in good condition - HPI History of Present Illness: right lower quadrant pain for nearly a week. ct scan ruptured appendix with abscess. afebrile and benign abdominal exam. IR drain placed 12/25/2022. no nausea. d/c home in good condition 12/25/2022 - CONSULTS | PROCEDURES Procedures: IR drain rlq - ALLERGIES Allergies/Adverse Reactions: Allergies Allergy/AdvReac Type Severity Reaction Status Date / Time Penicillins Allergy Rash Verified 12/24/22 10:15 - MEDICATIONS Home Medications: Ambulatory Orders Medication Instructions Recorded Confirmed Atorvastatin [Lipitor] 10 mg PO HS 12/24/22 12/24/22 Levothyroxine Sodium [Synthroid] 112 mcg PO DAILY 12/24/22 12/24/22 Lisinopril [Zestril] 10 mg PO DAILY 12/24/22 12/24/22 Triamterene/Hydrochlorothiazid 1 each PO DAILY 12/24/22 12/24/22 [Maxzide 75 mg-50 mg Tablet] Ascorbic Acid [Vitamin C] 500 mg PO DAILY 12/25/22 12/25/22 Calcium Carbonate [Calcium] 600 mg PO DAILY 12/25/22 12/25/22 Cholecalciferol (Vitamin D3) 2,000 unit PO DAILY 12/25/22 12/25/22 [Vitamin D3] Ciprofloxacin HCl [Cipro] 500 mg PO BID 7 Days #14 tablet 12/25/22 Cyanocobalamin (Vitamin B-12) 2,000 mcg PO DAILY 12/25/22 12/25/22 [Vitamin B-12] [place] Astaxanthin 1 ea PO HS 12/25/22 12/25/22 Magnesium Chloride [Magnesium] 64 mg PO HS 12/25/22 12/25/22 Tumeric/Ging/[place]/Oreg/Capryl 1 each PO HS 12/25/22 12/25/22 [Candicidal Capsule] Ubidecarenone/Vit E Acet [Co Q-10 2 cap PO HS 12/25/22 12/25/22 100 mg Softgel] Vitamin B Complex 1 each PO DAILY 12/25/22 12/25/22 metroNIDAZOLE [Flagyl] 500 mg PO TID 7 Days #21 tablet 12/25/22 - PHYSICAL EXAM AT DISCHARGE General Appearance: positive: No acute distress, Alert Eyes Bilateral: positive: PERRL, EOMI, No scleral icterus ENT: positive: No signs of dehydration Neck: positive: No JVD, Trachea midline Respiratory: positive: No respiratory distress Abdomen: positive: Non-tender, No distention Neurologic/Psychiatric: positive: Oriented x3 - LABS Result Diagrams: 12/24/22 12:35 12/24/22 12:35 - FOLLOW UP Follow Up: surgery office. please call with any concerns and to make an appointment [phone]"
--- NOTE | 2022-12-29 08:45 | CT Report ---
PROCEDURE: PERITONEAL ABSC DRAIN Sedation analgesia for 30 minutes. INDICATIONS: rlq abscess TECHNIQUE: The indications, alternatives, benefits, risks, and possible complications of the procedure were comm unicated to the patient. Informed written consent from the patient was obtained and placed in the art. Continuous EKG and hemodynamic monitoring was started by trained personnel. IV fentanyl and Alayna sed for conscious sedation for 30 minutes was administered. For radiation dose reduction, the followi ng was used: automated exposure control, adjustment of mA and/or kV according to patient size. The patient was brought to the CT suite and social media campaign manager spiral CT imaging was performed with localization g rid. The appropriate site for percutaneous access to the abscess targeted in the right lower quadran t was marked, was prepped and draped sterilely, and was infused with local anaesthesia. Under CT valerie dance, an 18-gauge Chiba needle was advanced to the area of abscess. An 035 Amplatz wire was advanced , over which a 6 Iranian and 8 Iranian dilators were placed. 8 Iranian pigtail catheter was placed withi n the fluid collection. The trocar and needle were then removed, and the patient was sent for post-pr ocedure monitoring. COMPARISON: CT abdomen pelvis 12/24/2022 FINDINGS: Right lower quadrant fluid collection with pigtail catheter. IMPRESSION: Successful CT-guided right lower quadrant drain placement. Reviewed by: Mary Zamarripa MD on 12/29/2022 8:44 AM PDT Approved by: Mary Zamarripa MD on 12/29/2022 8:44 AM PDT Station ID: [id number]
== END 2022-12-25 15:30 | disposition home or self-care (01) ==
LOC: ED 10:04 → MS2 16:32
PROVIDERS: ADMIT Surgery; ATTEND Surgery
DX: K35.33 Acute appendicitis with perforation, localized peritonitis, and gangrene, with abscess (principal)
CPT/HCPCS: 36415; 49406; 74177; 80053; 81001; 83690; 85025; 85610; 87086; 96361; 96365; 96366; 96367; 96375; 96376; 99284; 99285; A9270; G0378; Q9967; 81003

== ENCOUNTER 2022-12-27 11:36 | Emergency (ER) | payer MEDICARE, BC ==
[2022-12-27 11:49] VITALS: BP 127/72
--- OUTSIDE RECORDS SUMMARY | 2022-12-27 11:57 | EXTERNAL MEDICAL SUMMARY RPT | Continuity of Care Document ---
:1950 Author Organization [facility] Address [address] [place] [address] Phone Care Team Providers Name Role Phone Kareem Sanchez Unavailable Unavailable Allergies No information. Encounters No information. Functional Status No information. Immunizations No information. 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 (unknown) (no (unknown) (unknown) the summer [...] unknown) Confirmed 12/01/22] (unknown) (no (unknown) (unknown) [id number] (units (unkn own) date) unknown) (unknown) (no [...] own) date) unknown) (unknown) (no (unknown) (unknown) [place], [place] (units ( unknown) date) [id number] unknown) (unknown) (no (unknown) (unknown) Anesthesia (units [...] (unknown) (unknown) : 1950 (units (unknown) date) Acct:[id number] unknown) (unknown) (no (unknown) (unknown) Dept at [...] unknown) effort is made to edit content, auto fleet manager errors (unknown) (no (unknown) (unknown) tabs 11/26/21 [...] unknown) Confirmed 12/01/22] (unknown) (no (unknown) (unknown) [id number] (units (unkn own) date) unknown) (unknown) (no [...] own) date) unknown) (unknown) (no (unknown) (unknown) [place], [place] (units ( unknown) date) [id number] unknown) (unknown) (no (unknown) (unknown) Anesthesia (units [...] (unknown) (unknown) : 1950 (units (unknown) date) Acct:[id number] unknown) (unknown) (no (unknown) (unknown) Dept at [...] unknown) effort is made to edit content, auto fleet manager errors (unknown) (no (unknown) (unknown) tabs 11/26/21 [...] unknown) Confirmed 12/01/22] (unknown) (no (unknown) (unknown) [id number] (units (unkn own) date) unknown) (unknown) (no [...] own) date) unknown) (unknown) (no (unknown) (unknown) [place], [place] (units ( unknown) date) [id number] unknown) (unknown) (no (unknown) (unknown) Anesthesia (units [...] (unknown) (unknown) : 1950 (units (unknown) date) Acct:[id number] unknown) (unknown) (no (unknown) (unknown) DONE ORDERED [...] (unknown) Intake performed (units (unknown) date) by: [place],Sara L unknown) (unknown) (no (unknown) (unknown) Intake [...] unknown) effort is made to edit content, auto fleet manager errors (unknown) (no (unknown) (unknown) tabs 11/26/21 [...] unknown) Confirmed 12/01/22] (unknown) (no (unknown) (unknown) [id number] (units (unkn own) date) unknown) (unknown) (no [...] own) date) unknown) (unknown) (no (unknown) (unknown) [place], [place] (units ( unknown) date) [id number] unknown) (unknown) (no (unknown) (unknown) Anesthesia (units [...] (unknown) (unknown) : 1950 (units (unknown) date) Acct:[id number] unknown) (unknown) (no (unknown) (unknown) DONE ORDERED [...] unknown) effort is made to edit content, auto fleet manager errors (unknown) (no (unknown) (unknown) tabs 11/26/21 [...] unknown) Confirmed 12/01/22] (unknown) (no (unknown) (unknown) [id number] (units (unkn own) date) unknown) (unknown) (no [...] (unknown) IFEANYI Kaur (units ( unknown) date) [id number] unknown) (unknown) (no (unknown) (unknown) Anesthesia (units [...] (unknown) (unknown) : 1950 (units (unknown) date) Acct:[id number] unknown) (unknown) (no (unknown) (unknown) DONE ORDERED [...] unknown) effort is made to edit content, auto fleet manager errors (unknown) (no (unknown) (unknown) tabs 12/01/22 [...] unknown) Confirmed 12/01/22] (unknown) (no (unknown) (unknown) [id number] (units (unkn own) date) unknown) (unknown) (no [...] own) date) unknown) (unknown) (no (unknown) (unknown) [place], [place] (units ( unknown) date) [id number] unknown) (unknown) (no (unknown) (unknown) Anesthesia (units [...] (unknown) (unknown) : 1950 (units (unknown) date) Acct:[id number] unknown) (unknown) (no (unknown) (unknown) DONE ORDERED [...] unknown) effort is made to edit content, auto fleet manager errors (unknown) (no (unknown) (unknown) specified (units [...] unknown) Confirmed 12/01/22] (unknown) (no (unknown) (unknown) [id number] (units (unkn own) date) unknown) (unknown) (no [...] own) date) unknown) (unknown) (no (unknown) (unknown) [place], [place] (units ( unknown) date) [id number] unknown) (unknown) (no (unknown) (unknown) Anesthesia (units [...] (unknown) (unknown) : 1950 (units (unknown) date) Acct:[id number] unknown) (unknown) (no (unknown) (unknown) DONE ORDERED [...] unknown) effort is made to edit content, auto fleet manager errors (unknown) (no (unknown) (unknown) specified (units [...] unknown) Confirmed 12/01/22] (unknown) (no (unknown) (unknown) [id number] (units (unkn own) date) unknown) (unknown) (no [...] own) date) unknown) (unknown) (no (unknown) (unknown) [place], [place] (units ( unknown) date) [address] unknown) (unknown) (no (unknown) (unknown) Anesthesia (units [...] (unknown) (unknown) : 1950 (units (unknown) date) Acct:[id number] unknown) (unknown) (no (unknown) (unknown) DONE ORDERED [...] ligation (-1982) unknown) (unknown) (no (unknown) (unknown) Status: Acute [...] unknown) effort is made to edit content, auto fleet manager errors (unknown) (no (unknown) (unknown) specified (units [...] unknown) Confirmed 12/01/22] (unknown) (no (unknown) (unknown) [id number] (units (unkn own) date) unknown) (unknown) (no [...] own) date) unknown) (unknown) (no (unknown) (unknown) [place], [place] (units ( unknown) date) [id number] unknown) (unknown) (no (unknown) (unknown) Anesthesia (units [...] (unknown) (unknown) : 1950 (units (unknown) date) Acct:[id number] unknown) (unknown) (no (unknown) (unknown) DONE ORDERED [...] Patient: (units (unkno wn) date) Ela Ramírez Toro unknown) MR#: [id number] (unknown) (no (unknown) (unknown) [...] unknown) effort is made to edit content, auto fleet manager errors (unknown) (no (unknown) (unknown) specified (units [...] unknown) Confirmed 12/01/22] (unknown) (no (unknown) (unknown) [id number] (units (unkn own) date) unknown) (unknown) (no [...] own) date) unknown) (unknown) (no (unknown) (unknown) [place], [place] (units ( unknown) date) [id number] unknown) (unknown) (no (unknown) (unknown) Anesthesia (units [...] (unknown) (unknown) : 1950 (units (unknown) date) Acct:[id number] unknown) (unknown) (no (unknown) (unknown) Denies any [...] normal unknown) (unknown) (no (unknown) (unknown) Tinnitus (-2012) (units [...] unknown) effort is made to edit content, auto fleet manager errors (unknown) (no (unknown) (unknown) specified (units [...] date) Risk(1): unknown) (unknown) (no (unknown) (unknown) [address] [place] [address] (units (unknown) date) unknown) (unknown) (no (unknown) [...] (unknown) (unknown) Accession Number: (units (unknown) date) [id number] unknown) (unknown) (no (unknown) (unknown) Accession Number: (units (unknown) date) [id number] unknown) (unknown) (no (unknown) (unknown) Accession number: (units (unknown) date) [id number] unknown) (unknown) (no (unknown) (unknown) Age/Sex: 72 / F (units (unknown) date) Date of Service: unknown) (unknown) (no (unknown) (unknown) [place], [place] (units ( unknown) date) [address] unknown) (unknown) (no (unknown) (unknown) Approximately (units ( unknown) date) unknown) (unknown) (no (unknown) (unknown) BILATERAL DIGITAL (units (unknown) date) SCREENING unknown) MAMMOGRAM 3D/2D WITH CAD: 12/22/2022 (unknown) (no (unknown) (unknown) Based on the [place] (units (unknown) date) [place] model (a unknown) risk assessment model) the [...] (unknown) (unknown) : 1950 (units (unknown) date) Acct:[id number] unknown) (unknown) (no (unknown) (unknown) Date g/cm2 [...] screening for osteoporosis; (unknown) (no (unknown) (unknown) [facility] (units (unknown) date) unknown) (unknown) (no (unknown) (unknown) Loc: RAD (units (unkno wn) date) unknown) (unknown) (no (unknown) (unknown) [id number] (units (unk nown) date) unknown) (unknown) (no [...] (unknown) (unknown) Reported by: Kathy (units (unknown) date) Marcello Santos on unknown) 12/22/2022 10:48:00 AM. (unknown) (no [...] (unknown) (no date) (unknown) (unknown) Positive (units [address]7417 -3 unknown) Result panel 40 (unknown) (no date) (unknown) (unknown) Positive (units (unkn own) unknown) (unknown) (no date) (unknown) (unknown) Positive (units (unkn own) unknown) Social History date description facility 2022-12-01 00:00 Never smoked tobacco (finding) [facility] Vital Signs date measurement value units [...]
--- NOTE | 2022-12-27 12:59 | ED Physician Documentation ---
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 Has been on abx. She noted drainage to the dressing last night and this morning. No fevers. 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: Tubal ligation, Oophrectomy HEENT: Cataracts - Present Medications Home Medications: Ambulatory Orders Medication Instructions Recorded Confirmed Atorvastatin [Lipitor] 10 mg PO HS 12/24/22 12/24/22 Levothyroxine Sodium [Synthroid] 112 mcg PO DAILY 12/24/22 12/24/22 Lisinopril [Zestril] 10 mg PO DAILY 12/24/22 12/24/22 Triamterene/Hydrochlorothiazid 1 each PO DAILY 12/24/22 12/24/22 [Maxzide 75 mg-50 mg Tablet] Ascorbic Acid [Vitamin C] 500 mg PO DAILY 12/25/22 12/25/22 Calcium Carbonate [Calcium] 600 mg PO DAILY 12/25/22 12/25/22 Cholecalciferol (Vitamin D3) 2,000 unit PO DAILY 12/25/22 12/25/22 [Vitamin D3] Ciprofloxacin HCl [Cipro] 500 mg PO BID 7 Days #14 tablet 12/25/22 Cyanocobalamin (Vitamin B-12) 2,000 mcg PO DAILY 12/25/22 12/25/22 [Vitamin B-12] [place] Astaxanthin 1 ea PO HS 12/25/22 12/25/22 Magnesium Chloride [Magnesium] 64 mg PO HS 12/25/22 12/25/22 Tumeric/Ging/[place]/Oreg/Capryl 1 each PO HS 12/25/22 12/25/22 [Candicidal Capsule] Ubidecarenone/Vit E Acet [Co Q-10 2 cap PO HS 12/25/22 12/25/22 100 mg Softgel] Vitamin B Complex 1 each PO DAILY 12/25/22 12/25/22 metroNIDAZOLE [Flagyl] 500 mg PO TID 7 Days #21 tablet 12/25/22 - Allergies Allergies/Adverse Reactions: Allergies Allergy/AdvReac Type Severity Reaction Status Date / Time Penicillins Allergy Rash Verified 12/27/22 11:49 - Social History Does the pt smoke?: No Smoking Status: Former smoker PD ED PE NORMAL - Vitals Vital signs reviewed: Yes - General General: Alert and oriented X 3, No acute distress, Well developed/nourished - Cardiac Cardiac: RRR, No murmur - Respiratory Respiratory: Clear bilaterally - Abdomen Abdomen: Normal bowel sounds, Soft, Non tender, Non distended, Other (right lower abd with small puncture hole with few drops of serous fluid out during exam. As she pulled down her pants, I could see the catheter tip out of skin and just free. Does not appear to have been sutured. Was held by dressing. The dressing is moist and slightly loose. no redness nor tender.) Results - Vitals Vitals: Vital Signs - 24 hr 12/27/22 11:45 Temperature 36.7 C Heart Rate 74 Respiratory 16 Rate Blood Pressure 127/72 O2 Saturation 100 Oxygen O2 Source Room air PD Medical Decision Making - ED course Complexity details: considered differential (post operative drain percutaenously for appy abscess. Feeling okay. noted some drainage onto dressing and little into bag last night into today. ), d/w patient ED course: exam of the area. She pulled down her pants/underwear and the tip of the catheter was loose just under the dressing and not in the abdomen. Minmal drops of serous fluid out from wound, even with palpation so does not feel like subcut buildup of fluid. I talked with Dr. Delcid, software applications engineer for surgery, who felt the patient could continue without the drain and see if any fluid still comes out the hole (so still able to drain, since the drain itself was just to gravity drainage to bag). Has follow up in 3 days. To return if fever/increased pain or redness. Can decide on repeat cT on follow up but don't really need one right now. Of course to continue the oral abx. Departure - Departure Disposition: 01 Home, Self Care Clinical Impression: Draining postoperative wound Condition: Stable Record reviewed to determine appropriate education?: Yes Follow-Up: Nam Bruce MD [Provider Admit Priv/Credential] - Comments: Cleanse the abdomen with soap and water 2-3 times daily to help decrease any germs that may be spread onto the surface. Change the dressing over that area after cleansing. You do have the puncture hole that hopefully will still act as a drainage opening. I talked to the on-call surgeon who felt it was appropriate to just watch and see how you do with allowing drainage through the area and continuing the antibiotics that you are on. If you develop increasing pain in the area, distention, fevers, vomiting, diffuse belly pain or other concerns then return sooner. Otherwise follow-up in the office Thursday as planned. At that point I would defer to Dr. Desir to decide if it is doing well enough to just keep doing what you are doing or if he feels they want to re-CT to ensure no recollection of fluid etc. Discharge Date/Time: 12/27/22 14:17
== END 2022-12-27 14:17 | disposition home or self-care (01) ==
LOC: ED 11:36
DX: Z48.03 Encounter for change or removal of drains (principal); Z87.891 Personal history of nicotine dependence
CPT/HCPCS: 99282; 99283

== ENCOUNTER 2023-04-02 06:20 | Day surgery (SDC) | payer MEDICARE, BC ==
[~2023-04-02 06:20] MED LIST: CIPROFLOXACIN 400 MG/200 ML 400 MG/200 ML BAG IV ONE
[2023-04-02] MEDS ORDERED: LACTATED RINGERS 1,000 ML IV ONE ×2 (06:48→08:57)
[2023-04-02] MEDS ORDERED: BUPIVACAINE 0.25% PF 30 ML VIAL ONE (07:03)
[2023-04-02] MEDS ORDERED: fentaNYL 100 MCG/2 ML VIAL ONE (07:04)
[2023-04-02] MEDS ORDERED: DEXAMETHASONE 4 MG/ML VIAL ONE (07:04)
[2023-04-02] MEDS ORDERED: ROCURONIUM 50 MG/5 ML VIAL ONE (07:04)
[2023-04-02] MEDS ORDERED: PROPOFOL 500 MG/50 ML 500 MG/50 ML VIAL ONE (07:04)
[2023-04-02] MEDS ORDERED: ONDANSETRON 4 MG/2 ML VIAL ONE (07:04)
[2023-04-02] MEDS ORDERED: CLINDAMYCIN 900 MG/50 ML 50 ML IV SCH (07:17)
[2023-04-02] MEDS ORDERED: ATROPINE ABBOJECT 1 MG/10 ML SYRINGE IVP PRN (07:18)
[2023-04-02] MEDS ORDERED: ePHEDrine 50 MG/ML VIAL IVP PRN (07:18)
[2023-04-02] MEDS ORDERED: HYDROmorphone 0.5 MG/0.5 ML SYRINGE IVP PRN ×2 (07:18→09:17)
[2023-04-02] MEDS ORDERED: NALOXONE 0.4 MG/ML VIAL IVP PRN (07:18)
[2023-04-02] MEDS ORDERED: ONDANSETRON 4 MG/2 ML VIAL IVP PRN (07:18)
[2023-04-02] MEDS ORDERED: fentaNYL 100 MCG/2 ML VIAL IVP PRN (07:18)
--- NOTE | 2023-04-02 07:18 | ANESTHESIA ---
Pre-Anesthesia VS, & Labs - Diagnosis lap appy poss open - Procedure appendicitis w abscess Vital Signs: Temp Pulse Resp BP Pulse Ox O2 Flow Rate 36.2 C L 62 11 L 141/73 H 100 04/02/23 06:25 04/02/23 06:25 04/02/23 06:25 04/02/23 06:25 04/02/23 06:25 Height: 5 ft 6 in Weight (kg): 64 kg Body Mass Index: 22.7 BMI Classification: Normal - NPO >8 hours - Is Patient ?: No Home Medications and Allergies Atorvastatin [Lipitor] 10 mg PO HS 12/24/22 Levothyroxine Sodium [Synthroid] 112 mcg PO DAILY 12/24/22 Lisinopril [Zestril] 10 mg PO DAILY 12/24/22 Triamterene/Hydrochlorothiazid [Maxzide 75 mg-50 mg Tablet] 1 each PO DAILY 12/24/22 Ascorbic Acid [Vitamin C] 500 mg PO DAILY 12/25/22 Calcium Carbonate [Calcium] 600 mg PO DAILY 12/25/22 Cholecalciferol (Vitamin D3) [Vitamin D3] 2,000 unit PO DAILY 12/25/22 Cyanocobalamin (Vitamin B-12) [Vitamin B-12] 2,000 mcg PO DAILY 12/25/22 [place] Astaxanthin 1 ea PO HS 12/25/22 Magnesium Chloride [Magnesium] 64 mg PO HS 12/25/22 Tumeric/Ging/[place]/Oreg/Capryl [Candicidal Capsule] 1 each PO HS 12/25/22 Ubidecarenone/Vit E Acet [Co Q-10 100 mg Softgel] 2 cap PO HS 12/25/22 Vitamin B Complex 1 each PO DAILY 12/25/22 Allergies/Adverse Reactions: Allergies Allergy/AdvReac Type Severity Reaction Status Date / Time Penicillins Allergy Rash Verified 12/27/22 11:49 Anes History & Medical History - Anesthetic History Anesthesia Complications: reports: No previous complications Family history of Anesthesia Complications: Denies Family history of Malignant Hyperthermia: Denies - Medical History Cardiovascular: reports: Hypertension, High cholesterol Pulmonary: reports: None Gastrointestinal: reports: None Urinary: reports: None Neuro: reports: None Musculoskeletal: reports: None Endocrine/Autoimmune: reports: HyPOthyroidism Blood Disorders: reports: None Skin: reports: None Smoking Status: Former smoker - Surgical History General: Eyes Ears Nose Throat (EENT): reports: Cataracts, Tonsil/Adenoidectomy Gynecologic: reports: Tubal ligation, Oophrectomy Orthopedic: reports: Other Exam General: Alert, Oriented x3, Cooperative Dental: WNL Mouth Openin Fingerbreadth Neck Mobility: Normal Mallampati classification: II Thyromental Distance: 4-6 cm Respiratory: Lungs clear Cardiovascular: Regular rate Plan Anesthesia Type: General Consent for Procedure(s) Verified and Reviewed: Yes Code Status: Attempt Resuscitation ASA classification: 2-Mild systemic disease Is this case an emergency?: No
--- NOTE | 2023-04-02 07:26 | HISTORY & PHYSICAL EXAMINATION ---
Chief Complaint - Chief Complaint Chief Complaint: hx ruptured appendix History of Present Illness - History Obtained From Records Reviewed: yes History obtained from: pt Exam Limitations: none - History of Present Illness HPI Comment/Other: ruptured appendix with walled off abscess 3 months ago treated with drain and antibiotics. well now. here for interval appendectomy History - Past Medical History Cardiovascular: reports: Hypertension, High cholesterol Respiratory: reports: None Neuro: reports: None Endocrine/Autoimmune: reports: HyPOthyroidism GI: reports: None : reports: None HEENT: reports: Chronic vision loss, Other Psych: reports: None Musculoskeletal: reports: None Derm: reports: None MRSA Hx?: No - Past Surgical History General: Ortho: reports: Other /[employer]: reports: Tubal ligation, Oophrectomy HEENT: reports: Cataracts, Tonsil/Adenoidectomy Meds/Allgy - Home Medications Home Medications: Ambulatory Orders Medication Instructions Recorded Confirmed Atorvastatin [Lipitor] 10 mg PO HS 12/24/22 03/26/23 Levothyroxine Sodium [Synthroid] 112 mcg PO DAILY 12/24/22 03/26/23 Lisinopril [Zestril] 10 mg PO DAILY 12/24/22 03/26/23 Triamterene/Hydrochlorothiazid 1 each PO DAILY 12/24/22 03/26/23 [Maxzide 75 mg-50 mg Tablet] Ascorbic Acid [Vitamin C] 500 mg PO DAILY 12/25/22 03/26/23 Calcium Carbonate [Calcium] 600 mg PO DAILY 12/25/22 03/26/23 Cholecalciferol (Vitamin D3) 2,000 unit PO DAILY 12/25/22 03/26/23 [Vitamin D3] Cyanocobalamin (Vitamin B-12) 2,000 mcg PO DAILY 12/25/22 03/26/23 [Vitamin B-12] [place] Astaxanthin 1 ea PO HS 12/25/22 03/26/23 Magnesium Chloride [Magnesium] 64 mg PO HS 12/25/22 03/26/23 Tumeric/Ging/[place]/Oreg/Capryl 1 each PO HS 12/25/22 03/26/23 [Candicidal Capsule] Ubidecarenone/Vit E Acet [Co Q-10 2 cap PO HS 12/25/22 03/26/23 100 mg Softgel] Vitamin B Complex 1 each PO DAILY 12/25/22 03/26/23 - Allergies Allergies/Adverse Reactions: Allergies Allergy/AdvReac Type Severity Reaction Status Date / Time Penicillins Allergy Rash Verified 12/27/22 11:49 Review of Systems - Other Findings Other Findings: 10 pt ros as above otherwise unremarkable Exam - Vital Signs Reviewed Vital Signs: Yes Vital Signs: Vital Signs x48h Temp Pulse Resp BP Pulse Ox 04/02/23 06:25 36.2 C L 62 11 L 141/73 H 100 - Physical Exam General Appearance: positive: No acute distress, Alert Eyes Bilateral: positive: PERRL, EOMI, No scleral icterus ENT: positive: No signs of dehydration Neck: positive: No JVD, Trachea midline Respiratory: positive: No respiratory distress Cardiovascular: positive: Regular rate & rhythm Abdomen: positive: Non-tender, No distention Neurologic/Psychiatric: positive: Oriented x3 Conclusion/Plan - Problem List (1) Appendicitis with peritoneal abscess Conclusion/Plan: plan interval appendectomy. parq held and consent obtained
[2023-04-02] MEDS ORDERED: LIDOCAINE-PF 2% 10 ML AMP SUBQ ONE (07:31)
[2023-04-02] MEDS ORDERED: LACTATED RINGERS 1,000 ML IV SCH (08:00)
[2023-04-02] MEDS ORDERED: SODIUM CHLORIDE 0.9% 10 ML VIAL IVP ONE (08:00)
[2023-04-02] MEDS ORDERED: BUPIVACAINE 0.25% PF 30 ML VIAL SUBQ ONE (08:05)
[2023-04-02] MEDS ORDERED: SUGAMMADEX 200 MG/2 ML VIAL IVP ONE (08:32)
[2023-04-02] MEDS ORDERED: KETOROLAC 30 MG/ML VIAL ONE (08:42)
[2023-04-02] MEDS ORDERED: HYDROcod/ACETAM 5/325 MG TABLET PO PRN (09:17)
--- NOTE | 2023-04-02 09:24 | OPERATIVE REPORT ---
Operative Report - General Procedure Date: 04/02/23 Planned Procedure: interval appendectomy Pre-Op Diagnosis: history ruptured appendix with abscess Procedure Performed: lap appendectomy Post Op Diagnosis: same - Procedure Note Primary Surgeon: brandi cuellar Anesthesia Technique: General ET tube, Local Pathology: appendix Estimated Blood Loss (mL): 2 Drain/Tube Type: Other (none) Indications: as above Findings: mild adhesions and thickened appendix. no apparent cancer Complications: none - Other Other Information/Narrative: The patient was properly identified brought to the operating room and placed in supine position. The patient was previously given antibiotics. Sequential compression devices were placed. General endotracheal anesthesia was induced. The patient was prepped and draped in a sterile fashion. Local anesthetic was given to incision areas. An infraumbilical incision was made in and proceeded down to the fascia. The fascia was incised lifted upwards and abdomen entered with a Veress needle. CO2 was insufflated to a pressure of 15. A 12 mm trocar was placed with 30 degree scope. There was no evidence of injury from Veress needle or trocar placement. Under direct vision a 5 mm trocar was placed suprapubic and a 5 mm trocar was placed in the right upper quadrant. Appendix was identified and retracted anteriorly. Peritoneal attachments were taken down with careful use of cautery. Appendix was mobilized more anterior. A plane was then created between the mesoappendix and the appendix at the cecum. Appendix was divided with an Endo NUHA intestinal load to include up a small portion of the cecum. The mesoappendix was then divided with an Endo NUHA vascular load. There was secure closure at the cecum and hemostasis was assured. The appendix was brought out. The abdomen was thoroughly irrigated and hemostasis again assured. Trochars were removed under direct vision. Fascia at the infraumbilical site was closed with a running 0 Vicryl suture. Subcutaneous tissue was irrigated and skin reapproximated with buried interrupted 4-0 Monocryl. Dressings were applied. The patient tolerated the procedure well was awakened and brought to recovery in good condition.
[2023-04-02] MEDS ORDERED: HYDROmorphone 0.5 MG/0.5 ML SYRINGE ONE (09:52)
[2023-04-02 11:17] VITALS: BP 104/61
--- NOTE | 2023-04-02 11:48 | ANESTHESIA POST OP EVALUATION ---
Anesthesia Post Eval - Post Anesthesia Eval Vitals: Last Vital Signs Temp 36.2 C L 04/02/23 10:45 Pulse 57 L 04/02/23 10:45 Resp 14 04/02/23 10:45 BP 104/61 04/02/23 10:45 Pulse Ox 99 04/02/23 10:45 O2 Flow Rate CV Function Including HR & BP: Stable Pain Control: Satisfactory Nausea & Vomiting: Negative Mental Status: Baseline Respiratory Status: Airway Patent Hydration Status: Satisfactory Anesthesia Complications: None
== END 2023-04-02 06:21 | disposition home or self-care (01) ==
LOC: SDS 06:20
PROVIDERS: ATTEND Surgery
PROC: 0DTJ4ZZ Resection of Appendix, Percutaneous Endoscopic Approach (ICD-10-PCS; principal; 2023-04-02 07:30)
DX: K36 Other appendicitis (principal); I10 Essential (primary) hypertension
CPT/HCPCS: 44970; J1170; J7120; 99211; 99213